=== PATIENT | male | born 1980 | race Caucasian/White ===

== ENCOUNTER 2025-10-24 16:17 | Inpatient (IN) | payer BC, SELFPAY ==
--- OUTSIDE RECORDS SUMMARY | 2025-10-23 17:35 | XMS_ITS | Encounter Summary ---
Author Organization [facility] Address [address] [place] [address] Care Team Providers Care Computer Aided Design Operator Name Role Phone Physician, No Pcp Primary Care Provider Unavaila ble Reason for Visit * Reason Comments Hallucinations Psychiatric Evaluation Encounter Details Date Type Department Care Team (Late st Contact Info) Description 10/23/2025 5:35 PM EST - 10/24/2025 3:57 PM EST Emergency [facility] [address] [place] [id number] Susanna Andrea MD [address] [place] [address] Will Hopson MD [address] [place] [address] Ciro Hernandez MD [address] [place] [id number] Elijah Walden MD [address] [place] [id number] Auditory hallucinations (Primary Dx); Paranoid delusion (CMS/HCC V24, CMS/HCC V28); Chest pain, unspecified type; Anxiety Discharge Disposition: Psychiatric Hospital Social History Tobacco Use Types Packs/Day Years Used Date Smoking Tobacco: Former Cigarettes 0 Q uit: 03/23/2011 Smokeless Tobacco: Never Quit: 03/23/2011 Alcohol Use Standard Drinks/Week Comments Not Currently 0 (1 standard drink = 0.6 oz pur e alcohol) Sex and Gender Information Value Date Recorded Sex Assigned at Male 10/23/2025 6:44 PM EST Legal Sex Male 4:52 AM EST Gender Identity Male 10/23/2025 6:44 PM EST Sexual Orientation Not on file documented as of this encounter Last Filed Vital Signs Vital Sign Reading Time Taken Comments Blood Pressure 129/82 10/24/2025 3:15 PM EST Pulse 68 10/24/2025 3:15 PM EST Temperature 36.6 C (97.9 F) 10/24/2025 3:15 PM EST Respiratory Rate 16 10/24/2025 3:15 PM EST Oxygen Saturation 97% 10/24/2025 3:15 PM EST Inhaled Oxygen Concentration - - Weight 90.7 kg (200 lb) 10/23/2025 5:20 PM EST Height 172.7 cm (5' 8 ) 10/23/2025 5:20 PM EST Body Mass Index 30.41 10/23/2025 5:20 PM EST documented in this encounter Functional Status * Are you deaf or do you have serious difficulty hearing? Answer Date of Assessment Author No 09/08/2025 9:39 AM Damian Cohen RN * Are you blind or do you have serious difficulty seeing, even when wearing glasses? Answer Date of Assessment Author No 09/08/2025 9:39 AM Damian Cohen RN * Do you have serious difficulty walking or climbing stairs? Answer Date of Assessment Author No 09/08/2025 9:39 AM Damian Cohen RN * Do you have serious difficulty dressing or bathing? Answer Date of Assessment Author No 09/08/2025 9:39 AM Damian Cohen RN * Because of a physical, mental, or emotional condition, do you have serious difficulty doing errandsalone such as visiting the doctor? Answer Date of Assessment Author No 09/08/2025 9:39 AM Damian Cohen RN * Calculated C-SSRS Risk Score (Lifetime/Recent) Answer Date of Assessment Author High Risk 10/24/2025 11:00 AM EST Mary Dorman RN * [place] Suicide Severity Rating Scale (Screener/Recent Self-Report) Question Answer Date of Assessment Author 1. Wish to be (Past 1 Month) Yes 10/24/2025 11:00 AM Mary Woo RN 2. Non-Specific Active Suicidal Thoughts (Past 1 Month) Yes 10/24/2025 11:00 AM Mary Woo RN 3. Active Suicidal Ideation with any Methods (Not Plan) Without Intent to Act (Past 1 Month) Yes 10/24/2025 11:00 AM Mary Woo RN 4. Active Suicidal Ideation with Some Intent to Act, Without Specific Plan (Past 1 Month) Yes 10/24/2025 11:00 AM Mary Woo RN 5. Active Suicidal Ideation with Specific Plan and Intent (Past 1 Month) Yes 10/24/2025 11:00 AM Mary Engle RN 6. Suicidal Behavior (Lifetime) Yes 10/24/2025 11:00 AM Mary Woo RN 6. Suicidal Behavior (3 Months) Yes 10/24/2025 11:00 AM Mary Woo RN documented as of this encounter Mental Status * Because of a physical, mental, or emotional condition, do you have serious difficulty concentrating, remembering, or making decisions? (5 years old or older) Answer Entry Date Author No 09/08/2025 9:39 AM EDT Damian Rios RN documented in this encounter Medications at Time of Discharge pantoprazole (PROTONIX) 40 mg EC tablet Take 1 tablet (40 mg total) by mouth 1 (one) time each day. 10/21/2025 documented as of this encounter Discharge Disposition Disposition Code Departure Means Destination Comment [facility] documented in this encounter Progress Notes * Elijah Walden MD - 10/24/2025 11:37 AM EST Angel Baker ED Course as of 10/24/25 1137 Misty Oct 23, [id number] ECG 12 lead 10/23/2025 18:06:18 on my read normal sinus rhythm, rate 87, regular, normal intervals, no ALBERT/D, no TWI, no prior for comparison [RG] 1910 Salicylate Level: <3.0 Negative [RG] 1910 TROPONIN I, HIGH SENSITIVITY: 3 WNL [RG] 191 Drug abuse screen 8a panel, urine All negative [RG] 1910 Ethanol Level: <3 Negative [RG] 1910 Methadone Screen, Urine: Negative Negative [RG] 191 Buprenorphine Screen Urine: Negative Negative [RG] 191 Comprehensive metabolic panel(!) Mild hypokalemia to 3.4, will replete, mild hyperbilirubinemia to 1.8, patient has no symptoms, do not feel this requires additional evaluation, otherwise within normal limits [RG] 1911 Acetaminophen Level: 11.1 Negative [RG] 191 PCP Scrn, Ur: Negative Negative [RG] 191 CBC and differential WNL [RG] 1927 Patient signed out to Dr. Hopson pending CXR, crisis evaluation once cleared [RG] 2022 Cleared to be seen by crisis [MZ] 2137 Seen by crisis plan for inpatient psych admission [MZ] FriOct 24, 2025 1136 Pt accepted for transfer to [place] under Dr Boston at 130pm today [TW] ED Course User Index [MZ] Will Hopson MD [RG] Susanna Andrea MD [TW] Elijah Walden MD Clinical Impressions as of 10/24/25 1137 Auditory hallucinations Paranoid delusion (CMS/HCC V24, CMS/HCC V28) Chest pain, unspecified type Anxiety * Radha Rodriguez LCSW - 10/24/2025 11:32 AM EST BED FOUND- Patient accepted to [facility], , by Dr. Angel Aldrich. They are requesting and ETA of 1:30. * Sandro Clinton - 10/24/2025 9:55 AM EST Rib Builder Note I met with the pt in his room, he was resting in bed. I was able to introduce myself and begin to build rapport. Using motivational interviewing, we were able to discuss and create a plan for his recovery path when he is d/c into the community. We spoke about medication to help with his cravings, to which I reached out to his providers to submit a consult with addiction services. He also requested a referral for a high school coach. I also spoke to him about peer recovery centers, and told him about the [place] [facility]. I provided him with a resource packet and my business card. I will continue to follow up and support the pt while in our care. Sandro Clinton Certified Rib Builder [address] [place] [address] [facility] [address] [place] [address] [facility] Office - Rib Builder Office - Addiction Office Rm 304 [email or web address] * Radha Rodriguez LCSW - 10/24/2025 7:27 AM EST Patients called, Maritza Hewitt [phone], she expressed concerns regarding the onset of hiscurrent presentation of hallucinations. She reported that the patients father had a similar situation when he abruptly stopped using substances and the issues resolved with medication treatment. She wanted us to be aware this may be related to past substance use verses mental health. * Yessenia Bustamante RN - 10/23/2025 5:22 PM EST Pt endorses hearing voices and increased depression. Endorses SI with plan to take pills denies HI. Pt states he feels his house is under surveillance and people are watching him. * Susanna Andrea MD - 10/23/2025 5:15 PM EST HPI Chief Complaint Patient presents with Hallucinations Psychiatric Evaluation Patient with history, per crisis note 09/08/2025, of BRIT, subclinical hypothyroidism, seen at that time for hallucinations, reported use of cocaine and marijuana, paranoia, discharged to outpatient program presents reporting worsening auditory hallucinations, states they are very negative, threatening, do not give him commands. He states he always has hallucinations but used to cover with alcohol but has been sober for last 2 years. He states cocaine use makes it worse, last use was a month ago, denies any other substance use. Patient states that he is feeling suicidal, has plan to OD on pills but does not have any pills in his possession, has not made attempts to harm himself. Patient denies HI, VH. He also notes that he gets regular intermittent chest pain, feels that this is associated with anxiety, most recently earlier today, this occurs daily, has no associated symptoms and no radiation. Patient denies history of heart or lung problems. He states [facility], has no psychiatrist or therapist locally, moved from [place] 2 years ago, only recently arranged new insurance in [place]. History provided by: Medical records and patient dopster used: No No data recorded Patient History Medical History[1] Surgical History[2] Family History[3] Social History Tobacco Use Smoking status: Former Current packs/day: 0.00 Types: Cigarettes Quit date: 03/23/2011 Years since quittin.5 Smokeless tobacco: Never Substance Use Topics Alcohol use: Not Currently Drug use: Not Currently Review of Systems Review of Systems Physical Exam ED Triage Vitals [10/23/25 1720] Temp Heart Rate Resp BP 37.2 ??C (99 ??F) 88 18 (!) 154/98 SpO2 Temp Source Heart Rate Source Patient Position 95 % Oral -- Sitting BP Location FiO2 (%) Right arm -- Physical Exam Vitals and nursing note reviewed. Constitutional: General: He is not in acute distress. Appearance: Normal appearance. He is not ill-appearing. Cardiovascular: Rate and Rhythm: Normal rate and regular rhythm. Heart sounds: Normal heart sounds. Pulmonary: Effort: Pulmonary effort is normal. Breath sounds: Normal breath sounds. Chest: Chest wall: No tenderness. Abdominal: Palpations: Abdomen is soft. Tenderness: There is no abdominal tenderness. Neurological: Mental Status: He is alert. Psychiatric: Mood and Affect: Mood is anxious. Speech: Speech normal. Behavior: Behavior is cooperative. Thought Content: Thought content is paranoid and delusional. Thought content includes suicidal ideation. Thought content does not include homicidal ideation. Thought content does not include suicidalplan. Comments: Mildly anxious ED Course & MDM Medical Decision Making Ddx: Schizophrenia, intoxication, SI, anxiety, panic attacks, less likely ACS, MSK, GI, pulmonary pathology Patient is mildly anxious but otherwise well-appearing with vitals hypertensive to 154/98 and otherwise WNL on RA on arrival and normal cardiopulmonary and abdominal exams, no chest wall tenderness. Will obtain EKG, CXR, trop, crisis labs. Will treat with hydroxyzine. Discussed plan, crisis consultonce medically cleared. Amount and/or Complexity of Data Reviewed External Data Reviewed: notes. Labs: ordered. Decision-making details documented in ED Course. Radiology: ordered. ECG/medicine tests: ordered and independent interpretation performed. Decision- making details documented in ED Course. Risk Diagnosis or treatment significantly limited by social determinants of health. ED Course as of 10/23/252009 [place] Oct 23, [id number] ECG 12 lead 10/23/2025 18:06:18 on my read normal sinus rhythm, rate 87, regular, normal intervals, no ALBERT/D, no TWI, no prior for comparison [RG] 191 Salicylate Level: <3.0 Negative [RG] 191 TROPONIN I, HIGH SENSITIVITY: 3 WNL [RG] 191 Drug abuse screen 8a panel, urine All negative [RG] 191 Ethanol Level: <3 Negative [RG] 191 Methadone Screen, Urine: Negative Negative [RG] 191 Buprenorphine Screen Urine: Negative Negative [RG] 191 Comprehensive metabolic panel(!) Mild hypokalemia to 3.4, will replete, mild hyperbilirubinemia to 1.8, patient has no symptoms, do not feel this requires additional evaluation, otherwise within normal limits [RG] 191 Acetaminophen Level: 11.1 Negative [RG] 191 PCP Scrn, Ur: Negative Negative [RG] 191 CBC and differential WNL [RG] [address] Patient signed out to Dr. Hopson pending CXR, crisis evaluation once cleared [RG] ED Course User Index [RG] Susanna Andrea MD Clinical Impressions as of 10/23/252009 Auditory hallucinations Paranoid delusion (CMS/HCC V24, CMS/HCC V28) Chest pain, unspecified type Anxiety Procedures Susanna Andrea MD 10/23/25 7037 [1] Past Medical History: Diagnosis Date Depression Sleep apnea DX:Sleep apnea; COMMENT: on CPAP Subclinical hypothyroidism DX:Subclinical hypothyroidism Tobacco dependence 01/05/2010 DX:Tobacco dependence; COMMENT: Quit 2009 [2] Past Surgical History: Procedure Laterality Date OTHER SURGICAL HISTORY PROCEDURE: DENIES PREVIOUS SURGERY [3] Family History Problem Relation Name Age of Onset Arthritis Mother Breast cancer Neg Hx Ovarian cancer Neg Hx Prostate cancer Neg Hx Colon cancer Neg Hx Diabetes Neg Hx Heart attack Neg Hx Stroke Neg Hx Susanna Andrea MD 10/23/252013 * Ciro Hernandez MD - 10/23/2025 5:15 PM EST The patient is signed out to me by Dr. Hopson. Please see his note for prior evaluation. Briefly thepatient is a 45-year-old male who is being evaluated for complaints of hallucinations. Patient has history of polysubstance illicit substance abuse. The patient was medically cleared by previous physician. There have been no further acute events overnight. Crisis has evaluated the patient and is recommending involuntary psychiatric hospitalization for further care. Patient care signed out to Dr. Walden at shift change for further management. Ciro Hernandez MD 10/24/25 0509 Ciro Hernandez MD 10/24/25 0509 documented in this encounter Consult Notes * Amos Haines - 10/23/2025 9:48 PM ESTAssociated Order(s): IP CONSULT TO DISTANCE LEARNING COORDINATOR Images from the original note were not included. Behavioral Health Services - Crisis Assessment Important times Time of arrival: 17:35 Time of referral: 19:13 Time of readiness: 20:27 Time assessment started: 20:30 Time of disposition: 21:30 Location: Emergency Room (ER) Consulted case with: AXEL Hancock Insurance information: Insurance: [employer] [facility], [facility] Verified by: Chris Haines - is member is not eligible Reason for Consultation / Presenting Problem: Angel Baker is being seen today for a consultive service at the request of Will Hopson MD to assess risk and identify appropriate level of care. Patient arrived reporting increased depression, hearing voices, and SI with a plan. During assessment patient discussed his struggles with AH. He stated that he began hearing voices in his 20s andhad been self medicating with substances and alcohol, however he stopped drinking 2 years ago and the last time he used cocaine was a month ago. Per patient, since he stopped using substances his voices have increased. He reported that he feels his house is bugged and that the voices watching him at home are reporting to those that are watching him at work and vice versa. Patient reported to feeling unsafe in his house due to feeling as though he is being watched and he is concerned about work as he's started to hear the voices there, where he drives frequently. reported that when she came home today, patient was talking to the wall in the house, which is what prompted her to take patient to the hospital. Patient and stated that patient did not hear his daughter talk to him today due to the voices, which was distressing for patient. Patient reported that he does not have outpatient mental health supports and does not take psychiatric medication as he had spent most of his life self medicating. He stated that he has been having SI because he wants the voices to go away and reported to a plan of overdosing on pills. Patient denied HI/VH. History of Present Illness: Angel is a 45 y.o. male with Chief Complaint Patient presents with Hallucinations Psychiatric Evaluation Social/Educational History: Guardian - if Yes, provide contact information: No [place] Status: No State Agency Involvement: None Rg's Order: No Marital Status: Alternative Placement Details: None Living Situation for patient: Patient lives with his and 8 year-old daughter. Per patient, they are trying to make room for his 20 year-old son to move in as well. Household Members/Age: spouse and child Friendships/Family/Social Peer Support/Relationships: Patient is close with his family and has familial support. Highest level of education: High school Comments (Include Learning Needs): None Occupation: Transport for a [employer] Employment/Extracurricular Activities/Hobbies: Unknown Limitations of Daily Activities: None Strengths/Supports: Patient is able to advocate for himself. Patient is help- seeking. Patient has familial support. Patient has stable income and housing. Collaterals, contact information, and engagement level: Therapist: None reported Psychiatrist: None reported PCP: Unknown Family: , Maritza Hewitt: - confirmed patient's concerns regarding his mental health and was able to provide more context and information on the situation. She reported that patient's son experienced similar symptoms since COVID and has been to psych inpatient multiple times. *Please keep updated on bed search Other: None reported Mental Status Speech: WNL Eye Contact: WNL Motor Activity: Slowed Mood: Depressed, Anxious Affect: Flat Sleep: Poor Appetite: Poor Memory: WNL Attention / Concentration: WNL Behavior: Cooperative, Paranoid, and Calm Appearance: Hallucinations: Auditory Delusions: Paranoid Thought Content: WNL SI: Presence HI: Denied Thought Process: WNL Orientation Impairment: Situation Insight: Poor Judgment: Poor Impulse Control: Poor Substance Use History (Including family history): Patient previously reported to starting to use alcohol and cocaine in his 20s. Tonight he reported that he last drank alcohol two years ago and last used cocaine a month ago. He reported that alcoholism runs on both sides of his family. Utox Results: Utox was negative. BAL was normal. Substance Use Treatment History: Patient denied substance use treatment history, reporting that he stopped drinking and using cold turkey . He expressed interest in speaking with a soccer coach and obtaining resources to support his sobriety. Mental Health Treatment History: Outpatient Mental Health Treatment: Patient does not have outpatient providers. Previous or Current Psychological Diagnosis: Previous assessment reports patient has been diagnosedwith depression and alcohol use. Prior Psychiatric Hospitalizations/Residential Treatment Facilities: Patient denied prior psychiatric hospitalizations. Other Comments Regarding Mental Health Treatment History: reported that patient was supposed to follow up with resources provided by [facility] last month but does not know if he did as he believes thevoices and surveillance are real and not related to his mental health. Mental Health Concerns in Family: Patient and reported that patient's son has a history of mental illness - patient expressed it as more depression based while stated that patient's son hasexperienced similar symptoms to patient. Patient also reported that schizophrenia runs in his family. Trauma History: Patient denied trauma and abuse history. Medications: Scheduled Meds: MEDSSCHEDULED[1] Continuous Infusions: MEDSCONTINUOUS[2] PRN Meds: MEDSPRN[3] Risk Assessment: Self-Harm: None Suicidal Behavior: None Homicidal Behavior: None Physical Assault: None Physical Aggression: None Property Damage: None Verbal Aggression: None Family history of suicide: None reported Protective Factors: Patient is able to advocate for himself. Patient is help- seeking. Patient has familial support. Patient has stable income and housing. Risk Factors: Patient does not have outpatient mental health support. Patient does not have psychiatric medications. Patient is recently sober. Patient struggles with paranoid delusions and AH. Suicide Risk: Based on patient's history and current presentation, their level of risk for intentional lethal harm is considered Moderate Safety Plan Completed: no No safety plan completed due to patient being an inpatient bed search. Interventions: Risk/crisis assessment, active listening, empathetic listening, support, brief counseling Response to interventions: Patient was cooperative, engaged, and aligned with speaking with S. DSM-5TR Diagnosis: F39 Unspecified Mood D/O F14.21 Cocaine Use, moderate Plan: Based on the information above, patient would benefit from an involuntary inpatient psychiatric admission for safety and containment, mood stabilization, diagnostic evaluation, medication evaluation,therapeutic milieu, development of coping skills, and coordination with outpatient and community supports. Upon discharge, patient would benefit from a set-up appointment to support outpatient mentalhealth treatment. Recommendations were discussed with requesting provider. It was a pleasure to assist Angel Baker here at [facility]. This report is written and finalized by: Amos Haines Behavioral Health Specialist [facility] (Tel): [phone] / : [phone] [1] [2] [3] documented in this encounter Plan of Treatment Not on file documented as of this encounter Procedures Procedure Name Priority Date/Time Associated Diagnosis Comments ECG ANNOTATED 10/24/2025 POCT GLUCOSE BLOOD Routine 10/23/2025 10 :38 PM EST XR CHEST 2 VIEWS STAT 10/23/2025 7:40 PM EST TROPONIN I HIGH SENSITIVITY STAT 10/23/2025 6:07 PM EST DRUG ABUSE SCREEN 8A PANEL, URINE STAT 10/23/2025 6:07 PM EST BUPRENORPHINE SCREEN, URINE STAT 10/23/2025 6:07 PM EST METHADONE SCREEN, URINE STAT 10/23/2025 6:07 PM EST CBC WITH AUTO DIFFERENTIAL STAT 10/23/2025 6:07 PM EST PHENCYCLIDINE, URINE STAT 10/23/2025 6:07 PM EST CBC AND DIFFERENTIAL STAT 10/23/2025 6:07 PM EST ETHANOL STAT 10/23/2025 6:07 PM EST ACETAMINOPHEN LEVEL STAT 10/23/2025 6 :07 PM EST SALICYLATE LEVEL STAT 10/23/2025 6:07 PM EST COMPREHENSIVE METABOLIC PANEL STAT 10/23/2025 6:07 PM EST ECG 12-LEAD STAT 10/23/2025 6:06 PM EST documented in this encounter Results * ECG-Annotated (10/24/2025) us Provider Onbase MD ECG ORDERABLES Final Result * POCT Glucose, blood (10/23/2025 10:38 PM EST) [facility] Glucose POCT 79 70 - 100 mg/dL 10/23/2025 10:39 PM EST [facility] Blood Capillary blood specimen / Unknown 10/23/2025 10:38 PM EST 10/23/2025 10:40 PM EST Will Hopson MD LAB POINT OF CARE TEST DOCKED DEVICE UNSOLICITED RESULTS Final Result [facility] [address] [place] [address], [place] [phone] * XR Chest 2 Views (10/23/2025 7:40 PM EST) Anatomical Region Laterality Modality Body Radiographic Cassidy ging 10/24/2025 8:05 AM EST Impressions 10/24/2025 8:05 AM EST No acute findings. -------- FINAL REPORT -------- Dictated By: Shankar Gardner Dictated Date: 10/24/2025 08:05 ET Assigned Physician: Shankar Gardner Reviewed and Electronically Signed By: Shankar Gardner Signed Date: 10/24/2025 08:05 ET Workstation ID: [id number] Transcribed By: Self Edit Transcribed Date: 10/24/2025 08:05 ET Narrative 10/24/2025 8:05 AM EST PROCEDURE: PA and lateral radiographs of the chest. HISTORY: pleuritic chest pain. COMPARISON: None. FINDINGS: Small endplate osteophytes in the spine. Lungs, pleural spaces, pulmonary vasculature, and cardiomediastinal contours are normal. Procedure Note Shankar Gardner MD - 10/24/2025 PROCEDURE: PA and lateral radiographs of the chest. HISTORY: pleuritic chest pain. COMPARISON: None. FINDINGS: Small endplate osteophytes in the spine. Lungs, pleural spaces, pulmonaryvasculature, and cardiomediastinal contours are normal. IMPRESSION: No acute findings. -------- FINAL REPORT -------- Dictated By: Shankar Gardner Dictated Date: 10/24/2025 08:05 ET Assigned Physician: Shankar Gardner Reviewed and Electronically Signed By: Shankar Gardner Signed Date: 10/24/2025 08:05 ET Workstation ID: [id number] Transcribed By: Self Edit Transcribed Date: 10/24/2025 08:05 ET Susanna Andrea MD IMG XR PROCEDURES Final Result * Troponin I High Sensitivity (10/23/2025 6:07 PM EST) High Sensitivity Troponin I 3 <=53 ng/L 10/23/2025 7:00 PM EST [facility] Blood Venous blood specimen / Unknown Venipuncture / Unknown 10/23/2025 6:07 PM EST 10/23/2025 6:31 PM EST us Susanna Andrea MD LAB BLOOD ORDERABLES Final Resul t [facility] [address] [place] [address], [place] [phone] * CBC auto differential (10/23/2025 6:07 PM EST) WBC 9.5 4.8 - 10.8 K/mcL LAB HEMETOLOGY METHOD 10/23/2025 6:34 PM [facility] RBC 5.30 4.50 - 5.50 M/mcL LAB HEMETOLOGY METHOD 10/23/2025 6:34 PM [facility] Hemoglobin 15.5 13.5 - 17.5 g/dL LAB HEMETOLOGY METHOD 10/23/2025 6:34 PM [facility] Hematocrit 45.7 42.0 - 54.0 % LAB HEMETOLOGY METHOD 10/23/2025 6:34 PM [facility] MCV 86.9 79.0 - 98.0 FL LAB HEMETOLOGY METHOD 10/23/2025 6:34 PM [facility] MCH 29.5 27.0 - 32.0 pcg LAB HEMETOLOGY METHOD 10/23/2025 6:34 PM [facility] MCHC 33.9 32.0 - 37.0 g/dL LAB HEMETOLOGY METHOD 10/23/2025 6:34 PM [facility] RDW 12.2 11.0 - 15.0 % LAB HEMETOLOGY METHOD 10/23/2025 6:34 PM [facility] Platelets 197 130 - 400 K/mcL LAB HEMETOLOGY METHOD 10/23/2025 6:34 PM [facility] MPV 10.8 7.0 - 11.0 FL LAB HEMETOLOGY METHOD 10/23/2025 6:34 PM [facility] NRBC 0.0 <1.0 % LAB HEMETOLOGY METHOD 10/23/2025 6:34 PM [facility] NRBC Absolute 0.00 <0.10 K/mcL LAB HEMETOLOGY METHOD 10/23/2025 6:34 PM [facility] Neutrophils Relative 65.0 % LAB HEMETOLOGY METHOD 10/23/2025 6:34 PM [facility] Lymphocytes Relative 26.2 % LAB HEMETOLOGY METHOD 10/23/2025 6:34 PM [facility] Monocytes Relative 6.6 % LAB HEMETOLOGY METHOD 10/23/2025 6:34 PM [facility] Eosinophils Relative 1.4 % LAB HEMETOLOGY METHOD 10/23/2025 6:34 PM [facility] Basophils Relative 0.5 % LAB HEMETOLOGY METHOD 10/23/2025 6:34 PM [facility] Immature Granulocytes Relative 0.3 % LAB HEMETOLOGY METHOD 10/23/2025 6:34 PM [facility] Neutrophils Absolute 6.15 1.50 - 7.00 K/mcL LAB HEMETOLOGY METHOD 10/23/2025 6:34 PM [facility] Lymphocytes Absolute 2.48 1.00 - 5.00 K/mcL LAB HEMETOLOGY METHOD 10/23/2025 6:34 PM [facility] Monocytes Absolute 0.62 0.20 - 1.00 K/mcL LAB HEMETOLOGY METHOD 10/23/2025 6:34 PM [facility] Eosinophils Absolute 0.13 0.00 - 0.50 K/[facility] LAB HEMETOLOGY METHOD 10/23/2025 6:34 PM EST [facility] Basophils Absolute 0.05 0.00 - 0.20 K/[facility] HEMETOLOGY METHOD 10/23/2025 6:34 PM EST [facility] Immature Granulocytes Absolute 0.03 0.00 - 0.03 K/[facility] HEMETOLOGY METHOD 10/23/2025 6:34 PM EST [facility] Blood Venous blood specimen / Unknown Venipuncture / Unknown 10/23/2025 6:07 PM EST 10/23/2025 6:31 PM EST Will Hopson MD LAB BLOOD ORDERABLES Alexus l Result Performing Organization Address [facility]/ZIP Co de Phone Number [facility] [address] [place] [address], [place] [phone] * Methadone, urine (10/23/2025 6:07 PM EST) Methadone Screen, Urine Negative Negative 10/23/2025 6:57 PM EST [facility] Comment: Assay cutoff 300 ng/mL Semi-quantitative assay for screening purposes only. Unconfirmed screening result should not be used for non-medical purposes. *ALTERNATE METHOD CONFIRMATION DONE UPON REQUEST ONLY* Urine Urine specimen obtained by clean catch procedure / Unknown Non-blood Collection / Unknown 10/23/2025 6:07 PM EST 10/23/2025 6:31 PM EST Will Hopson MD LAB URINE ORDERABLES Alexus l Result Performing Organization Address City/[facility]/ZIP Co de Phone Number [facility] [address] [place] [address], [place] [phone] * Phencyclidine, urine (10/23/2025 6:07 PM EST) PCP Scrn, Ur Negative Negative 10/23/2025 6:57 PM EST [facility] Comment: Assay cutoff 25 ng/mL Semi-quantitative assay for screening purposes only. Unconfirmed screening result should not be used for non-medical purposes. *ALTERNATE METHOD CONFIRMATION DONE UPON REQUEST ONLY* Urine Urine specimen obtained by clean catch procedure / Unknown Non-blood Collection / Unknown 10/23/2025 6:07 PM EST 10/23/2025 6:31 PM EST Will Hopson MD LAB URINE ORDERABLES Alexus l Result Performing Organization Address [facility] Co de Phone Number [facility] [address] [place] [address], * Buprenorphine screen, urine (10/23/2025 6:07 PM EST) Buprenorphine Screen Urine Negative Negative 10/23/2025 6:57 PM EST [facility] Urine Urine specimen obtained by clean catch procedure / Unknown Non-blood Collection / Unknown 10/23/2025 6:07 PM EST 10/23/2025 6:31 PM EST Narrative [facility] - 10/23/2025 6:57 PM EST Assay cutoff 5 ng/mL Semi-quantitative assay for screening purposes only. Unconfirmed screening result should not be used for non-medical purposes. *ALTERNATE METHOD CONFIRMATION DONE UPON REQUEST ONLY* Will Hopson MD LAB URINE ORDERABLES Alexus l Result Performing Organization Address City/[facility]/ZIP Co de Phone Number [facility] [address] [place] [address], [place] [phone] * Drug abuse screen 8a panel, urine (10/23/2025 6:07 PM EST) Amphetamine Screen, Ur Negative Negative 6:57 PM EST [facility] Comment:Certain OTC medicati ons containing ephedrine, phenylephrine, pseudoephedrine and phenylpropanolamine can cause false positive results. Barbiturate Screen, Ur Negative Negative 6:57 PM EST [facility] Benzodiazepine Screen, Ur Negative Negative 10/23/2025 6:57 PM [facility] Cocaine Screen, Ur Negative Negative 2024 6:57 PM [facility] Opiate Screen, Ur Negative Negative 025 6:57 PM [facility] Cannabinoid (THC) Screen, Ur Negative Negative 10/23/2025 6:57 PM EST [facility] Comment:Specimens from patie nts taking pantoprazole sodium (Protonix) have been shown to produce false positive results. Oxycodone Screen, Ur Negative Negative 10/02 6:57 PM EST [facility] Fentanyl, Ur Negative Negative 10/23/2025 6:57 PM [facility] Urine Urine specimen obtained by clean catch procedure / Unknown Non-blood Collection / Unknown 10/23/2025 6:07 PM EST 10/23/2025 6:31 PM EST Narrative [facility] - 10/23/2025 6:57 PM EST Assay cutoffs: Amphetamines 1000 ng/mL Barbiturates 200 ng/mL Benzodiazepines 200 ng/mL Cocaine 300 ng/mL Fentanyl 1 ng/mL Opiates 300 ng/mL Oxycodone 100 ng/mL THC 50 ng/mL Semi-quantitative assay for screening purposes only. Unconfirmed screening result should not be used for non-medical purposes. *ALTERNATE METHOD CONFIRMATION DONE UPON REQUEST ONLY* us Will Hopson MD LAB URINE ORDERABLES Alexus reardon Result [facility] [address] [place] [address], * Salicylate level (10/23/2025 6:07 PM EST) Salicylate Level <3.0 2.0 - 29.0 mg/dL 10/23/2025 7:07 PM EST [facility] Blood Venous blood specimen / Unknown Venipuncture / Unknown 10/23/2025 6:07 PM EST 10/23/2025 6:31 PM EST Will Hopson MD LAB BLOOD ORDERABLES Alexus l Result [facility] [address] [place] [address], [place] [phone] * Acetaminophen level (10/23/2025 6:07 PM EST) Acetaminophen Level 11.1 10.0 - 30.0 mcg/mL 10/23/2025 7:01 PM EST [facility] Blood Venous blood specimen / Unknown Venipuncture / Unknown 10/23/2025 6:07 PM EST 10/23/2025 6:31 PM EST Will Hopson MD LAB BLOOD ORDERABLES Alexus l Result Performing Organization Address City/[facility]/ZIP Co de Phone Number [facility] [address] [place] [address], [place] [phone] * Ethanol (10/23/2025 6:07 PM EST) Ethanol Level <3 0 - 10 mg/dL 10/23/2025 7:07 PM EST [facility] Blood Venous blood specimen / Unknown Venipuncture / Unknown 10/23/2025 6:07 PM EST 10/23/2025 6:31 PM EST Will Hopson MD LAB BLOOD ORDERABLES Alexus l Result [facility] [address] [place] [address], [place] [phone] * (ABNORMAL) Comprehensive metabolic panel (10/23/2025 6:07 PM EST) Sodium 140 133 - 145 mmol/L 10/23/2025 7:01 PM [facility] Potassium 3.4(L) 3.5 - 5.5 mmol/L 10/23/2025 7:01 PM [facility] Chloride 102 96 - 110 mmol/L 10/23/2025 7:01 PM [facility] CO2 27 21 - 32 mmol/L 10/23/2025 7:01 PM [facility] Anion Gap 11 3 - 11 10/23/2025 7:01 PM [facility] Glucose 103(H) 70 - 100 mg/dL 10/23/2025 7:01 PM [facility] BUN 15 5 - 25 mg/dL 10/23/2025 7:01 PM [facility] Creatinine 1.06 0.70 - 1.30 mg/dL 10/23/2025 7:01 PM [facility] eGFR 89 >=60 mL/min/1. 73m2 10/23/2025 7:01 PM [facility] Comment:Calculation based on the Chronic Kidney Disease Epidemiology Collaboration (CKD-EPI) equation refit without adjustment for race. BUN/Creatinine Ratio 14.2 10/23/2025 7:01 PM [facility] Calcium 9.6 8.5 - 10.5 mg/dL 10/23/2025 7:01 PM [facility] AST (SGOT) 27 10 - 42 unit/L 10/23/2025 7:01 PM [facility] ALT (SGPT) 28 10 - 60 unit/L 10/23/2025 7:01 PM [facility] Alkaline Phosphatase 87 42 - 121 unit/L 10/23/2025 7:01 PM EST [facility] Total Protein 7.4 6.0 - 8.0 g/dL 10/23/2025 7:01 PM EST [facility] Albumin 4.7 3.2 - 5.0 g/dL 10/23/2025 7:01 PM [facility] Total Bilirubin 1.8(H) 0.0 - 1.4 mg/dL 10/23/2025 7:01 PM [facility] Blood Venous blood specimen / Unknown Venipuncture / Unknown 10/23/2025 6:07 PM EST 10/23/2025 6:31 PM EST Will Hopson MD LAB BLOOD ORDERABLES Alexus l Result Performing Organization Address [facility] Co de Phone Number [facility] [address] [place] [address], [place] [phone] * ECG 12 lead (10/23/2025 6:06 PM EST) Ventricular Rate ECG 87 BPM GEMUSE Atrial Rate 87 BPM GEMUSE P-R Interval 136 ms GEMUSE QRS Duration 84 ms GEMUSE Q-T Interval 356 ms GEMUSE QTc 428 ms GEMUSE P Wave Harlan 37 degrees GEMUSE R Harlan -26 degrees GEMUSE T Harlan 43 degrees GEMUSE ECG Interpretation Normal sinus rhythm with sinus arrhythmia Normal ECG No previous ECGs available Confirmed by Holley THAPA JAMES ([id number]) on 10/24/2025 2:09:16 PM GEMUSE 10/23/2025 6:06 PM EST 10/24/2025 2:09 PM EST Will Hopson MD ECG ORDERABLES Final Res ult Performing Organization Address City/[facility]/ZIP Co de Phone Number GEMUSE documented in this encounter Visit Diagnoses Diagnosis Auditory hallucinations- Primary Hallucinations Paranoid delusion (CMS/HCC V24, CMS/HCC V28) Chest pain, unspecified type Anxiety Anxiety state, unspecified documented in this encounter Administered Medications Inactive Administered Medications - up to 3 most recent administrations Medication Order MAR Action Action Date Dose Rate Site hydrOXYzine pamoate (VISTARIL) capsule 50 mg 50 mg, oral, Once, On 10/23/25 at 1806, For 1 dose Given 10/23/2025 6:26 PM EST 50 mg pantoprazole (PROTONIX) EC tablet 40 mg 40 mg, oral, Every morning before breakfast, First dose on Fri10/25/25 at 0700, Do not crush, chew, or split. potassium chloride (KLOR-CON M20) CR tablet 40 mEq 40 mEq, oral, Once, On Fri10/23/25 at 1913, For 1 dose, Tablet may be swallowed whole (do not crush/chew/suck on) OR broken in half and each half swallowed separately OR dissolved (whole tablet) in ~4 ounces of water (allow ~2 minutes to dissolve, stir well and administer immediately). Given 10/23/2025 7:50 PM EST 40 mEq documented in this encounter Historical Medications * This list may reflect changes made after this encounter. pantoprazole (PROTONIX) 40 mg EC tablet Take 1 tablet (40 mg total) by mouth 1 (one) time each day. 10/21/2025 added in this encounter Active and Recently Administered Medications Times are shown in EST. Scheduled Medication Order 10/22/2025 10/23/2025 10/24/2025 hydrOXYzine pamoate (VISTARIL) capsule 50 mg (COMPLETED) 50 mg, oral, Once, On 10/23/25 at 1806, For 1 dose 1826 (Given - Provider: Katlyn Baker RN) pantoprazole (PROTONIX) EC tablet 40 mg 40 mg, oral, Every morning before breakfast, First dose on Fri10/25/25 at 0700, Do not crush, chew, or split. potassium chloride (KLOR-CON M20) CR tablet 40 mEq (COMPLETED) 40 mEq, oral, Once, On Fri10/23/25 at 1913, For 1 dose, Tablet may be swallowed whole (do not crush/chew/suck on) OR broken in half and each half swallowed separately OR dissolved (whole tablet) in ~4 ounces of water (allow ~2 minutes to dissolve, stir well and administer immediately). 1950 (Given - Provider: Katey Beck RN) documented in this encounter Orders Medications Ordered That Dharmesh ht Not Have Been Administered Count Last Ordered Date First Ordered Date pantoprazole (PROTONIX) EC tablet 40 mg 1 1 12/24/2024 Consult Count Last Ordered Date First Orde red Date IP CONSULT TO DISTANCE LEARNING COORDINATOR 1 10/23/2025 documented in this encounter Care Teams Computer Aided Design Operator Relationship Specialty Start Date End Date Physician, No Pcp PCP - General 10/23/25 documented as of this encounter
[2025-10-24 17:15] VITALS: BMI 31.3
[2025-10-24 17:18] VITALS: BP 149/92; PULSE 84; RESP 18; TEMP 37; O2SAT 98
--- NOTE | 2025-10-24 18:56 | PC.ADMIT ---
Angel is a 45 yr old male admitted at 16:26, on a conditional voluntary, from [facility]. His PMH includes BRIT & subclinical hypothyroidism & GERD. He uses a CPAP at home & his only rx?d medication is protonix. Angel presented to [facility] ED with worsening AH. He?s had them for years & drinking alcohol used to help. 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 Angel also endorses using marijuana gummies until he ran out about a week ago. He states these helped the AH too. Angel used cocaine regularly for many years & states he quit about a month and a half ago. Angel really wants to do the right thing and be better for his partner & kids, stating I feel like a burden to my family?. I am a lot to manage. Angel has never been treated for his hallucinations but is ready to seek treatment & wants to stay clean. Angel describes the AH as multiple voices talking constantly, saying bad things about him. The hallucinations used to only happen when he was home but have increased to following him all around in life, even at work. Angel is A&Ox4. He is polite & engaged, with good eye contact. He denies current SI/HI/VH but admits to feeling suicidal at times because the hallucinations are so bad. Angel contracts for safety. Skin check is unremarkable. He was oriented to the unit & placed on 15min safety checks.
[2025-10-24 20:04] VITALS: BP 132/83; PULSE 85; RESP 16; TEMP 37.1; O2SAT 95
--- OUTSIDE RECORDS SUMMARY | 2025-10-24 20:24 | XMS_ITS | Clinical Summary ---
Author Organization [facility] Address [address] [place] [address] Phone Care Team Providers Care Senior Back End Java Developer Name Role Phone Physician, No Pcp Primary Care Provider Unavaila ble Allergies No known active allergies Medications pantoprazole (PROTONIX) 40 mg EC tablet Take 1 tablet (40 mg total) by mouth 1 (one) time each day. 10/21/2025 Active Active Problems No known active problems Encounters Date Type Department Care Team Description 10/23/2025 5:35 PM EST - 10/24/2025 3:57 PM EST Emergency [facility] Emergency [address] [place] [phone] Susanna Andrea MD Zaidi, MD David Montanez John, MD Wyman, Tim, MD Auditory hallucinations (Primary Dx); Paranoid delusion ([facility] V24, [facility] V28); Chest pain, unspecified type; Anxiety Discharge Disposition: [facility] Hospital 09/08/2025 9:21 AM EDT - 09/08/2025 2:49 PM EDT Emergency [facility] Emergency [address] [place] [phone] Bebo Paul MD Polysubstance abuse ([facility] V24, CMS/[facility] V28) (Primary Dx); Paranoia (psychosis) (CMS/[facility] V24, CMS/[facility] V28) Discharge Disposition: Home or Self Care from Last 3 Months Surgical History Surgery Date Site/Laterality Comments OTHER SURGICAL HISTORY PROCEDURE: DENIES PREVIOUS SURGERY Medical History Medical History Date Comments Tobacco dependence 01/05/2010 DX:Tobacco de pendence; COMMENT: Quit 2009 Sleep apnea DX:Sleep apnea; COMMENT: on CPAP Subclinical hypothyroidism DX:Romeo bclinical hypothyroidism Depression Prediabetes Family History Medical History Relation Name Comments Arthritis Mother Breast cancer Neg Hx Colon cancer Neg Hx Diabetes Neg Hx Heart attack Neg Hx Ovarian cancer Neg Hx Prostate cancer Neg Hx Stroke Neg Hx Relation Name Status Comments Brother 1 Alive healthy Brother 2 Alive healthy Father Alive A&W Maternal Grandfather Maternal Grandmother Mother Alive arthritis, skin disorder Paternal Grandfather Paternal Grandmother Alive unknown health Son Alive healthy (age 9; 2015); Gabriella Social History Tobacco Use Types Packs/Day Years [...] PM EST Sexual Orientation Not on file Obstetrics History Last Filed Vital Signs Vital Sign Reading [...] Mass Index 30.41 10/23/2025 5:20 PM EST Plan of Treatment Health Maintenance Due Date Last Done Comments Hepatitis A Vaccines (1 of 2 - Risk 2-dose series) 2001 Hepatitis B Vaccines (1 of 3 - 19+ 3-dose series) 2001 HPV Vaccines (1 - 3-dose SCD M series) 2009 DTaP,Tdap,and Td Vaccines (2 - Td or Tdap) 01/05/2020 01/05/2010 Depression Screening 12/01/2024 COVID-19 Vaccine (1 - 2024-2 6 season) 2025 Influenza Vaccine (#1) 2025 Cholesterol Screening (Lipid Panel) 09/08/2025 HIV Screening 09/08/2025 Hepatitis C Screening 09/08/2025 Social Influencers of Health Screening 09/08/2025 RSV Immunization Adult Patie nts (1 - 1-dose 75+ series) 2057 HIB Vaccines Aged Out No longer eligi ble based on patient's age to complete this topic IPV Vaccines Aged Out No longer eligi ble based on patient's age to complete this topic MMR Vaccines Aged Out No longer eligi ble based on patient's age to complete this topic Meningococcal ACWY Vaccine Aged Out N o longer eligible based on patient's age to complete this topic Meningococcal B Vaccine Aged Out No l onger eligible based on patient's age to complete this topic Pneumococcal Vaccine: Pediat rics (0 to 5 Years) and At-Risk Patients (6 to 49 Years) Aged Out No longer eligi ble based on patient's age to complete this topic RSV Immunization Patients Un freddy 20 months Aged Out No longer eligible b ased on patient's age to complete this topic Varicella Vaccines Aged Out No longer eligible based on patient's age to complete this topic Procedures Procedure Name Priority Date/Time Associated Diagnosis Comments ECG ANNOTATED 10/24/2025 POCT GLUCOSE BLOOD Routine 10/23/2025 10 :38 PM EST XR CHEST 2 VIEWS STAT 10/23/2025 7:40 PM EST TROPONIN I HIGH SENSITIVITY STAT 10/23/2025 6:07 PM EST CBC WITH AUTO DIFFERENTIAL STAT 10/23/2025 6:07 PM EST METHADONE SCREEN, URINE STAT 10/23/2025 6:07 PM EST PHENCYCLIDINE, URINE STAT 10/23/2025 6:07 PM EST BUPRENORPHINE SCREEN, URINE STAT 10/23/2025 6:07 PM EST DRUG ABUSE SCREEN 8A PANEL, URINE STAT 10/23/2025 6:07 PM EST SALICYLATE LEVEL STAT 10/23/2025 6:07 PM EST ACETAMINOPHEN LEVEL STAT 10/23/2025 6 :07 PM EST ETHANOL STAT 10/23/2025 6:07 PM EST COMPREHENSIVE METABOLIC PANEL STAT 10/23/2025 6:07 PM EST CBC AND DIFFERENTIAL STAT 10/23/2025 6:07 PM EST ECG 12-LEAD STAT 10/23/2025 6:06 PM EST CBC WITH AUTO DIFFERENTIAL STAT 09/08/2025 10:05 AM EDT COMPREHENSIVE METABOLIC PANEL STAT 09/08/2025 10:05 AM EDT CBC AND DIFFERENTIAL STAT 09/08/2025 10:05 AM EDT ETHANOL STAT 09/08/2025 10:05 AM EDT FENTANYL, URINE STAT 09/08/2025 9:59 AM EDT DRUG ABUSE SCREEN 8A PANEL, URINE STAT 09/08/2025 9:59 AM EDT from Last 3 Months Results * ECG-Annotated (10/24/2025) us Provider Onbase MD ECG ORDERABLES Final Result * POCT Glucose, blood (10/23/2025 10:38 PM EST) [facility] Glucose POCT 79 70 - 100 mg/dL 10/23/2025 10:39 PM EST [facility] Blood Capillary blood specimen / Unknown 10/23/2025 10:38 PM EST 10/23/2025 10:40 PM EST Will Hopson MD LAB POINT OF CARE TEST DOCKED DEVICE UNSOLICITED RESULTS Final Result [place]UDIA RANGEL [place] ([facility]) [facility] [address] [place] [address], [place] [phone] * XR Chest 2 Views (10/23/2025 7:40 PM EST) Anatomical Region Laterality Modality Body Radiographic Cassidy ging 10/24/2025 8:05 AM EST Impressions 10/24/2025 8:05 AM EST No acute findings. -------- FINAL REPORT -------- Dictated By: Shankar Gardner Dictated Date: 10/24/2025 08:05 ET Assigned Physician: Shankar Gardner Reviewed and Electronically Signed By: Shankar Gardner Signed Date: 10/24/2025 08:05 ET Workstation ID: [id number] Transcribed By: Self Edit Transcribed Date: 10/24/2025 [...] Signed Date: 10/24/2025 08:05 ET Workstation ID: [id number] Transcribed By: Self Edit Transcribed Date: 10/24/2025 08:05 ET Susanna Andrea MD IMG XR PROCEDURES Final Result * Troponin I High Sensitivity (10/23/2025 6:07 PM EST) [facility] High Sensitivity Troponin I 3 <=53 ng/L 10/23/2025 7:00 PM EST [facility] Blood Venous blood specimen / Unknown Venipuncture / Unknown 10/23/2025 6:07 PM EST 10/23/2025 6:31 PM EST Susanna Andrea MD LAB BLOOD ORDERABLES Final Resul t [facility] [address] [place] [address], [place] [phone] * Drug abuse screen 8a panel, urine (10/23/2025 6:07 PM EST) Only the most recent of2 resultswithin the time period is included. [facility] Amphetamine Screen, Ur Negative Negative 6:57 PM EST [facility] Comment:Certain OTC medicati ons containing ephedrine, phenylephrine, pseudoephedrine and phenylpropanolamine can cause false positive results. Barbiturate Screen, Ur Negative Negative 6:57 PM EST [facility] Benzodiazepine Screen, Ur Negative Negative 10/23/2025 6:57 PM EST [facility] Cocaine Screen, Ur Negative Negative 2024 6:57 PM EST [facility] Opiate Screen, Ur Negative Negative 025 6:57 PM [facility] Cannabinoid (THC) Screen, Ur Negative Negative 10/23/2025 6:57 PM EST [facility] Comment:Specimens from patie nts taking pantoprazole sodium (Protonix) have been shown to produce false positive results. Oxycodone Screen, Ur Negative Negative 10/02 6:57 PM EST [facility] Fentanyl, Ur Negative Negative 10/23/2025 6:57 PM EST [facility] Urine Urine specimen obtained by clean catch procedure / Unknown Non-blood Collection / Unknown 10/23/2025 6:07 PM EST 10/23/2025 6:31 PM EST [facility] - 10/23/2025 6:57 PM EST Assay [...] MD LAB URINE ORDERABLES Alexus l Result [facility] [address] [place] [address], [place] [phone] * Buprenorphine screen, urine (10/23/2025 6:07 PM EST) [facility] Signature Buprenorphine Screen Urine Negative Negative 10/23/2025 6:57 PM EST [facility] Urine Urine specimen obtained by clean catch procedure / Unknown Non-blood Collection / Unknown 10/23/2025 6:07 PM EST 10/23/2025 6:31 PM EST [facility] - 10/23/2025 6:57 PM EST Assay cutoff 5 ng/mL Semi-quantitative assay for screening purposes only. Unconfirmed screening result should not be used for non-medical purposes. *ALTERNATE METHOD CONFIRMATION DONE UPON REQUEST ONLY* Will Hopson MD LAB URINE ORDERABLES Alexus l Result [facility] [address] [place] [address], [place] [phone] * Methadone, urine (10/23/2025 6:07 PM EST) [facility] Methadone Screen, Urine Negative Negative 10/23/2025 6:57 PM [facility] Comment: Assay cutoff 300 ng/mL Semi-quantitative assay for screening purposes only. Unconfirmed screening result should not be used for non-medical purposes. *ALTERNATE METHOD CONFIRMATION DONE UPON REQUEST ONLY* Urine Urine specimen obtained by clean catch procedure / Unknown Non-blood Collection / Unknown 10/23/2025 6:07 PM EST 10/23/2025 6:31 PM EST Will Hopson MD LAB URINE ORDERABLES Alexus l Result [facility] [address] [place] [address], [place] [phone] * CBC auto differential (10/23/2025 6:07 PM EST) Only the most recent of2 resultswithin the time period is included. [facility] WBC 9.5 4.8 - 10.8 K/mcL LAB HEMETOLOGY METHOD 10/23/2025 6:34 PM [facility] RBC 5.30 4.50 - 5.50 M/mcL LAB HEMETOLOGY METHOD 10/23/2025 6:34 PM [facility] Hemoglobin 15.5 13.5 - 17.5 g/dL LAB HEMETOLOGY METHOD 10/23/2025 6:34 PM [facility] Hematocrit 45.7 42.0 - 54.0 % LAB HEMETOLOGY METHOD 10/23/2025 6:34 PM [facility] MCV 86.9 79.0 - 98.0 FL LAB HEMETOLOGY METHOD 10/23/2025 6:34 PM [facility] MCH 29.5 27.0 - 32.0 pcg LAB HEMETOLOGY METHOD 10/23/2025 6:34 PM [facility] MCHC 33.9 32.0 - 37.0 g/dL LAB HEMETOLOGY METHOD 10/23/2025 6:34 PM [facility] RDW 12.2 11.0 - 15.0 % LAB HEMETOLOGY METHOD 10/23/2025 6:34 PM [facility] Platelets 197 130 - 400 K/mcL LAB HEMETOLOGY METHOD 10/23/2025 6:34 PM [facility] MPV 10.8 7.0 - 11.0 FL LAB HEMETOLOGY METHOD 10/23/2025 6:34 PM [facility] NRBC 0.0 <1.0 % LAB HEMETOLOGY METHOD 10/23/2025 6:34 PM [facility] NRBC Absolute 0.00 <0.10 K/mcL LAB HEMETOLOGY METHOD 10/23/2025 6:34 PM [facility] Neutrophils Relative 65.0 % LAB HEMETOLOGY METHOD 10/23/2025 6:34 PM [facility] Lymphocytes Relative 26.2 % LAB HEMETOLOGY METHOD 10/23/2025 6:34 PM [facility] Monocytes Relative 6.6 % LAB HEMETOLOGY METHOD 10/23/2025 6:34 PM [facility] Eosinophils Relative 1.4 % LAB HEMETOLOGY METHOD 10/23/2025 6:34 PM [facility] Basophils Relative 0.5 % LAB HEMETOLOGY METHOD 10/23/2025 6:34 PM [facility] Immature Granulocytes Relative 0.3 % LAB HEMETOLOGY METHOD 10/23/2025 6:34 PM [facility] Neutrophils Absolute 6.15 1.50 - 7.00 K/mcL LAB HEMETOLOGY METHOD 10/23/2025 6:34 PM EST [facility] Lymphocytes Absolute 2.48 1.00 - 5.00 K/[facility] LAB HEMETOLOGY METHOD 10/23/2025 6:34 PM EST [facility] Monocytes Absolute 0.62 0.20 - 1.00 K/[facility] LAB HEMETOLOGY METHOD 10/23/2025 6:34 PM EST [facility] Eosinophils Absolute 0.13 0.00 - 0.50 K/[facility] LAB HEMETOLOGY METHOD 10/23/2025 6:34 PM EST [facility] Basophils Absolute 0.05 0.00 - 0.20 K/[facility] LAB HEMETOLOGY METHOD 10/23/2025 6:34 PM [facility] Immature Granulocytes Absolute 0.03 0.00 - 0.03 K/[facility] LAB HEMETOLOGY METHOD 10/23/2025 6:34 PM EST [facility] Blood Venous blood specimen / Unknown Venipuncture / Unknown 10/23/2025 6:07 PM EST 10/23/2025 6:31 PM EST Will Hopson MD LAB BLOOD ORDERABLES Alexus l Result [facility] [address] [place] [address], * Phencyclidine, urine (10/23/2025 6:07 PM EST) PCP Scrn, Ur Negative Negative 10/23/2025 6:57 PM EST [facility] Comment: Assay cutoff 25 ng/mL Semi-quantitative assay for screening purposes only. Unconfirmed screening result should not be used for non-medical purposes. *ALTERNATE METHOD CONFIRMATION DONE UPON REQUEST ONLY* Urine Urine specimen obtained by clean catch procedure / Unknown Non-blood Collection / Unknown 10/23/2025 6:07 PM EST 10/23/2025 6:31 PM EST Will Hopson MD LAB URINE ORDERABLES Alexus l Result Performing Organization Address City/[facility]/ZIP Co de Phone Number [facility] [address] [place] [address], [place] [phone] * Ethanol (10/23/2025 6:07 PM EST) Only the most recent of2 resultswithin the time period is included. Ethanol Level <3 0 - 10 mg/dL 10/23/2025 7:07 PM EST [facility] Blood Venous blood specimen / Unknown Venipuncture / Unknown 10/23/2025 6:07 PM EST 10/23/2025 6:31 PM EST Will Hopson MD LAB BLOOD ORDERABLES Alexus l Result Performing Organization Address [facility] de Phone Number [facility] [address] [place] [address], [place] [phone] * Acetaminophen level (10/23/2025 6:07 PM EST) Acetaminophen Level 11.1 10.0 - 30.0 mcg/mL 10/23/2025 7:01 PM EST [facility] Blood Venous blood specimen / Unknown Venipuncture / Unknown 10/23/2025 6:07 PM EST 10/23/2025 6:31 PM EST Will Hopson MD LAB BLOOD ORDERABLES Alexus l Result Performing Organization Address City/[facility]/ZIP Co de Phone Number [facility] [address] [place] [address], [place] [phone] * Salicylate level (10/23/2025 6:07 PM EST) Salicylate Level <3.0 2.0 - 29.0 mg/dL 10/23/2025 7:07 PM [facility] Blood Venous blood specimen / Unknown Venipuncture / Unknown 10/23/2025 6:07 PM EST 10/23/2025 6:31 PM EST us Will Hopson MD LAB BLOOD ORDERABLES Alexus l Result [facility] [address] [place] [address], * (ABNORMAL) Comprehensive metabolic panel (10/23/2025 6:07 PM EST) Only the most recent of2 resultswithin the time period is included. Sodium 140 133 - 145 mmol/L 10/23/2025 7:01 PM [facility] Potassium 3.4(L) 3.5 - 5.5 mmol/L 10/23/2025 7:01 PM [facility] Chloride 102 96 - 110 mmol/L 10/23/2025 7:01 PM [facility] CO2 27 21 - 32 mmol/L 10/23/2025 7:01 PM [facility] Anion Gap 11 3 - 11 10/23/2025 7:01 PM [facility] Glucose 103(H) 70 - 100 mg/dL 10/23/2025 7:01 PM [facility] BUN 15 5 - 25 mg/dL 10/23/2025 7:01 PM [facility] Creatinine 1.06 0.70 - 1.30 mg/dL 10/23/2025 7:01 PM [facility] eGFR 89 >=60 mL/min/1. 73m2 10/23/2025 7:01 PM [facility] Comment:Calculation based on the Chronic Kidney Disease Epidemiology Collaboration (CKD-EPI) equation refit without adjustment for race. BUN/Creatinine Ratio 14.2 10/23/2025 7:01 PM [facility] Calcium 9.6 8.5 - 10.5 mg/dL 10/23/2025 7:01 PM [facility] AST (SGOT) 27 10 - 42 unit/L 10/23/2025 7:01 PM [facility] ALT (SGPT) 28 10 - 60 unit/L 10/23/2025 7:01 PM [facility] Alkaline Phosphatase 87 42 - 121 unit/L 10/23/2025 7:01 PM [facility] Total Protein 7.4 6.0 - 8.0 g/dL 10/23/2025 7:01 PM [facility] Albumin 4.7 3.2 - 5.0 g/dL 10/23/2025 7:01 PM [facility] Total Bilirubin 1.8(H) 0.0 - 1.4 mg/dL 10/23/2025 7:01 PM [facility] Blood Venous blood specimen / Unknown Venipuncture / Unknown 10/23/2025 6:07 PM EST 10/23/2025 6:31 PM EST us Will Hopson MD LAB BLOOD ORDERABLES Alexus l Result [facility] [address] [place] [address], * ECG 12 lead (10/23/2025 6:06 PM EST) Ventricular Rate ECG 87 BPM GEMUSE Atrial Rate 87 BPM GEMUSE P-R Interval 136 ms GEMUSE QRS Duration 84 ms GEMUSE Q-T Interval 356 ms GEMUSE QTc 428 ms GEMUSE P Wave Bruce 37 degrees GEMUSE R Bruce -26 degrees GEMUSE T Bruce 43 degrees GEMUSE ECG Interpretation Normal sinus rhythm with sinus arrhythmia Normal ECG No previous ECGs available Confirmed by Holley THAPA JAMES ([id number]) on 10/24/2025 2:09:16 PM GEMUSE 10/23/2025 6:06 PM EST 10/24/2025 2:09 PM EST us Will Hopson MD ECG ORDERABLES Final Res ult Performing Organization Address City/[facility]/ZIP Co de Phone Number GEMUSE * Fentanyl urine (09/08/2025 9:59 AM EDT) Fentanyl, Ur Negative Negative LAB CHEMISTRY METHOD 09/08/2025 10:53 AM EDT [facility] Urine Urine specimen obtained by clean catch procedure / Unknown Non-blood Collection / Unknown 09/08/2025 9:59 AM EDT 09/08/2025 10:16 AM EDT Narrative [facility] - 09/08/2025 10:53 AM EDT Assay cutoff 1 ng/mL Semi-quantitative assay for screening purposes only. Unconfirmed screening result should not be used for non-medical purposes. *ALTERNATE METHOD CONFIRMATION DONE UPON REQUEST ONLY* us Bebo Paul MD LAB URINE ORDERABLES Final Result Performing Organization Address [facility] Co de Phone Number [facility] [address] [place] [address], from Last 3 Months Insurance [facility] [employer] Care Teams Senior Back End Java Developer Relationship Specialty Start Date End Date Physician, No Pcp PCP - General 10/23/25
[2025-10-24 23:41] VITALS: PULSE 56; RESP 11; O2SAT 95
[2025-10-25 08:00] VITALS: BP 131/73; PULSE 78; TEMP 36.6; O2SAT 97
[2025-10-25 08:37] LABS: Cholesterol 219 mg/dL (<200); HDL Cholesterol 40 mg/dL (>40); Magnesium 2.7 mg/dL (1.6-2.6); Triglycerides 151 mg/dL (<150)
[2025-10-25 08:54] LABS: Free T4 (Free Thyroxine) 0.85 ng/dL (0.71-1.85); Thyroid Stimulating Hormone 2.10 uIU/mL (0.32-4.0)
--- NOTE | 2025-10-25 09:01 | HO.PM.IMCN ---
History of Present Illness Data of Consult Service Date: 10/25/25 Primary Care Provider: None Physician HPI Reason for consult: Medical H&P 45-year-old male with past medical history of BRIT, subclinical hypothyroidism, polysubstance abuse, paranoia presented to [facility] with worsening auditory hallucinations and SI. ED workup revealed normal EKG with normal sinus rhythm, troponin level within normal limits, tox screen negative, alcohol negative, methadone negative, buprenorphine negative, mild hypokalemia which was repleted, mild hyperbilirubinemia that is asymptomatic. CBC with no leukocytosis or anemia. On exam he has no medical concerns. Review of Systems Review of Systems: Denies any shortness of breath, chest pain, headaches, dysuria, abdominal pain or discomfort, nausea, vomiting or diarrhea. Denies fever or chills. [facility] Medical History (Updated 10/24/25 @ 17:17 by Jennyfer Aparicio APRN) BRIT (obstructive sleep apnea) Social History Household Members: Family Housing: House Do you presently have visiting nurse or other home services: No Patient Tobacco Use Status: Former Tobacco user Smoked in Last 30 Days: No Patient Interested in Nicotine Replacement: No Currently Displaying Signs/Symptoms of Drug Intoxication Withdrawal: No Have you been hit, kicked, punched, or otherwise hurt by someone within the past year? If so, by whom?: No Do you feel safe in your current relationship?: Yes Is there a partner from a previous relationship who is making you feel unsafe now?: No Are you made to feel afraid or neglected: No Spiritual Healthcare Practices: Yes Advance Directives: No Advance Directives Information Provided: No Do you have thoughts of harming others: None Do you have a plan to hurt others: No Plan Recently lost weight without trying: No Eating poorly because of decreased appetite: No Nutrition Risks: No Nutritional Risk Poor oral hygiene: No service: No Sexual orientation: Straight/Heterosexual Meds Allergies Allergy/AdvReac Type Severity Reaction Status Date / Time No Known Allergies Allergy Unverified 08/17/20 14:38 Active Medications: Current Medications Acetaminophen (Acetaminophen 325 Mg Tablet) 650 mg PO Q6H PRN PRN Reason: Headache/Pain, Scale 1-10 Al Hydroxide/Mg Hydroxide (Magnesium Hydrox/Alum Hydrox 30 Ml Oral.Susp) 30 ml PO Q6H PRN PRN Reason: Heartburn/Nausea Hydroxyzine HCl (Hydroxyzine Hcl 25 Mg Tablet) 25 mg PO Q6H PRN PRN Reason: mild anxiety Magnesium Hydroxide (Milk Of Magnesia 30 Ml Oral.Susp) 30 ml PO DAILY PRN PRN Reason: Constipation Nicotine Polacrilex (Nicotine Polacrilex 2 Mg Gum) 4 mg BUCCAL Q2H PRN PRN Reason: Nicotine Cravings Olanzapine (Olanzapine 5 Mg Tablet) 5 mg PO TID PRN PRN Reason: agitation/psychosis Omeprazole (Omeprazole 20 Mg Capsule.Dr) 20 mg PO DAILY@0630 WIL Last Admin: 10/25/25 06:24 Dose: 20 mg Trazodone HCl (Trazodone Hcl 50 Mg Tablet) 50 mg PO BEDTIME MRX1 PRN PRN Reason: Insomnia Home Medications ?Medication ?Instructions ?Recorded ?Confirmed ?Last Taken ?Type pantoprazole 40 mg tablet,delayed 40 mg PO DAILY 10/24/25 10/24/25 10/22/25 08:00 History release Physical Exam Vital Signs and Narrative: Vital Signs: Last Vital Signs Temp 97.9 F 10/25/25 08:00 Pulse 78 10/25/25 08:00 Resp 11 L 10/24/25 23:41 BP 131/73 10/25/25 08:00 Pulse Ox 97 10/25/25 08:00 O2 Del Method Room Air 10/25/25 08:00 BMI result Body Mass Index 31.3 Alert and oriented X3, calm and cooperative. Answers questions. Neuro: CN II-X11 intact, no deficits, visual acuity intact EYES: PERRLA, EOM intact ENT: Hearing intact, MMM Cardiac: S1 S2 RRR, No ectopy Pulmonary: lungs clear to auscultation, No increased WOB. Abdominal: BS active in all 4 quadrants, no guarding or tenderness MSK: Strength 5/5 upper and lower extremities : Deferred Extremities: No edema in lower extremities Psych: Mood stable, Quiet and cooperative. Skin: Warm and dry, Intact Results Labs Labs: Laboratory Results - last 24 hr 10/25/25 10/25/25 08:07 08:08 Estimat Average Glucose 111 Hemoglobin A1c % 5.5 Magnesium 2.7 H Triglycerides 151 H Cholesterol 219 H LDL Cholesterol, Calc 149 H HDL Cholesterol 40 L TSH 2.10 Free T4 0.85 Assessment and Plan (1) BRIT (obstructive sleep apnea): Status: Acute Plan 45-year-old male with a past medical history listed below presented to the emergency department with auditory hallucinations and suicide ideation. Now admitted for inpatient stabilization. Schizoaffective disorder/alcohol use disorder/cocaine use disorder/suicidal ideation Treatment per psychiatric team BRIT Home CPAP GERD Continue omeprazole Subclinical hypothyroidism TSH 2.10 and free T4 0.85 Continue to periodically monitor every 3 months Thank you for allowing me to participate in the care of this patient. Will follow with you, please notify medical provider with any changes in condition or concerns.
[2025-10-25 09:07] LABS: Folate 8.9 ng/mL (> or = 4.0); Vitamin B12 465 pg/mL (200-900)
--- NOTE | 2025-10-25 09:15 | HO.PSYADMNOT ---
HPI Date of Service: 10/25/25 Chief Complaint: Schizoaffective disorder, alcohol cocaine use diso Sources of Information: patient interviewed, chart reviewed and crisis/core team assessment reviewed HPI Subjective Notes: [place] Warning, Conditional Voluntary and 3 Day Narrative: seen at 12:45pm on 10/25/25 Patient is a 45-year-old male with history of chronic, untreated psychotic symptoms, cocaine, opiates and alcohol abuse disorder (sober for 1 month) who presents for worsening AH SI in the context of untreated psychotic symptoms. Patient reports that since his 20s, he has had auditory hallucinations; initially they were not that bothersome but eventually the became negative; by 32 years old he was hearing 2 voices talking about him saying negative, threatening things. Patient has subdued these voices with chronic, severe substance abuse for the past 20 years. He quit drinking 2 years ago but only quit cocaine, Percocet and cannabis 1 month ago. Without substance abuse to mask symptoms, AH has become increasingly worse. Patient says there is a voice in my head...every day..i feel i'm being monitored..it says it will harm me, frame me, harm my , my kids, it says I can't put him in half-way so i'm going to frame him... We are going to get him no matter what... I'm so worried, looking at the cameras to make sure my family is safe. Patient is paranoid he is being watched, groups of people following him; he tried to tell himself it was just radiofrequencies but believes it is real. Patient said that AH and paranoid ideations are distracting him from work, relationships and he can not even pay attention when talking to his children. He used to use cannabis gummies which quiet the voices however ran out about a week ago which has only made his symptoms worse. This past week, feeling overwhelmed, persecuted he became homeless and suicidal, about to overdose on pills but thought about his children and so instead reached out for help. Today on the unit, when his left the unit, he gave her a note saying something to the effect that the staff on the unit is out to get him... Patient was open to reality testing and seemed grateful to hear that this is his mind playing tricks on him and very much wanted to start medication. Patient denies history of manic type episodes or behaviors; positive history of trauma. Past Psychiatric History: No past psychiatric hospitalizations No past psychiatric medications No past SI or SA Medical Evaluation Reviewed: Hospitalist [facility] Pending [facility] Medical History (Updated 10/25/25 @ 17:56 by Angel Holman MD) Percocet use disorder, moderate, in early remission Cocaine use disorder Schizophrenia BRIT (obstructive sleep apnea) Family History: Maternal uncle schizophrenia Patient's son has significant mental health issues Social History: Lives with , son and daughter Substance History: Sober from alcohol for the past 2 years; used to be daily and heavy use since his 20s Sober from cocaine and Percocets for 1 month; was daily Trauma History: Positive trauma history Diagnostics Vital Signs (24Hr): Vital Signs - 24 hr 10/24/25 17:18 10/24/25 20:04 10/24/25 20:04 Temperature 98.6 F 98.8 F 98.8 F Pulse Rate 84 85 85 Respiratory Rate 18 16 16 Blood Pressure 149/92 H 132/83 132/83 Pulse Oximetry 98 95 95 Oxygen Delivery Method Room Air Room Air Room Air 10/24/25 23:41 10/25/25 08:00 Temperature 97.9 F Pulse Rate 78 Respiratory Rate 11 L Blood Pressure 131/73 Pulse Oximetry 97 Oxygen Delivery Method Room Air BMI result Body Mass Index 31.3 Labs Labs: Laboratory Results - last 48 hr 10/25/25 10/25/25 08:07 08:08 Estimat Average Glucose 111 Hemoglobin A1c % 5.5 Magnesium 2.7 H Triglycerides 151 H Cholesterol 219 H LDL Cholesterol, Calc 149 H HDL Cholesterol 40 L Vitamin B12 465 Folate 8.9 TSH 2.10 Free T4 0.85 Meds/Allergies Meds Home Medications ?Medication ?Instructions ?Recorded ?Confirmed ?Type pantoprazole 40 mg tablet,delayed 40 mg PO DAILY 10/24/25 10/24/25 History release Allergies Allergies Allergy/AdvReac Type Severity Reaction Status Date / Time No Known Allergies Allergy Unverified 08/17/20 14:38 Mental Status Exam Mental Status Exam Narrative: Pt is alert and oriented; behavior is cooperative, friendly and calm; patient is not in distress; dressed in casual attire with unkempt hair but adequate hygiene; mood is described as good and affect congruent; eye contact appropriate; Speech is normal rate, volume and prosody and not pressured; no psychomotor agitation/retardation present; thought process is organized and goal directed; Thought content is on tx; otherwise pertinent to relevant topics and without any delusional content, paranoid ideations or grandiosity; denies any SI/HI. Denies AVH and there is no evidence of perceptual disturbance. Patients insight and judgment appear intact. Assessment & Plan Assessment & Plan (1) Schizophrenia: Status: Acute Code(s): F20.9 - Schizophrenia, unspecified (2) BRIT (obstructive sleep apnea): Status: Acute Code(s): G47.33 - Obstructive sleep apnea (adult) (pediatric) (3) Cocaine use disorder: Status: Acute Code(s): F14.90 - Cocaine use, unspecified, uncomplicated (4) Percocet use disorder, moderate, in early remission: Status: Acute Code(s): F11.21 - Opioid dependence, in remission Plan HPI: Patient is a 45-year-old male with history of chronic, untreated psychotic symptoms, cocaine, opiates and alcohol abuse disorder (sober for 1 month) who presents for worsening AH SI in the context of untreated psychotic symptoms. Patient reports that since his 20s, he has had auditory hallucinations; initially they were not that bothersome but eventually the became negative; by 32 years old he was hearing 2 voices talking about him saying negative, threatening things. Patient has subdued these voices with chronic, severe substance abuse for the past 20 years. He quit drinking 2 years ago but only quit cocaine, Percocet and cannabis 1 month ago. Without substance abuse to mask symptoms, AH has become increasingly worse. Patient says there is a voice in my head...every day..i feel i'm being monitored..it says it will harm me, frame me, harm my , my kids, it says I can't put him in half-way so i'm going to frame him... We are going to get him no matter what... I'm so worried, looking at the cameras to make sure my family is safe. Patient is paranoid he is being watched, groups of people following him; he tried to tell himself it was just radiofrequencies but believes it is real. Patient said that AH and paranoid ideations are distracting him from work, relationships and he can not even pay attention when talking to his children. He used to use cannabis gummies which quiet the voices however ran out about a week ago which has only made his symptoms worse. This past week, feeling overwhelmed, persecuted he became homeless and suicidal, about to overdose on pills but thought about his children and so instead reached out for help. Today on the unit, when his left the unit, he gave her a note saying something to the effect that the staff on the unit is out to get him... Patient was open to reality testing and seemed grateful to hear that this is his mind playing tricks on him and very much wanted to start medication. Patient denies history of manic type episodes or behaviors; positive history of trauma. Formulation/clinical reasoning: Patient meets criteria for schizophrenia with ongoing auditory hallucinations and paranoid ideations; patient hears 2 voices talking about him at the same time. Remains paranoid and with AH but responded well to reality testing and very much wants to start medication. Radio Tower Technician reviewed risks/side effects of antipsychotic medication and patient agreed to start risperidone. -mild hyperlipidemia Plan: CV Q 15 minute checks Start risperidone 1 mg b.i.d. Add risperidone 0.5 mg t.i.d. p.r.n. for AH Clonidine p.r.n. Trazodone p.r.n. Patient educated on: diagnosis, medication risk/benefits, substance abuse and therapeutic strategies Informed Consent: understands, does not understand and further education needed Reason for continued inpatient stay Substantial Risk for: inability to function Statement Statement: I have reviewed the history and physical and performed a pertinent examination on my patient. No changes have occurred unless specified. If the History and Physical was not performed prior to admission, the Hospitalist's service will be consulted for completing the admission physical. Time Spent With Patient Time: Total time managing care of this patient today ____ minutes.
[2025-10-25 14:08] VITALS: BP 145/96
[2025-10-25 22:56] VITALS: PULSE 56; RESP 11; O2SAT 95
[2025-10-26 08:00] VITALS: BP 128/81; PULSE 112; TEMP 36.4; O2SAT 97
--- NOTE | 2025-10-26 09:32 | P.PNPSI_ITS ---
Subjective Subjective Date of Service: 10/26/25 Reason For Visit: Schizoaffective disorder, alcohol cocaine use diso Subjective Notes: Conditional Voluntary Interim History: Patient found ambulating in the hallway. He reports moderate depression. He reports persistent auditory hallucinations which he states are not too loud and that Risperdal which he started yesterday reduce the voices by 10%. He usually hears 1 or 2 voices which says negative things but no command to hurt himself or others. Earplugs calms the voices a little bit. He denies anxiety. He denies SI/HI/VH. Medication Compliance: Yes Side effects from medications: No Attending Groups: Intermittent Review of Systems Acute medical concerns: No Mental Status Exam Mental Status Exam Narrative: Appearance: Casually dressed, adequate hygiene and grooming Behavior: Calm and cooperative throughout the interview. Eye contact is appropriate, and there are no signs of psychomotor agitation or retardation Speech: Normal volume and prosody Thought process: Logical and goal-directed Thought content: On treatment Mood: Depressed Affect: Mood-congruent SI: Denies HI: Denies VH/AH: Reports AH Delusions: None Insight/judgment: Fair insight and judgment Memory/cog: Alert, oriented x 4. grossly intact to conversational testing Diagnostics Vital Signs (24Hr): Vital Signs - 24 hr 10/25/25 14:08 10/25/25 22:56 10/26/25 08:00 Temperature 97.5 F Pulse Rate 112 H Respiratory Rate 11 L Blood Pressure 145/96 H 128/81 Pulse Oximetry 97 Oxygen Delivery Method Room Air BMI result Body Mass Index 31.3 Labs Labs: Laboratory Results - last 48 hr 10/25/25 10/25/25 08:07 08:08 Estimat Average Glucose 111 Hemoglobin A1c % 5.5 Magnesium 2.7 H Triglycerides 151 H Cholesterol 219 H LDL Cholesterol, Calc 149 H HDL Cholesterol 40 L Vitamin B12 465 Folate 8.9 TSH 2.10 Free T4 0.85 Medications Medications Current Medications Acetaminophen (Acetaminophen 325 Mg Tablet) 650 mg PO Q6H PRN PRN Reason: Headache/Pain, Scale 1-10 Al Hydroxide/Mg Hydroxide (Magnesium Hydrox/Alum Hydrox 30 Ml Oral.Susp) 30 ml PO Q6H PRN PRN Reason: Heartburn/Nausea Clonidine HCl (Clonidine Hcl 0.1 Mg Tablet) 0.1 mg PO Q4H PRN; Protocol PRN Reason: moderate anxiety Last Admin: 10/25/25 14:08 Dose: 0.1 mg Hydroxyzine HCl (Hydroxyzine Hcl 25 Mg Tablet) 25 mg PO Q6H PRN PRN Reason: mild anxiety Magnesium Hydroxide (Milk Of Magnesia 30 Ml Oral.Susp) 30 ml PO DAILY PRN PRN Reason: Constipation Nicotine Polacrilex (Nicotine Polacrilex 2 Mg Gum) 4 mg BUCCAL Q2H PRN PRN Reason: Nicotine Cravings Omeprazole (Omeprazole 20 Mg Capsule.Dr) 20 mg PO DAILY@0630 [facility] Last Admin: 10/26/25 07:01 Dose: 20 mg Risperidone (Risperidone 1 Mg Tablet) 1 mg PO BID [facility] Last Admin: 10/26/25 09:18 Dose: 1 mg Risperidone (Risperidone 0.5 Mg Tablet) 0.5 mg PO TID PRN PRN Reason: AH Trazodone HCl (Trazodone Hcl 50 Mg Tablet) 50 mg PO BEDTIME MRX1 PRN PRN Reason: Insomnia Allergies Allergies Allergy/AdvReac Type Severity Reaction Status Date / Time No Known Allergies Allergy Unverified 08/17/20 14:38 Assessment & Plan Assessment & Plan (1) Schizophrenia: Status: Acute Code(s): F20.9 - Schizophrenia, unspecified (2) BRIT (obstructive sleep apnea): Status: Acute Code(s): G47.33 - Obstructive sleep apnea (adult) (pediatric) (3) Cocaine use disorder: Status: Acute Code(s): F14.90 - Cocaine use, unspecified, uncomplicated (4) Percocet use disorder, moderate, in early remission: Status: Acute Code(s): F11.21 - Opioid dependence, in remission Plan HPI: Patient is a 45-year-old male with history of chronic, untreated psychotic symptoms, cocaine, opiates and alcohol abuse disorder (sober for 1 month) who presents for worsening SI in the context of untreated psychotic symptoms. Patient reports that since his 20s, he has had auditory hallucinations; initially they were not that bothersome but eventually the became negative; by 32 years old he was hearing 2 voices talking about him saying negative, threatening things. Patient has subdued these voices with chronic, severe substance abuse for the past 20 years. He quit drinking 2 years ago but only quit cocaine, Percocet and cannabis 1 month ago. Without substance abuse to mask symptoms, AH has become increasingly worse. Patient says there is a voice in my head...every day..i feel i'm being monitored..it says it will harm me, frame me, harm my , my kids, it says I can't put him in [place] [facility] so i'm going to frame him... We are going to get him no matter what... I'm so worried, looking at the cameras to make sure my family is safe. Patient is paranoid he is being watched, groups of people following him; he tried to tell himself it was just radiofrequencies but believes it is real. Patient said that AH and paranoid ideations are distracting him from work, relationships and he can not even pay attention when talking to his children. He used to use cannabis gummies which quiet the voices however ran out about a week ago which has only made his symptoms worse. This past week, feeling overwhelmed, persecuted he became homeless and suicidal, about to overdose on pills but thought about his children and so instead reached out for help. Today on the unit, when his left the unit, he gave her a note saying something to the effect that the staff on the unit is out to get him... Patient was open to reality testing and seemed grateful to hear that this is his mind playing tricks on him and very much wanted to start medication. Patient denies history of manic type episodes or behaviors; positive history of trauma. Formulation/clinical reasoning: Patient meets criteria for schizophrenia with ongoing auditory hallucinations and paranoid ideations; patient hears 2 voices talking about him at the same time. Remains paranoid and with AH but responded well to reality testing and very much wants to start medication. Basic Sciences Professor reviewed risks/side effects of antipsychotic medication and patient agreed to start risperidone. -mild hyperlipidemia 10/26: Patient reports persistent auditory hallucinations which he states are not too loud and that Risperdal which he started yesterday reduce the voices by 10%. He usually hears 1 or 2 voices which says negative things but no command to hurt himself or others. Earplugs calms the voices a little bit. He denies anxiety. He denies SI/HI/VH. Continue current treatment regimen. May increase Risperdal to 1.5 mg twice daily on 10/27/2025. Plan: CV Q 15 minute checks Start risperidone 1 mg b.i.d. Add risperidone 0.5 mg t.i.d. p.r.n. for AH Clonidine p.r.n. Trazodone p.r.n. Patient educated on: therapeutic strategies Reason for continued inpatient stay Substantial Risk for: rapid decompensation Time Spent With Patient Time: Total time managing care of this patient today ____ minutes.
[2025-10-26 19:36] VITALS: BP 128/79; PULSE 98; TEMP 36.9; O2SAT 96
[2025-10-26 22:42] VITALS: PULSE 56; RESP 16; O2SAT 95
[2025-10-27 08:00] VITALS: BP 150/77; PULSE 99; RESP 16; TEMP 36.6; O2SAT 96
[2025-10-27 10:08] VITALS: BP 136/84
[2025-10-27 20:00] VITALS: BP 130/82; PULSE 98; TEMP 36.5; O2SAT 97
--- NOTE | 2025-10-27 22:29 | P.PNPSI_ITS ---
Subjective Subjective Date of Service: 10/27/25 Reason For Visit: Schizoaffective disorder, alcohol cocaine use diso Subjective Notes: Conditional Voluntary Healthcare Proxy: No Guardianship: No Medical Problems Affecting Mental Status: No Interim History: Medical record and nursing notes reviewed; case discussed during rounds with team/nursing staff, and met with patient for supportive therapy/psychoeducation, as well as medication management. Meet with patient in room. Report very anxious this morning but he does not know why. However, as we discuss, he recognizes holiday is the cause of his anxiety, Report hearing more voices when he is anxious. Report the voices has been slow down with less intense with meds. Report paranoid thoughts as he thinks people trying to get into his house to hurt his family. Per nursing, patient slept for 8 hours, isolated in room, working on word puzzle. Report poor appetite. Compliant with meds. No side effects. Will increase Risperidone up to 2mg BID for voices. Medication Compliance: Yes Side effects from medications: No Review of Systems Acute medical concerns: No Medical Review of Systems: unchanged Review of Systems Review of Systems Denies any shortness of breath, chest pain, headaches, dysuria, abdominal pain or discomfort, nausea, vomiting or diarrhea. Denies fever or chills. Mental Status Exam Mental Status Exam Narrative: Appearance: Casually dressed, adequate hygiene and grooming Behavior: Calm and cooperative throughout the interview. Eye contact is appropriate, and there are no signs of psychomotor agitation or retardation Speech: Normal volume and prosody Thought process: Logical and goal-directed Thought content: On treatment Mood: anxious Affect: Mood-congruent SI: Denies HI: Denies VH/AH: Reports AH and paranoia but improved with meds Delusions: None Insight/judgment: Fair insight and judgment Memory/cog: Alert, oriented x 4. grossly intact to conversational testing Diagnostics Vital Signs (24Hr): Vital Signs - 24 hr 10/26/25 22:42 10/27/25 08:00 10/27/25 10:08 Temperature 97.8 F Pulse Rate 99 Respiratory Rate 16 16 Blood Pressure 150/77 H 136/84 Pulse Oximetry 96 Oxygen Delivery Method Room Air 10/27/25 20:00 Temperature 97.7 F Pulse Rate 98 Respiratory Rate Blood Pressure 130/82 Pulse Oximetry 97 Oxygen Delivery Method Room Air BMI result Body Mass Index 31.3 Medications Medications Current Medications Acetaminophen (Acetaminophen 325 Mg Tablet) 650 mg PO Q6H PRN PRN Reason: Headache/Pain, Scale 1-10 Al Hydroxide/Mg Hydroxide (Magnesium Hydrox/Alum Hydrox 30 Ml Oral.Susp) 30 ml PO Q6H PRN PRN Reason: Heartburn/Nausea Clonidine HCl (Clonidine Hcl 0.1 Mg Tablet) 0.1 mg PO Q4H PRN; Protocol PRN Reason: moderate anxiety Last Admin: 10/27/25 10:08 Dose: 0.1 mg Hydroxyzine HCl (Hydroxyzine Hcl 25 Mg Tablet) 25 mg PO Q6H PRN PRN Reason: mild anxiety Magnesium Hydroxide (Milk Of Magnesia 30 Ml Oral.Susp) 30 ml PO DAILY PRN PRN Reason: Constipation Nicotine Polacrilex (Nicotine Polacrilex 2 Mg Gum) 4 mg BUCCAL Q2H PRN PRN Reason: Nicotine Cravings Omeprazole (Omeprazole 20 Mg Capsule.Dr) 20 mg PO DAILY@0630 [facility] Last Admin: 10/27/25 06:27 Dose: 20 mg Risperidone (Risperidone 0.5 Mg Tablet) 0.5 mg PO TID PRN PRN Reason: AH Risperidone (Risperidone 2 Mg Tablet) 2 mg PO BID [facility] Last Admin: 10/27/25 20:11 Dose: 2 mg Trazodone HCl (Trazodone Hcl 50 Mg Tablet) 50 mg PO BEDTIME MRX1 PRN PRN Reason: Insomnia Allergies Allergies Allergy/AdvReac Type Severity Reaction Status Date / Time No Known Allergies Allergy Unverified 08/17/20 14:38 Assessment & Plan Assessment & Plan (1) Schizophrenia: Status: Acute Code(s): F20.9 - Schizophrenia, unspecified (2) BRIT (obstructive sleep apnea): Status: Acute Code(s): G47.33 - Obstructive sleep apnea (adult) (pediatric) (3) Cocaine use disorder: Status: Acute Code(s): F14.90 - Cocaine use, unspecified, uncomplicated (4) Percocet use disorder, moderate, in early remission: Status: Acute Code(s): F11.21 - Opioid dependence, in remission Plan HPI: Patient is a 45-year-old male with history of chronic, untreated psychotic symptoms, cocaine, opiates and alcohol abuse disorder (sober for 1 month) who presents for worsening AH SI in the context of untreated psychotic symptoms. Patient reports that since his 20s, he has had auditory hallucinations; initially they were not that bothersome but eventually the became negative; by 32 years old he was hearing 2 voices talking about him saying negative, threatening things. Patient has subdued these voices with chronic, severe substance abuse for the past 20 years. He quit drinking 2 years ago but only quit cocaine, Percocet and cannabis 1 month ago. Without substance abuse to mask symptoms, AH has become increasingly worse. Patient says there is a voice in my head...every day..i feel i'm being monitored..it says it will harm me, f rame me, harm my , my kids, it says I can't put him in snf so i'm going to frame him... We are going to get him no matter what... I'm so worried, looking at the cameras to make sure my family is safe. Patient is paranoid he is being watched, groups of people following him; he tried to tell himself it was just radiofrequencies but believes it is real. Patient said that AH and paranoid thierry ations are distracting him from work, relationships and he can not even pay attention when talking to his children. He used to use cannabis gummies which quiet the voices however ran out about a week ago which has only made his symptoms worse. This past week, feeling overwhelmed, persecuted he became homeless and suicidal, about to overdose on pills but thought about his children and so instead reached out for help. Today on the unit, when his left the unit, he gave her a note saying something to the effect that the staff on the unit is out to get him... Patient was open to reality testing and seemed grateful to hear that this is his mind playing tricks on him and very much wanted to start medication. Patient denies history of manic type episodes or behaviors; positive history of trauma. Formulation/clinical reasoning: Patient meets criteria for schizophrenia with ongoing auditory hallucinations and paranoid ideations; patient hears 2 voices talking about him at the same time. Remains paranoid and with AH but responded well to reality testing and very much wants to start medication. Tile And Marble Installer reviewed risks/side effects of antipsychotic medication and patient agreed to start risperidone. -mild hyperlipidemia 10/26: Patient reports persistent auditory hallucinations which he states are not too loud and that Risperdal which he started yesterday reduce the voices by 10%. He usually hears 1 or 2 voices which says negative things but no command to hurt himself or others. Earplugs calms the voices a little bit. He denies anxiety. He denies SI/HI/VH. Continue current treatment regimen. May increase Risperdal to 1.5 mg twice daily on 10/27/2025. 10/27/25: Meet with patient in room. Report very anxious this morning but he does not know why. However, as we discuss, he recognizes holiday is the cause of his anxiety, Report hearing more voices when he is anxious. Report the voices has been slow down with less intense with meds. Report paranoid thoughts as he t hinks people trying to get into his house to hurt his family. Per nursing, patient slept for 8 hours, isolated in room, working on word puzzle. Report poor appetite. Compliant with meds. No side effects. Increased Rispedone up to 2mg BID for voices Plan: CV Q 15 minute checks Start risperidone 1 mg b.i.d. increase up to 2mg BID on 10/27/25 Add risperidone 0.5 mg t.i.d. p.r.n. for AH Clonidine p.r.n. Trazodone p.r.n. Patient educated on: diagnosis, medication risk/benefits and therapeutic strategies Informed Consent: understands and further education needed Reason for continued inpatient stay Substantial Risk for: med/psych decompensation Time Spent With Patient Time: Total time managing care of this patient today ____ minutes.
[2025-10-28 08:30] VITALS: BP 129/81; PULSE 90; RESP 16; TEMP 36.6; O2SAT 96
[2025-10-28 09:54] VITALS: BP 146/89
--- NOTE | 2025-10-28 16:15 | P.PNPSI_ITS ---
Subjective Subjective Date of Service: 10/28/25 Reason For Visit: Schizoaffective disorder, alcohol cocaine use diso Subjective Notes: Conditional Voluntary Healthcare Proxy: No Guardianship: No Medical Problems Affecting Mental Status: No Interim History: Medical record and nursing notes reviewed; case discussed during rounds with team/nursing staff, and met with patient for supportive therapy/psychoeducation, as well as medication management. Meet with patient in assigned room. Patient is using headphone for music as coping skills. Report he feels anxious earlier, took Clonidine which is very helpful for anxiety. Report the voices are mumbling today with less intense. Report feeling someone try to do harm to him and other family members. Report appetite poor but better, sleep good. Patient says reasons for why he declined to see his family was that he missed his daughter and talked to her on the phone but cannot but cannot see her which made him upset. Therefore, patient cancelled all visits in the after. However, he saw a couple family members prior to that. Report that he used to use different drugs alcohol, Percecet, RIGO and THC. 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 Report that he would quit THC and other substances as it cause too much trouble in his life and some MJ kinds affects this mental health as he hears voices while using Sativa. Denies SI/SIB/HI/AVH. Discussed with patient regarding medication change targeting psychosis symptom and possible Prolactin level in a couple of days. Patient is receptive. Medication Compliance: Yes Side effects from medications: No Attending Groups: No Review of Systems Acute medical concerns: No Medical Review of Systems: unchanged Review of Systems Review of Systems Denies any shortness of breath, chest pain, headaches, dysuria, abdominal pain or discomfort, nausea, vomiting or diarrhea. Denies fever or chills. Mental Status Exam Mental Status Exam Narrative: Appearance: Casually dressed, adequate hygiene and grooming Behavior: Calm and cooperative throughout the interview. Eye contact is appropriate, and there are no signs of psychomotor agitation or retardation Speech: Normal volume and prosody Thought process: Logical and goal-directed Thought content: On treatment Mood: anxious Affect: Mood-congruent SI: Denies HI: Denies VH/AH: Reports AH and paranoia but improved with meds Delusions: None Insight/judgment: Fair insight and judgment Memory/cog: Alert, oriented x 4. grossly intact to conversational testing Diagnostics Vital Signs (24Hr): Vital Signs - 24 hr 10/27/25 20:00 10/28/25 08:30 10/28/25 09:54 Temperature 97.7 F 97.9 F Pulse Rate 98 90 Respiratory Rate 16 Blood Pressure 130/82 129/81 146/89 H Pulse Oximetry 97 96 Oxygen Delivery Method Room Air Room Air BMI result Body Mass Index 31.3 Medications Medications Current Medications Acetaminophen (Acetaminophen 325 Mg Tablet) 650 mg PO Q6H PRN PRN Reason: Headache/Pain, Scale 1-10 Al Hydroxide/Mg Hydroxide (Magnesium Hydrox/Alum Hydrox 30 Ml Oral.Susp) 30 ml PO Q6H PRN PRN Reason: Heartburn/Nausea Clonidine HCl (Clonidine Hcl 0.1 Mg Tablet) 0.1 mg PO Q4H PRN; Protocol PRN Reason: moderate anxiety Last Admin: 10/28/25 09:54 Dose: 0.1 mg Hydroxyzine HCl (Hydroxyzine Hcl 25 Mg Tablet) 25 mg PO Q6H PRN PRN Reason: mild anxiety Magnesium Hydroxide (Milk Of Magnesia 30 Ml Oral.Susp) 30 ml PO DAILY PRN PRN Reason: Constipation Nicotine Polacrilex (Nicotine Polacrilex 2 Mg Gum) 4 mg BUCCAL Q2H PRN PRN Reason: Nicotine Cravings Omeprazole (Omeprazole 20 Mg Capsule.Dr) 20 mg PO DAILY@0630 [facility] Last Admin: 10/28/25 06:40 Dose: 20 mg Risperidone (Risperidone 0.5 Mg Tablet) 0.5 mg PO TID PRN PRN Reason: AH Risperidone (Risperidone 2 Mg Tablet) 2 mg PO BID [facility] Last Admin: 10/28/25 08:33 Dose: 2 mg Trazodone HCl (Trazodone Hcl 50 Mg Tablet) 50 mg PO BEDTIME MRX1 PRN PRN Reason: Insomnia Allergies Allergies Allergy/AdvReac Type Severity Reaction Status Date / Time No Known Allergies Allergy Unverified 08/17/20 14:38 Assessment & Plan Assessment & Plan (1) Schizophrenia: Status: Acute Code(s): F20.9 - Schizophrenia, unspecified (2) BRIT (obstructive sleep apnea): Status: Acute Code(s): G47.33 - Obstructive sleep apnea (adult) (pediatric) (3) Cocaine use disorder: Status: Acute Code(s): F14.90 - Cocaine use, unspecified, uncomplicated (4) Percocet use disorder, moderate, in early remission: Status: Acute Code(s): F11.21 - Opioid dependence, in remission Plan HPI: Patient is a 45-year-old male with history of chronic, untreated psychotic symptoms, cocaine, opiates and alcohol abuse disorder (sober for 1 month) who presents for worsening AH SI in the context of untreated psychotic symptoms. Patient reports that since his 20s, he has had auditory hallucinations; initially they were not that bothersome but eventually the became negative; by 32 years old he was hearing 2 voices talking about him saying negative, threatening things. Patient has subdued these voices with chronic, severe substance abuse for the past 20 years. He quit drinking 2 years ago but only quit cocaine, Percocet and cannabis 1 month ago. Without substance abuse to mask symptoms, AH has become increasingly worse. Patient says there is a voice in my head...every day..i feel i'm being monitored..it says it will harm me, frame me, harm my , my kids, it says I can't put him in correction so i'm going to frame him... We are going to get him no matter what... I'm so worried, looking at the cameras to make sure my family is safe. Patient is paranoid he is being watched, groups of people following him; he tried to tell himself it was just radiofrequencies but believes it is real. Patient said that AH and paranoid ideations are distracting him from work, relationships and he can not even pay attention when talking to his children. He used to use cannabis gummies which quiet the voices however ran out about a week ago which has only made his symptoms worse. This past week, feeling overwhelmed, persecuted he became homeless and suicidal, about to overdose on pills but thought about his children and so instead reached out for help. Today on the unit, when his left the unit, he gave her a note saying something to the effect that the staff on the unit is out to get him... Patient was open to reality testing and seemed grateful to hear that this is his mind playing tricks on him and very much wanted to start medication. Patient denies history of manic type episodes or behaviors; positive history of trauma. Formulation/clinical reasoning: Patient meets criteria for schizophrenia with ongoing auditory hallucinations and paranoid ideations; patient hears 2 voices talking about him at the same time. Remains paranoid and with AH but responded well to reality testing and very much wants to start medication. Distribution Technician reviewed risks/side effects of antipsychotic medication and patient agreed to start risperidone. -mild hyperlipidemia 10/26: Patient reports persistent auditory hallucinations which he states are not too loud and that Risperdal which he started yesterday reduce the voices by 10%. He usually hears 1 or 2 voices which says negative things but no command to hurt himself or others. Earplugs calms the voices a little bit. He denies anxiety. He denies SI/HI/VH. Continue current treatment regimen. May increase Risperdal to 1.5 mg twice daily on 10/27/2025. 10/27/25: Meet with patient in room. Report very anxious this morning but he does not know why. However, as we discuss, he recognizes holiday is the cause of his anxiety, Report hearing more voices when he is anxious. Report the voices has been slow down with less intense with meds. Report paranoid thoughts as he thinks people trying to get into his house to hurt his family. Per nursing, patient slept for 8 hours, isolated in room, working on word puzzle. Report poor appetite. Compliant with meds. No side effects. Increased Rispedone up to 2mg BID for voices 10/28/25:Meet with patient in assigned room. Patient is using headphone for music as coping skills. Report he feels anxious earlier, took Clonidine which is very helpful for anxiety. Report the voices are mumbling today with less intense. Report feeling someone try to do harm to him and other family members. Report appetite poor but better, sleep good. Patient says reasons for why he declined to see his family was that he missed his daughter and talked to her on the phone but cannot but cannot see her which made him upset. Therefore, patient cancelled all visits in the after. However, he saw a couple family members prior to that. Report that he used to use different drugs alcohol, Percecet, RIGO and THC. 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 Report that he would quit THC and other substances as it cause too much trouble in his life and some MJ kinds affects this mental health as he hears voices while using Sativa. Denies SI/SIB/HI/AVH. Discussed with patient regarding medication change targeting psychosis symptom and possible Prolactin level in a couple of days. Patient is receptive. Plan: CV Q 15 minute checks Start risperidone 1 mg b.i.d. increase up to 2mg BID on 10/27/25 Add risperidone 0.5 mg t.i.d. p.r.n. for AH Clonidine p.r.n: found clonidine helpful for anxiety. Trazodone p.r.n. Patient educated on: diagnosis, medication risk/benefits, substance abuse and therapeutic strategies Informed Consent: understands and further education needed Reason for continued inpatient stay Substantial Risk for: med/psych decompensation Time Spent With Patient Time: Total time managing care of this patient today ____ minutes.
[2025-10-28 19:11] VITALS: BP 141/93
[2025-10-28 19:46] VITALS: BP 141/93; PULSE 118; RESP 16; TEMP 36.9; O2SAT 99
[2025-10-29 08:00] VITALS: BP 133/74; PULSE 100; TEMP 36.4; O2SAT 98
[2025-10-29 19:35] VITALS: BP 133/84; PULSE 104; RESP 16; TEMP 36.7; O2SAT 96
--- NOTE | 2025-10-29 21:11 | P.PNPSI_ITS ---
Subjective Subjective Date of Service: 10/29/25 Reason For Visit: Schizoaffective disorder, alcohol cocaine use diso Subjective Notes: [place] Warning and Conditional Voluntary Healthcare Proxy: No Guardianship: No Medical Problems Affecting Mental Status: No Interim History: Medical record and nursing notes reviewed; case discussed during rounds with team/nursing staff, and met with patient for supportive therapy/psychoeducation, as well as medication management. Met with patient in assigned, reports continued to improve psychotic features. Voices has been quiet down but is still somewhat bother him with paranoid thoughts. Reports anxiety higher than before the encounter. Reports that he always depressed. Denies manic behavior in the past. Reported that he had taken Lexapro from someone else before which was helpful but do not remember dosage. He agreed to start on Lexapro for depression. Also agreed to have risperidone increased for total of 5 mg, and prolactin level in the morning. Continue expressed that he misses his daughter. Encourage groups as he mostly spent time in his room. Slept well but poor appetite Per nursing, patient slept well. Compliant with medication, no side effects. No SI/SIB/VH. Medication Compliance: Yes Side effects from medications: No Attending Groups: No Review of Systems Acute medical concerns: No Medical Review of Systems: unchanged Review of Systems Review of Systems Denies any shortness of breath, chest pain, headaches, dysuria, abdominal pain or discomfort, nausea, vomiting or diarrhea. Denies fever or chills. Mental Status Exam Mental Status Exam Narrative: Appearance: Casually dressed, adequate hygiene and grooming Behavior: Calm and cooperative throughout the interview. Eye contact is appropriate, and there are no signs of psychomotor agitation or retardation Speech: Normal volume and prosody Thought process: Logical and goal-directed Thought content: On treatment Mood: anxious and depressed Affect: Mood-congruent SI: Denies HI: Denies VH/AH: Reports AH and paranoia but improved with meds Delusions: None Insight/judgment: Fair insight and judgment Memory/cog: Alert, oriented x 4. grossly intact to conversational testing Diagnostics Vital Signs (24Hr): Vital Signs - 24 hr 10/29/25 08:00 10/29/25 19:35 Temperature 97.6 F 98.0 F Pulse Rate 100 104 H Respiratory Rate 16 Blood Pressure 133/74 133/84 Pulse Oximetry 98 96 Oxygen Delivery Method Room Air Room Air BMI result Body Mass Index 31.3 Medications Medications Current Medications Acetaminophen (Acetaminophen 325 Mg Tablet) 650 mg PO Q6H PRN PRN Reason: Headache/Pain, Scale 1-10 Al Hydroxide/Mg Hydroxide (Magnesium Hydrox/Alum Hydrox 30 Ml Oral.Susp) 30 ml PO Q6H PRN PRN Reason: Heartburn/Nausea Clonidine HCl (Clonidine Hcl 0.1 Mg Tablet) 0.1 mg PO Q4H PRN; Protocol PRN Reason: moderate anxiety Last Admin: 10/28/25 19:11 Dose: 0.1 mg Escitalopram Oxalate (Escitalopram Oxalate 10 Mg Tablet) 10 mg PO DAILY [facility] Hydroxyzine HCl (Hydroxyzine Hcl 25 Mg Tablet) 25 mg PO Q6H PRN PRN Reason: mild anxiety Magnesium Hydroxide (Milk Of Magnesia 30 Ml Oral.Susp) 30 ml PO DAILY PRN PRN Reason: Constipation Nicotine Polacrilex (Nicotine Polacrilex 2 Mg Gum) 4 mg BUCCAL Q2H PRN PRN Reason: Nicotine Cravings Omeprazole (Omeprazole 20 Mg Capsule.Dr) 20 mg PO DAILY@0630 [facility] Last Admin: 10/29/25 06:31 Dose: 20 mg Risperidone (Risperidone 0.5 Mg Tablet) 0.5 mg PO TID PRN PRN Reason: AH Risperidone (Risperidone 2 Mg Tablet) 2 mg PO BID [facility] Last Admin: 10/29/25 20:53 Dose: 2 mg Risperidone (Risperidone 1 Mg Tablet) 1 mg PO BEDTIME [facility] Last Admin: 10/29/25 20:53 Dose: 1 mg Trazodone HCl (Trazodone Hcl 50 Mg Tablet) 50 mg PO BEDTIME MRX1 PRN PRN Reason: Insomnia Allergies Allergies Allergy/AdvReac Type Severity Reaction Status Date / Time No Known Allergies Allergy Unverified 08/17/20 14:38 Assessment & Plan Assessment & Plan (1) Schizophrenia: Status: Acute Code(s): F20.9 - Schizophrenia, unspecified (2) BRIT (obstructive sleep apnea): Status: Acute Code(s): G47.33 - Obstructive sleep apnea (adult) (pediatric) (3) Cocaine use disorder: Status: Acute Code(s): F14.90 - Cocaine use, unspecified, uncomplicated (4) Percocet use disorder, moderate, in early remission: Status: Acute Code(s): F11.21 - Opioid dependence, in remission Plan HPI: Patient is a 45-year-old male with history of chronic, untreated psychotic symptoms, cocaine, opiates and alcohol abuse disorder (sober for 1 month) who presents for worsening AH SI in the context of untreated psychotic symptoms. Patient reports that since his 20s, he has had auditory hallucinations; initially they were not that bothersome but eventually the became negative; by 32 years old he was hearing 2 voices talking about him saying negative, threatening things. Patient has subdued these voices with chronic, severe substance abuse for the past 20 years. He quit drinking 2 years ago but only quit cocaine, Percocet and cannabis 1 month ago. Without substance abuse to mask symptoms, AH has become increasingly worse. Patient says there is a voice in my head...every day..i feel i'm being monitored..it says it will harm me, frame me, harm my , my kids, it says I can't put him in long term so i'm going to frame him... We are going to get him no matter what... I'm so worried, looking at the cameras to make sure my family is safe. Patient is paranoid he is being watched, groups of people following him; he tried to tell himself it was just radiofrequencies but believes it is real. Patient said that AH and paranoid ideations are distracting him from work, relationships and he can not even pay attention when talking to his children. He used to use cannabis gummies which quiet the voices however ran out about a week ago which has only made his symptoms worse. This past week, feeling overwhelmed, persecuted he became homeless and suicidal, about to overdose on pills but thought about his children and so instead reached out for help. Today on the unit, when his left the unit, he gave her a note saying something to the effect that the staff on the unit is out to get him... Patient was open to reality testing and seemed grateful to hear that this is his mind playing tricks on him and very much w anted to start medication. Patient denies history of manic type episodes or behaviors; positive history of trauma. Formulation/clinical reasoning: Patient meets criteria for schizophrenia with ongoing auditory hallucinations and paranoid ideations; patient hears 2 voices talking about him at the same time. Remains paranoid and with AH but responded well to reality testing and very much wants to start medication. Brim Rounder reviewed risks/side effects of antipsychotic medication and patient agreed to start risperidone. -mild hyperlipidemia 10/26: Patient reports persistent auditory hallucinations which he states are not too loud and that Risperdal which he started yesterday reduce the voices by 10%. He usually hears 1 or 2 voices which says negative things but no command to hurt himself or others. Earplugs calms the voices a little bit. He denies anxiety. He denies SI/HI/VH. Continue current treatment regimen. May increase Risperdal to 1.5 mg twice daily on 10/27/2025. 10/27/25: Meet with patient in room. Report very anxious this morning but he does not know why. However, as we discuss, he recognizes holiday is the cause of his anxiety, Report hearing more voices when he is anxious. Report the voices has been slow down with less intense with meds. Report paranoid thoughts as he thinks people trying to get into his house to hurt his family. Per nursing, patient slept for 8 hours, isolated in room, working on word puzzle. Report poor appetite. Compliant with meds. No side effects. Increased Rispedone up to 2mg BID for voices 10/28/25:Meet with patient in assigned room. Patient is using headphone for music as coping skills. Report he feels anxious earlier, took Clonidine which is very helpful for anxiety. Report the voices are mumbling today with less intense. Report feeling someone try to do harm to him and other family members. Report appetite poor but better, sleep good. Patient says reasons for why he declined to see his family was that he missed his daughter and talked to her on the phone but cannot but cannot see her which made him upset. Therefore, patient cancelled all visits in the after. However, he saw a couple family members prior to that. Report that he used to use different drugs alcohol, Percecet, RIGO and THC. 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 Report that he would quit THC and other substances as it cause too much trouble in his life and some MJ kinds affects this mental health as he hears voices while using Sativa. Denies SI/SIB/HI/AVH. Discussed with patient regarding medication change targeting psychosis symptom and possible Prolactin level in a couple of days. Patient is receptive. 10/29/25: Met with patient in assigned, reports continued to improve psychotic features. Voices has been quiet down but is still somewhat bother him with paranoid thoughts. Reports anxiety higher than before the encounter. Reports that he always depressed. Denies manic behavior in the past. Reported that he had taken Lexapro from someone else before which was helpful but do not remember dosage. He agreed to start on Lexapro for depression. Also agreed to have risperidone increased for total of 5 mg, and prolactin level in the morning. Continue expressed that he misses his daughter. Encourage groups as he mostly spent time in his room. Slept well but poor appetite Per nursing, patient slept well. Compliant with medication, no side effects. No SI/SIB/VH. Lexapro 5 mg x 1. Will start tomorrow 10mg for depression/anxiety. Monitor for manic behavior. Reports he takes it before. No manic episode. Due to the depression/anxiety that contributes to the voices. Risperidone total of 5 mg in divided dose. Prolactin level. Plan: CV Q 15 minute checks Start risperidone 1 mg b.i.d. increase up to 2mg BID on 10/27/25. Increased up to 5mg on 10/29/25. Add risperidone 0.5 mg t.i.d. p.r.n. for AH Clonidine p.r.n: found clonidine helpful for anxiety. Start on Lexapro for anxiety/depression. Monitor for manic behavior. Trazodone p.r.n. Patient educated on: diagnosis, medication risk/benefits, substance abuse and therapeutic strategies Informed Consent: understands and further education needed Reason for continued inpatient stay Substantial Risk for: med/psych decompensation Time Spent With Patient Time: Total time managing care of this patient today ____ minutes.
[2025-10-30 08:00] VITALS: BP 134/85; PULSE 86; TEMP 37; O2SAT 97
[2025-10-30 14:00] VITALS: BP 166/100
[2025-10-30 15:30] VITALS: BP 123/76
[2025-10-30 19:54] VITALS: BP 148/96; PULSE 89; RESP 15; TEMP 36.8; O2SAT 97
--- NOTE | 2025-10-30 21:33 | HO.PSYCHPN ---
Subjective Subjective Date of Service: 10/30/25 Reason For Visit: Schizoaffective disorder, alcohol cocaine use diso Subjective Notes: Conditional Voluntary Healthcare Proxy: No Guardianship: No Medical Problems Affecting Mental Status: No Interim History: Medical record and nursing notes reviewed; case discussed during rounds with team/nursing staff, and met with patient for supportive therapy/psychoeducation, as well as medication management. Meet with patient in exam room, report that he was not out but social with roommate. Report anxiety but Clonidine is helpful and depressed d/t missing my family .Denies AH for the first time not today . He is very happy with current regimens and find the combination are working. No manic behaviors since started Lexapro. Prolactin level pending. comes in to visit around 1830. Encourage groups. Discussed with patient regarding scheduled Clonidine BID for anxiety as he has been taking. Patient is receptive. Denies SI/SIB/HI/AVH. Per nursing, patient slepf for 7 hours, compliant with meds, no side effects. Pleasant and cooperative, isolated to self in room. Medication Compliance: Yes Side effects from medications: No Attending Groups: No Review of Systems Acute medical concerns: No Medical Review of Systems: unchanged Review of Systems Review of Systems Denies any shortness of breath, chest pain, headaches, dysuria, abdominal pain or discomfort, nausea, vomiting or diarrhea. Denies fever or chills. Mental Status Exam Mental Status Exam Narrative: Appearance: Casually dressed, adequate hygiene and grooming Behavior: Calm and cooperative throughout the interview. Eye contact is appropriate, and there are no signs of psychomotor agitation or retardation Speech: Normal volume and prosody Thought process: Logical and goal-directed Thought content: On treatment Mood: anxious and depressed but improved Affect: Mood-congruent SI: Denies HI: Denies VH/AH: Denies Delusions: None Insight/judgment: Fair insight and judgment Memory/cog: Alert, oriented x 4. grossly intact to conversational testing Diagnostics Vital Signs (24Hr): Vital Signs - 24 hr 10/30/25 08:00 10/30/25 14:00 10/30/25 15:30 Temperature 98.6 F Pulse Rate 86 Respiratory Rate Blood Pressure 134/85 166/100 H 123/76 Pulse Oximetry 97 Oxygen Delivery Method Room Air 10/30/25 19:54 Temperature 98.2 F Pulse Rate 89 Respiratory Rate 15 Blood Pressure 148/96 H Pulse Oximetry 97 Oxygen Delivery Method BMI result Body Mass Index 31.3 Labs 10/31/25 13:51 Medications Medications Current Medications Acetaminophen (Acetaminophen 325 Mg Tablet) 650 mg PO Q6H PRN PRN Reason: Headache/Pain, Scale 1-10 Al Hydroxide/Mg Hydroxide (Magnesium Hydrox/Alum Hydrox 30 Ml Oral.Susp) 30 ml PO Q6H PRN PRN Reason: Heartburn/Nausea Clonidine HCl (Clonidine Hcl 0.1 Mg Tablet) 0.1 mg PO Q4H PRN; Protocol PRN Reason: moderate anxiety Last Admin: 10/30/25 20:23 Dose: 0.1 mg Escitalopram Oxalate (Escitalopram Oxalate 10 Mg Tablet) 10 mg PO DAILY [facility] Last Admin: 10/30/25 08:51 Dose: 10 mg Hydroxyzine HCl (Hydroxyzine Hcl 25 Mg Tablet) 25 mg PO Q6H PRN PRN Reason: mild anxiety Magnesium Hydroxide (Milk Of Magnesia 30 Ml Oral.Susp) 30 ml PO DAILY PRN PRN Reason: Constipation Nicotine Polacrilex (Nicotine Polacrilex 2 Mg Gum) 4 mg BUCCAL Q2H PRN PRN Reason: Nicotine Cravings Omeprazole (Omeprazole 20 Mg Capsule.Dr) 20 mg PO DAILY@0630 [facility] Last Admin: 10/30/25 06:33 Dose: 20 mg Risperidone (Risperidone 0.5 Mg Tablet) 0.5 mg PO TID PRN PRN Reason: AH Risperidone (Risperidone 2 Mg Tablet) 2 mg PO BID [facility] Last Admin: 10/30/25 20:24 Dose: 2 mg Risperidone (Risperidone 1 Mg Tablet) 1 mg PO BEDTIME [facility] Last Admin: 10/30/25 20:24 Dose: 1 mg Trazodone HCl (Trazodone Hcl 50 Mg Tablet) 50 mg PO BEDTIME MRX1 PRN PRN Reason: Insomnia Allergies Allergies Allergy/AdvReac Type Severity Reaction Status Date / Time No Known Allergies Allergy Unverified 08/17/20 14:38 Assessment & Plan Assessment & Plan (1) Schizophrenia: Status: Acute Code(s): F20.9 - Schizophrenia, unspecified (2) BRIT (obstructive sleep apnea): Status: Acute Code(s): G47.33 - Obstructive sleep apnea (adult) (pediatric) (3) Cocaine use disorder: Status: Acute Code(s): F14.90 - Cocaine use, unspecified, uncomplicated (4) Percocet use disorder, moderate, in early remission: Status: Acute Code(s): F11.21 - Opioid dependence, in remission Plan HPI: Patient is a 45-year-old male with history of chronic, untreated psychotic symptoms, cocaine, opiates and alcohol abuse disorder (sober for 1 month) who presents for worsening AH SI in the context of untreated psychotic symptoms. Patient reports that since his 20s, he has had auditory hallucinations; initially they were not that bothersome but eventually the became negative; by 32 years old he was hearing 2 voices talking about him saying negative, threatening things. Patient has subdued these voices with chronic, severe substance abuse for the past 20 years. He quit drinking 2 years ago but only quit cocaine, Percocet and cannabis 1 month ago. Without substance abuse to mask symptoms, AH has become increasingly worse. Patient says there is a voice in my head...every day..i feel i'm being monitored..it says it will harm me, frame me, harm my , my kids, it says I can't put him in prison so i'm going to frame him... We are going to get him no matter what... I'm so worried, looking at the cameras to make sure my family is safe. Patient is paranoid he is being watched, groups of people following him; he tried to tell himself it was just radiofrequencies but believes it is real. Patient said that AH and paranoid ideations are distracting him from work, relationships and he can not even pay attention when talking to his children. He used to use cannabis gummies which quiet the voices however ran out about a week ago which has only made his symptoms worse. This past week, feeling overwhelmed, persecuted he became homeless and suicidal, about to overdose on pills but thought about his children and so instead reached out for help. Today on the unit, when his left the unit, he gave her a note saying something to the effect that the staff on the unit is out to get him... Patient was open to reality testing and seemed grateful to hear that this is his mind playing tricks on him and very much wanted to start medication. Patient denies history of manic type episodes or behaviors; positive history of trauma. Formulation/clinical reasoning: Patient meets criteria for schizophrenia with ongoing auditory hallucinations and paranoid ideations; patient hears 2 voices talking about him at the same time. Remains paranoid and with AH but responded well to reality testing and very much wants to start medication. [employer] Technician reviewed risks/side effects of antipsychotic medication and patient agreed to start risperidone. -mild hyperlipidemia 10/26: Patient reports persistent auditory hallucinations which he states are not too loud and that Risperdal which he started yesterday reduce the voices by 10%. He usually hears 1 or 2 voices which says negative things but no command to hurt himself or others. Earplugs calms the voices a little bit. He denies anxiety. He denies SI/HI/VH. Continue current treatment regimen. May increase Risperdal to 1.5 mg twice daily on 10/27/2025. 10/27/25: Meet with patient in room. Report very anxious this morning but he does not know why. However, as we discuss, he recognizes holiday is the cause of his anxiety, Report hearing more voices when he is anxious. Report the voices has been slow down with less intense with meds. Report paranoid thoughts as he thinks people trying to get into his house to hurt his family. Per nursing, patient slept for 8 hours, isolated in room, working on word puzzle. Report poor appetite. Compliant with meds. No side effects. Increased Rispedone up to 2mg BID for voices 10/28/25:Meet with patient in assigned room. Patient is using headphone for music as coping skills. Report he feels anxious earlier, took Clonidine which is very helpful for anxiety. Report the voices are mumbling today with less intense. Report feeling someone try to do harm to him and other family members. Report appetite poor but better, sleep good. Patient says reasons for why he declined to see his family was that he missed his daughter and talked to her on the phone but cannot but cannot see her which made him upset. Therefore, patient cancelled all visits in the after. However, he saw a couple family members prior to that. Report that he used to use different drugs alcohol, Percecet, RIGO and THC. 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 Report that he would quit THC and other substances as it cause too much trouble in his life and some MJ kinds affects this mental health as he hears voices while using Sativa. Denies SI/SIB/HI/AVH. Discussed with patient regarding medication change targeting psychosis symptom and possible Prolactin level in a couple of days. Patient is receptive. 10/29/25: Met with patient in assigned, reports continued to improve psychotic features. Voices has been quiet down but is still somewhat bother him with paranoid thoughts. Reports anxiety higher than before the encounter. Reports that he always depressed. Denies manic behavior in the past. Reported that he had taken Lexapro from someone else before which was helpful but do not remember dosage. He agreed to start on Lexapro for depression. Also agreed to have risperidone increased for total of 5 mg, and prolactin level in the morning. Continue expressed that he misses his daughter. Encourage groups as he mostly spent time in his room. Slept well but poor appetite Per nursing, patient slept well. Compliant with medication, no side effects. No SI/SIB/VH. Lexapro 5 mg x 1. Will start tomorrow 10mg for depression/anxiety. Monitor for manic behavior. Reports he takes it before. No manic episode. Due to the depression/anxiety that contributes to the voices. Risperidone total of 5 mg in divided dose. Prolactin level. 10/30/25: Meet with patient in exam room, report that he was not out but social with roommate. Report anxiety but Clonidine is helpful and depressed d/t missing my family .Denies AH for the first time not today . He is very happy with current regimens and find the combination are working. No manic behaviors since started Lexapro. Prolactin level pending. comes in to visit around 1830. Encourage groups. Discussed with patient regarding scheduled Clonidine BID for anxiety as he has been taking. Patient is receptive. Denies SI/SIB/HI/AVH. Per nursing, patient slept for 7 hours, compliant with meds, no side effects. Pleasant and cooperative, isolated to self in room. Plan: CV Q 15 minute checks Start risperidone 1 mg b.i.d. increase up to 2mg BID on 10/27/25. Increased up to 5mg on 10/29/25. Add risperidone 0.5 mg t.i.d. p.r.n. for AH Clonidine p.r.n: found clonidine helpful for anxiety. Start on Lexapro for anxiety/depression. Monitor for manic behavior. Trazodone p.r.n. Patient educated on: diagnosis, medication risk/benefits, substance abuse and therapeutic strategies Reason for continued inpatient stay Substantial Risk for: med/psych decompensation Time Spent With Patient Time: Total time managing care of this patient today ____ minutes.
[2025-10-31 08:00] VITALS: BP 135/82; PULSE 105; RESP 19; TEMP 37; O2SAT 97
--- NOTE | 2025-10-31 09:41 | P.PNPSI_ITS ---
Subjective Subjective Date of Service: 10/31/25 Reason For Visit: Schizoaffective disorder, alcohol cocaine use diso Interim History: met with pt; discussed with team; reviewed chart pt says doing well and that AH much less and able to dismiss it pretty easily; says still hears some derogatory comments but mostly it's just mumbling. Discussed past paranoid delusions and pt denies any delusions, saying he does not believe any of it anymore. Pt does not want to increase dose at this time. He struggles with some anxiety but finds clonidine helpful for it. Pt asking for discharge, saying misses his kids and and looking forward to going home. Diagnostics Vital Signs (24Hr): Vital Signs - 24 hr 10/30/25 14:00 10/30/25 15:30 10/30/25 19:54 Temperature 98.2 F Pulse Rate 89 Respiratory Rate 15 Blood Pressure 166/100 H 123/76 148/96 H Pulse Oximetry 97 Oxygen Delivery Method 10/31/25 08:00 Temperature 98.6 F Pulse Rate 105 H Respiratory Rate 19 Blood Pressure 135/82 Pulse Oximetry 97 Oxygen Delivery Method Room Air BMI result Body Mass Index 31.3 Labs 10/31/25 13:51 Medications Medications Current Medications Acetaminophen (Acetaminophen 325 Mg Tablet) 650 mg PO Q6H PRN PRN Reason: Headache/Pain, Scale 1-10 Al Hydroxide/Mg Hydroxide (Magnesium Hydrox/Alum Hydrox 30 Ml Oral.Susp) 30 ml PO Q6H PRN PRN Reason: Heartburn/Nausea Clonidine HCl (Clonidine Hcl 0.1 Mg Tablet) 0.1 mg PO Q4H PRN; Protocol PRN Reason: moderate anxiety Last Admin: 10/30/25 20:23 Dose: 0.1 mg Clonidine HCl (Clonidine Hcl 0.1 Mg Tablet) 0.1 mg PO BID [facility]; Protocol Last Admin: 10/31/25 08:48 Dose: 0.1 mg Escitalopram Oxalate (Escitalopram Oxalate 10 Mg Tablet) 10 mg PO DAILY [facility] Last Admin: 10/31/25 08:48 Dose: 10 mg Hydroxyzine HCl (Hydroxyzine Hcl 25 Mg Tablet) 25 mg PO Q6H PRN PRN Reason: mild anxiety Magnesium Hydroxide (Milk Of Magnesia 30 Ml Oral.Susp) 30 ml PO DAILY PRN PRN Reason: Constipation Nicotine Polacrilex (Nicotine Polacrilex 2 Mg Gum) 4 mg BUCCAL Q2H PRN PRN Reason: Nicotine Cravings Omeprazole (Omeprazole 20 Mg Capsule.Dr) 20 mg PO DAILY@0630 [facility] Last Admin: 10/31/25 06:42 Dose: 20 mg Risperidone (Risperidone 0.5 Mg Tablet) 0.5 mg PO TID PRN PRN Reason: AH Risperidone (Risperidone 2 Mg Tablet) 2 mg PO BID [facility] Last Admin: 10/31/25 08:48 Dose: 2 mg Risperidone (Risperidone 1 Mg Tablet) 1 mg PO BEDTIME [facility] Last Admin: 10/30/25 20:24 Dose: 1 mg Trazodone HCl (Trazodone Hcl 50 Mg Tablet) 50 mg PO BEDTIME MRX1 PRN PRN Reason: Insomnia Allergies Allergies Allergy/AdvReac Type Severity Reaction Status Date / Time No Known Allergies Allergy Unverified 08/17/20 14:38 Assessment & Plan Assessment & Plan (1) Schizophrenia: Status: Acute Code(s): F20.9 - Schizophrenia, unspecified (2) BRIT (obstructive sleep apnea): Status: Acute Code(s): G47.33 - Obstructive sleep apnea (adult) (pediatric) (3) Cocaine use disorder: Status: Acute Code(s): F14.90 - Cocaine use, unspecified, uncomplicated (4) Percocet use disorder, moderate, in early remission: Status: Acute Code(s): F11.21 - Opioid dependence, in remission Plan HPI: Patient is a 45-year-old male with history of chronic, untreated psychotic symptoms, cocaine, opiates and alcohol abuse disorder (sober for 1 month) who presents for worsening AH SI in the context of untreated psychotic symptoms. Patient reports that since his 20s, he has had auditory hallucinations; initially they were not that bothersome but eventually the became negative; by 32 years old he was hearing 2 voices talking about him saying negative, threatening things. Patient has subdued these voices with chronic, severe substance abuse for the past 20 years. He quit drinking 2 years ago but only quit cocaine, Percocet and cannabis 1 month ago. Without substance abuse to mask symptoms, AH has become increasingly worse. Patient says there is a voice in my head...every day..i feel i'm being monitored..it says it will harm me, frame me, harm my , my kids, it says I can't put him in nursing home so i'm going to frame him... We are going to get him no matter what... I'm so worried, looking at the cameras to make sure my family is safe. Patient is paranoid he is being watched, groups of people following him; he tried to tell himself it was just radiofrequencies but believes it is real. Patient said that AH and paranoid ideations are distracting him from work, relationships and he can not even pay attention when talking to his children. He used to use cannabis gummies which quiet the voices however ran out about a week ago which has only made his symptoms worse. This past week, feeling overwhelmed, persecuted he became homeless and suicidal, about to overdose on pills but thought about his children and so instead reached out for help. Today on the unit, when his left the unit, he gave her a note saying something to the effect that the staff on the unit is out to get him... Patient was open to reality testing and seemed grateful to hear that this is his mind playing tricks on him and very much wanted to start medication. Patient denies history of manic type episodes or behaviors; positive history of trauma. Formulation/clinical reasoning: Patient meets criteria for schizophrenia with ongoing auditory hallucinations and paranoid ideations; patient hears 2 voices talking about him at the same time. Remains paranoid and with AH but responded well to reality testing and very much wants to start medication. Newspaper Publisher reviewed risks/side effects of antipsychotic medication and patient agreed to start risperidone. -mild hyperlipidemia 10/26: Patient reports persistent auditory hallucinations which he states are not too loud and that Risperdal which he started yesterday reduce the voices by 10%. He usually hears 1 or 2 voices which says negative things but no command to hurt himself or others. Earplugs calms the voices a little bit. He denies anxiety. He denies SI/HI/VH. Continue current treatment regimen. May increase Risperdal to 1.5 mg twice daily on 10/27/2025. 10/27/25: Meet with patient in room. Report very anxious this morning but he does not know why. However, as we discuss, he recognizes holiday is the cause of his anxiety, Report hearing more voices when he is anxious. Report the voices has been slow down with less intense with meds. Report paranoid thoughts as he thinks people trying to get into his house to hurt his family. Per nursing, patient slept for 8 hours, isolated in room, working on word puzzle. Report poor appetite. Compliant with meds. No side effects. Increased Rispedone up to 2mg BID for voices 10/28/25:Meet with patient in assigned room. Patient is using headphone for music as coping skills. Report he feels anxious earlier, took Clonidine which is very helpful for anxiety. Report the voices are mumbling today with less intense. Report feeling someone try to do harm to him and other family members. Report appetite poor but better, sleep good. Patient says reasons for why he declined to see his family was that he missed his daughter and talked to her on the phone but cannot but cannot see her which made him upset. Therefore, patient cancelled all visits in the after. However, he saw a couple family members prior to that. Report that he used to use different drugs alcohol, Percecet, RIGO and THC. 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 Report that he would quit THC and other substances as it cause too much trouble in his life and some MJ kinds affects this mental health as he hears voices while using Sativa. Denies SI/SIB/HI/AVH. Discussed with patient regarding medication change targeting psychosis symptom and possible Prolactin level in a couple of days. Patient is receptive. 10/29/25: Met with patient in assigned, reports continued to improve psychotic features. Voices has been quiet down but is still somewhat bother him with paranoid thoughts. Reports anxiety higher than before the encounter. Reports that he always depressed. Denies manic behavior in the past. Reported that he had taken Lexapro from someone else before which was helpful but do not remember dosage. He agreed to start on Lexapro for depression. Also agreed to have risperidone increased for total of 5 mg, and prolactin level in the morning. Continue expressed that he misses his daughter. Encourage groups as he mostly spent time in his room. Slept well but poor appetite Per nursing, patient slept well. Compliant with medication, no side effects. No SI/SIB/VH. Lexapro 5 mg x 1. Will start tomorrow 10mg for depression/anxiety. Monitor for manic behavior. Reports he takes it before. No manic episode. Due to the depression/anxiety that contributes to the voices. Risperidone total of 5 mg in divided dose. Prolactin level ordered 10/31 pt says doing well and that AH much less and able to dismiss it pretty easily; says still hears some derogatory comments but mostly it's just mumbling. Discussed past paranoid delusions and pt denies any delusions, saying he does not believe any of it anymore. Pt does not want to increase dose at this time. He struggles with some anxiety but finds clonidine helpful for it. Pt asking for discharge, saying misses his kids and and looking forward to going home. Agrees to swithc risperdal to bedtime for once a day dosing impression: pt doing much better with good insight; AH much improved and not bothersome. Pt is not in imminent risk of harm to self or others and appropriate to return to the community for tx Plan: CV Q 15 minute checks Start risperidone 1 mg b.i.d. increase up to 2mg BID on 10/27/25. Increased up to 5mg on 10/29/25. Add risperidone 0.5 mg t.i.d. p.r.n. for AH Clonidine p.r.n: found clonidine helpful for anxiety. Start on Lexapro for anxiety/depression. Monitor for manic behavior. Trazodone p.r.n. Patient educated on: diagnosis, medication risk/benefits, substance abuse and therapeutic strategies Informed Consent: understands Reason for continued inpatient stay Substantial Risk for: stable for discharge Time Spent With Patient Time: Total time managing care of this patient today ____ minutes.
[2025-10-31 14:13] LABS: Creatinine Clr Calc Pharmacy 95.9; Estimated Glomerular Filt Rate > 60
[2025-10-31 20:00] VITALS: BP 135/89; PULSE 97; RESP 18; TEMP 37; O2SAT 96
[2025-10-31 21:31] VITALS: BP 135/84
[2025-11-01 01:46] VITALS: RESP 14
[2025-11-01 08:00] VITALS: BP 168/99; PULSE 89; RESP 18; TEMP 36.4; O2SAT 98
--- NOTE | 2025-11-01 08:55 | HO.PM.IMPN ---
Subjective Subjective Date of Service: 11/01/25 Interval History: Patient seen for persistent elevated blood pressures. He reports that his blood pressure is elevated in the morning due to high levels of anxiety, reviewed blood pressures. Noted to be 120s over 130s/80s. Patient was not on any medication for blood pressure. He denies any shortness of breath, dizziness, lightheadedness, headaches, chest pain, palpitations or any other concerning symptoms. He feels well, plan to discharge today. Review of Systems Patient has no acute medical complaints at this time All other systems are reviewed and are negative Physical Exam Exam: Exam: Alert and oriented X3, calm and cooperative. Answers questions. Neuro: CN II-X11 intact, no deficits, visual acuity intact Cardiac: S1 S2 RRR, No ectopy Pulmonary: lungs clear to auscultation, No increased WOB. Abdominal: BS active in all 4 quadrants, no guarding or tenderness MSK: Strength 5/5 upper and lower extremities : Deferred Extremities: No edema in lower extremities Psych: Mood stable, Quiet and cooperative. Happy to be discharged home today. Skin: Warm and dry, Intact Vital Signs: Vital Signs: Last Vital Signs Temp 97.5 F 11/01/25 08:00 Pulse 89 11/01/25 08:00 Resp 18 11/01/25 08:00 BP 168/99 H 11/01/25 08:00 Pulse Ox 98 11/01/25 08:00 O2 Del Method Room Air 11/01/25 08:00 BMI result Body Mass Index 31.3 Objective Data Active Medications Acetaminophen (Acetaminophen 325 Mg Tablet) 650 mg PO Q6H PRN PRN Reason: Headache/Pain, Scale 1-10 Al Hydroxide/Mg Hydroxide (Magnesium Hydrox/Alum Hydrox 30 Ml Oral.Susp) 30 ml PO Q6H PRN PRN Reason: Heartburn/Nausea Clonidine HCl (Clonidine Hcl 0.1 Mg Tablet) 0.1 mg PO Q4H PRN; Protocol PRN Reason: moderate anxiety Last Admin: 10/30/25 20:23 Dose: 0.1 mg Documented By: BRIDGET Clonidine HCl (Clonidine Hcl 0.1 Mg Tablet) 0.1 mg PO BID COUNTS INCLUDE 234 BEDS AT THE [facility]; Protocol Last Admin: 11/01/25 08:45 Dose: 0.1 mg Documented By: ISELA Escitalopram Oxalate (Escitalopram Oxalate 10 Mg Tablet) 10 mg PO DAILY COUNTS INCLUDE 234 BEDS AT THE [facility] Last Admin: 11/01/25 08:45 Dose: 10 mg Documented By: ISELA Hydroxyzine HCl (Hydroxyzine Hcl 25 Mg Tablet) 25 mg PO Q6H PRN PRN Reason: mild anxiety Magnesium Hydroxide (Milk Of Magnesia 30 Ml Oral.Susp) 30 ml PO DAILY PRN PRN Reason: Constipation Nicotine Polacrilex (Nicotine Polacrilex 2 Mg Gum) 4 mg BUCCAL Q2H PRN PRN Reason: Nicotine Cravings Omeprazole (Omeprazole 20 Mg Capsule.) 20 mg PO DAILY@0630 COUNTS INCLUDE 234 BEDS AT THE [facility] Last Admin: 11/01/25 07:11 Dose: 20 mg Documented By: GAMA Risperidone (Risperidone 0.5 Mg Tablet) 0.5 mg PO TID PRN PRN Reason: AH Risperidone (Risperidone 1 Mg Tablet) 5 mg PO BEDTIME COUNTS INCLUDE 234 BEDS AT THE [facility] Trazodone HCl (Trazodone Hcl 50 Mg Tablet) 50 mg PO BEDTIME MRX1 PRN PRN Reason: Insomnia Labs 10/31/25 13:51 Labs: Laboratory Results - last 24 hr 10/30/25 10/31/25 08:24 13:51 Estim Creat Clear Calc 95.9 Estimated GFR > 60 Prolactin 30.0 H Assessment and Plan (1) Elevated blood pressure reading: Status: Acute Plan 45-year-old male with a past medical history listed below presented to the emergency department with auditory hallucinations and suicide ideation. Admitted for inpatient stabilization. Schizoaffective disorder/alcohol use disorder/cocaine use disorder/suicidal ideation Treatment per psychiatric team Elevated blood pressure readings without diagnosis of hypertension Advised patient to follow up with his primary care doctor BRIT Home CPAP GERD Continue omeprazole Subclinical hypothyroidism TSH 2.10 and free T4 0.85 Continue to periodically monitor every 3 months Thank you for allowing me to participate in the care of this patient. Quality Stroke Does the patient have a stroke diagnosis?: No VTE Prior VTE?: No VTE Risk Level:: Medical - low VTE Device Contraindication: Treatment Not Indicated VTE Drug Contraindication: Treatment Not Indicated
--- NOTE | 2025-11-01 10:27 | HO.PSYCHPN ---
Subjective Subjective Date of Service: 11/01/25 Reason For Visit: Schizoaffective disorder, alcohol cocaine use diso Interim History: recheck prolactin in 3?6 months Diagnostics Vital Signs (24Hr): Vital Signs - 24 hr 10/31/25 20:00 10/31/25 21:31 11/01/25 01:46 Temperature 98.6 F Pulse Rate 97 Respiratory Rate 18 14 Blood Pressure 135/89 135/84 Pulse Oximetry 96 Oxygen Delivery Method Room Air 11/01/25 08:00 Temperature 97.5 F Pulse Rate 89 Respiratory Rate 18 Blood Pressure 168/99 H Pulse Oximetry 98 Oxygen Delivery Method Room Air BMI result Body Mass Index 31.3 Labs 10/31/25 13:51 Labs: Laboratory Results - last 48 hr 10/30/25 10/31/25 08:24 13:51 Creatinine 1.10 Estim Creat Clear Calc 95.9 Estimated GFR > 60 Prolactin 30.0 H Medications Medications Current Medications Acetaminophen (Acetaminophen 325 Mg Tablet) 650 mg PO Q6H PRN PRN Reason: Headache/Pain, Scale 1-10 Al Hydroxide/Mg Hydroxide (Magnesium Hydrox/Alum Hydrox 30 Ml Oral.Susp) 30 ml PO Q6H PRN PRN Reason: Heartburn/Nausea Clonidine HCl (Clonidine Hcl 0.1 Mg Tablet) 0.1 mg PO Q4H PRN; Protocol PRN Reason: moderate anxiety Last Admin: 10/30/25 20:23 Dose: 0.1 mg Clonidine HCl (Clonidine Hcl 0.1 Mg Tablet) 0.1 mg PO BID [facility]; Protocol Last Admin: 11/01/25 08:45 Dose: 0.1 mg Escitalopram Oxalate (Escitalopram Oxalate 10 Mg Tablet) 10 mg PO DAILY [facility] Last Admin: 11/01/25 08:45 Dose: 10 mg Hydroxyzine HCl (Hydroxyzine Hcl 25 Mg Tablet) 25 mg PO Q6H PRN PRN Reason: mild anxiety Magnesium Hydroxide (Milk Of Magnesia 30 Ml Oral.Susp) 30 ml PO DAILY PRN PRN Reason: Constipation Nicotine Polacrilex (Nicotine Polacrilex 2 Mg Gum) 4 mg BUCCAL Q2H PRN PRN Reason: Nicotine Cravings Omeprazole (Omeprazole 20 Mg Capsule.Dr) 20 mg PO DAILY@0630 [facility] Last Admin: 11/01/25 07:11 Dose: 20 mg Risperidone (Risperidone 0.5 Mg Tablet) 0.5 mg PO TID PRN PRN Reason: AH Risperidone (Risperidone 1 Mg Tablet) 5 mg PO BEDTIME [facility] Trazodone HCl (Trazodone Hcl 50 Mg Tablet) 50 mg PO BEDTIME MRX1 PRN PRN Reason: Insomnia Allergies Allergies Allergy/AdvReac Type Severity Reaction Status Date / Time No Known Allergies Allergy Unverified 08/17/20 14:38 Assessment & Plan Assessment & Plan (1) Schizophrenia: Status: Acute Code(s): F20.9 - Schizophrenia, unspecified (2) BRIT (obstructive sleep apnea): Status: Acute Code(s): G47.33 - Obstructive sleep apnea (adult) (pediatric) (3) Cocaine use disorder: Status: Acute Code(s): F14.90 - Cocaine use, unspecified, uncomplicated (4) Percocet use disorder, moderate, in early remission: Status: Acute Code(s): F11.21 - Opioid dependence, in remission Plan HPI: Patient is a 45-year-old male with history of chronic, untreated psychotic symptoms, cocaine, opiates and alcohol abuse disorder (sober for 1 month) who presents for worsening AH SI in the context of untreated psychotic symptoms. Patient reports that since his 20s, he has had auditory hallucinations; initially they were not that bothersome but eventually the became negative; by 32 years old he was hearing 2 voices talking about him saying negative, threatening things. Patient has subdued these voices with chronic, severe substance abuse for the past 20 years. He quit drinking 2 years ago but only quit cocaine, Percocet and cannabis 1 month ago. Without substance abuse to mask symptoms, AH has become increasingly worse. Patient says there is a voice in my head...every day..i feel i'm being monitored..it says it will harm me, frame me, harm my , my kids, it says I can't put him in detention so i'm going to frame him... We are going to get him no matter what... I'm so worried, looking at the cameras to make sure my family is safe. Patient is paranoid he is being watched, groups of people following him; he tried to tell himself it was just radiofrequencies but believes it is real. Patient said that AH and paranoid ideations are distracting him from work, relationships and he can not even pay attention when talking to his children. He used to use cannabis gummies which quiet the voices however ran out about a week ago which has only made his symptoms worse. This past week, feeling overwhelmed, persecuted he became homeless and suicidal, about to overdose on pills but thought about his children and so instead reached out for help. Today on the unit, when his left the unit, he gave her a note saying something to the effect that the staff on the unit is out to get him... Patient was open to reality testing and seemed grateful to hear that this is his mind playing tricks on him and very much wanted to start medication. Patient denies history of manic type episodes or behaviors; positive history of trauma. Formulation/clinical reasoning: Patient meets criteria for schizophrenia with ongoing auditory hallucinations and paranoid ideations; patient hears 2 voices talking about him at the same time. Remains paranoid and with AH but responded well to reality testing and very much wants to start medication. Calciner Feeder reviewed risks/side effects of antipsychotic medication and patient agreed to start risperidone. -mild hyperlipidemia 10/26: Patient reports persistent auditory hallucinations which he states are not too loud and that Risperdal which he started yesterday reduce the voices by 10%. He usually hears 1 or 2 voices which says negative things but no command to hurt himself or others. Earplugs calms the voices a little bit. He denies anxiety. He denies SI/HI/VH. Continue current treatment regimen. May increase Risperdal to 1.5 mg twice daily on 10/27/2025. 10/27/25: Meet with patient in room. Report very anxious this morning but he does not know why. However, as we discuss, he recognizes holiday is the cause of his anxiety, Report hearing more voices when he is anxious. Report the voices has been slow down with less intense with meds. Report paranoid thoughts as he thinks people trying to get into his house to hurt his family. Per nursing, patient slept for 8 hours, isolated in room, working on word puzzle. Report poor appetite. Compliant with meds. No side effects. Increased Rispedone up to 2mg BID for voices 10/28/25:Meet with patient in assigned room. Patient is using headphone for music as coping skills. Report he feels anxious earlier, took Clonidine which is very helpful for anxiety. Report the voices are mumbling today with less intense. Report feeling someone try to do harm to him and other family members. Report appetite poor but better, sleep good. Patient says reasons for why he declined to see his family was that he missed his daughter and talked to her on the phone but cannot but cannot see her which made him upset. Therefore, patient cancelled all visits in the after. However, he saw a couple family members prior to that. Report that he used to use different drugs alcohol, Percecet, RIGO and THC. 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 Report that he would quit THC and other substances as it cause too much trouble in his life and some MJ kinds affects this mental health as he hears voices while using Sativa. Denies SI/SIB/HI/AVH. Discussed with patient regarding medication change targeting psychosis symptom and possible Prolactin level in a couple of days. Patient is receptive. 10/29/25: Met with patient in assigned, reports continued to improve psychotic features. Voices has been quiet down but is still somewhat bother him with paranoid thoughts. Reports anxiety higher than before the encounter. Reports that he always depressed. Denies manic behavior in the past. Reported that he had taken Lexapro from someone else before which was helpful but do not remember dosage. He agreed to start on Lexapro for depression. Also agreed to have risperidone increased for total of 5 mg, and prolactin level in the morning. Continue expressed that he misses his daughter. Encourage groups as he mostly spent time in his room. Slept well but poor appetite Per nursing, patient slept well. Compliant with medication, no side effects. No SI/SIB/VH. Lexapro 5 mg x 1. Will start tomorrow 10mg for depression/anxiety. Monitor for manic behavior. Reports he takes it before. No manic episode. Due to the depression/anxiety that contributes to the voices. Risperidone total of 5 mg in divided dose. Prolactin level. 10/30/25: Meet with patient in exam room, report that he was not out but social with roommate. Report anxiety but Clonidine is helpful and depressed d/t missing my family .Denies AH for the first time not today . He is very happy with current regimens and find the combination are working. No manic behaviors since started Lexapro. Prolactin level pending. comes in to visit around 1830. Encourage groups. Discussed with patient regarding scheduled Clonidine BID for anxiety as he has been taking. Patient is receptive. Denies SI/SIB/HI/AVH. Per nursing, patient slept for 7 hours, compliant with meds, no side effects. Pleasant and cooperative, isolated to self in room. Plan: CV Q 15 minute checks Start risperidone 1 mg b.i.d. increase up to 2mg BID on 10/27/25. Increased up to 5mg on 10/29/25. Add risperidone 0.5 mg t.i.d. p.r.n. for AH Clonidine p.r.n: found clonidine helpful for anxiety. Start on Lexapro for anxiety/depression. Monitor for manic behavior. Trazodone p.r.n. Time Spent With Patient Time: Total time managing care of this patient today ____ minutes.
--- NOTE | 2025-11-01 11:13 | PM.PSYDC ---
DS: Providers Provider Date of Service: 11/01/25 Date of admission: 10/24/25 16:17 Date of discharge: 11/01/25 Primary care physician: None Physician Consults: 10/24/25 17:03 Consult to Hospitalist Routine Comment: Consulting Provider: [facility] Hospitalists Reason For Exam: Admission Physical DS: Diagnosis Discharge Diagnosis (1) Schizophrenia: Status: Acute (2) BRIT (obstructive sleep apnea): Status: Acute (3) Cocaine use disorder: Status: Acute (4) Percocet use disorder, moderate, in early remission: Status: Acute DS: Medications Discharge Medications Home Medications: Home Medications ?Medication ?Instructions ?Recorded ?Confirmed pantoprazole 40 mg tablet,delayed 40 mg PO DAILY 10/24/25 10/24/25 release Previous Rx's ?Medication ?Instructions ?Recorded clonidine HCl 0.1 mg tablet See Rx Instructions .Route 11/01/25 .COMPLEX 30 days #90 tabs escitalopram oxalate 10 mg tablet 10 mg PO DAILY 30 days #30 tabs 11/01/25 risperidone 1 mg tablet 1 mg PO BEDTIME 30 days #30 tabs 11/01/25 risperidone 4 mg tablet 4 mg PO BEDTIME 30 days #30 tabs 11/01/25 Mental Status Exam Mental Status Exam Narrative: Pt is alert and oriented; behavior is cooperative, friendly and calm; patient is not in distress; dressed in casual attire well groomed; mood is described as good and affect congruent; eye contact appropriate; Speech is normal rate, volume and prosody and not pressured; no psychomotor agitation/retardation present; thought process is organized and goal directed; Thought content is on tx; otherwise pertinent to relevant topics and without any delusional content, paranoid ideations or grandiosity; denies any SI/HI. Denies AVH and there is no evidence of perceptual disturbance. Patients insight and judgment appear intact. Data Data Completed and Pending Completed studies during hospitalization [Text1]: 10/30/25 10/31/25 08:24 13:51 Creatinine 1.10 Estim Creat Clear Calc 95.9 Estimated GFR > 60 Prolactin 30.0 H DS: Summary Hospital Course Hospital Course: HPI: Patient is a 45-year-old male with history of chronic, untreated psychotic symptoms, cocaine, opiates and alcohol abuse disorder (sober for 1 month) who presents for worsening AH SI in the context of untreated psychotic symptoms. Patient reports that since his 20s, he has had auditory hallucinations; initially they were not that bothersome but eventually the became negative; by 32 years old he was hearing 2 voices talking about him saying negative, threatening things. Patient has subdued these voices with chronic, severe substance abuse for the past 20 years. He quit drinking 2 years ago but only quit cocaine, Percocet and cannabis 1 month ago. Without substance abuse to mask symptoms, AH has become increasingly worse. Patient says there is a voice in my head...every day..i feel i'm being monitored..it says it will harm me, frame me, harm my , my kids, it says I can't put him in penitentiary so i'm going to frame him... We are going to get him no matter what... I'm so worried, looking at the cameras to make sure my family is safe. Patient is paranoid he is being watched, groups of people following him; he tried to tell himself it was just radiofrequencies but believes it is real. Patient said that AH and paranoid ideations are distracting him from work, relationships and he can not even pay attention when talking to his children. He used to use cannabis gummies which quiet the voices however ran out about a week ago which has only made his symptoms worse. This past week, feeling overwhelmed, persecuted he became homeless and suicidal, about to overdose on pills but thought about his children and so instead reached out for help. Today on the unit, when his left the unit, he gave her a note saying something to the effect that the staff on the unit is out to get him... Patient was open to reality testing and seemed grateful to hear that this is his mind playing tricks on him and very much wanted to start medication. Patient denies history of manic type episodes or behaviors; positive history of trauma. Formulation/clinical reasoning: Patient meets criteria for schizophrenia with ongoing auditory hallucinations and paranoid ideations; patient hears 2 voices talking about him at the same time. Remains paranoid and with AH but responded well to reality testing and very much wants to start medication. Second Steward reviewed risks/side effects of antipsychotic medication and patient agreed to start risperidone. -mild hyperlipidemia 10/26: Patient reports persistent auditory hallucinations which he states are not too loud and that Risperdal which he started yesterday reduce the voices by 10%. He usually hears 1 or 2 voices which says negative things but no command to hurt himself or others. Earplugs calms the voices a little bit. He denies anxiety. He denies SI/HI/VH. Continue current treatment regimen. May increase Risperdal to 1.5 mg twice daily on 10/27/2025. 10/27/25: Meet with patient in room. Report very anxious this morning but he does not know why. However, as we discuss, he recognizes holiday is the cause of his anxiety, Report hearing more voices when he is anxious. Report the voices has been slow down with less intense with meds. Report paranoid thoughts as he thinks people trying to get into his house to hurt his family. Per nursing, patient slept for 8 hours, isolated in room, working on word puzzle. Report poor appetite. Compliant with meds. No side effects. Increased Rispedone up to 2mg BID for voices 10/28/25:Meet with patient in assigned room. Patient is using headphone for music as coping skills. Report he feels anxious earlier, took Clonidine which is very helpful for anxiety. Report the voices are mumbling today with less intense. Report feeling someone try to do harm to him and other family members. Report appetite poor but better, sleep good. Patient says reasons for why he declined to see his family was that he missed his daughter and talked to her on the phone but cannot but cannot see her which made him upset. Therefore, patient cancelled all visits in the after. However, he saw a couple family members prior to that. Report that he used to use different drugs alcohol, Percecet, RIGO and THC. 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 Report that he would quit THC and other substances as it cause too much trouble in his life and some MJ kinds affects this mental health as he hears voices while using Sativa. Denies SI/SIB/HI/AVH. Discussed with patient regarding medication change targeting psychosis symptom and possible Prolactin level in a couple of days. Patient is receptive. 10/29/25: Met with patient in assigned, reports continued to improve psychotic features. Voices has been quiet down but is still somewhat bother him with paranoid thoughts. Reports anxiety higher than before the encounter. Reports that he always depressed. Denies manic behavior in the past. Reported that he had taken Lexapro from someone else before which was helpful but do not remember dosage. He agreed to start on Lexapro for depression. Also agreed to have risperidone increased for total of 5 mg, and prolactin level in the morning. Continue expressed that he misses his daughter. Encourage groups as he mostly spent time in his room. Slept well but poor appetite Per nursing, patient slept well. Compliant with medication, no side effects. No SI/SIB/VH. Lexapro 5 mg x 1. Will start tomorrow 10mg for depression/anxiety. Monitor for manic behavior. Reports he takes it before. No manic episode. Due to the depression/anxiety that contributes to the voices. Risperidone total of 5 mg in divided dose. Prolactin level ordered 10/31 pt says doing well and that AH much less and able to dismiss it pretty easily; says still hears some derogatory comments but mostly it's just mumbling. Discussed past paranoid delusions and pt denies any delusions, saying he does not believe any of it anymore. Pt does not want to increase dose at this time. He struggles with some anxiety but finds clonidine helpful for it. Pt asking for discharge, saying misses his kids and and looking forward to going home. Agrees to swithc risperdal to bedtime for once a day dosing conventional underwriter discussed elevated prolactin and subsequent risks which patients understands and wants to continue with med regimen also discussed BP, elevated cholesterol and pt says he will f/u with pcp impression: pt doing well, in good mood and with good insight; AH much improved and not bothersome. Pt has remained in good behavioral and impulse control throughout admission, appropriate with peers and staff and engaged in treatment. He is returning to his supportive . Pt is not in imminent risk of harm to self or others and appropriate to return to the community for tx Medication: risperidone 5mg qhs Clonidine bid and p.r.n: found clonidine helpful for anxiety. Lexapro 10mg daily Time spent discussing smoking cessation with patient: 3 to 10 minutes Status at Discharge Functional status at discharge: independent ambulation Overall status at discharge: patient is back to baseline Time Spent with Patient Time attestation: Total time managing care of this patient today __40__ minutes. Time spent: Greater than 30 minutes Specific discharge activities: met with pt; discussed with team; scripts, charting Discharge Plan Discharge Anticipated Discharge Date/Time: 11/01/25 13:11 Patient Disposition: Home, Self-Care Discharge Diagnosis: Schizophrenia Referrals: [facility] [employer] [Other] - 1 Week Referral Note: Follow up medication management appointment [facility] [Other] - 1 Week Referral Note: Follow up Intake/Therapy appointment [facility] [Other] - 11/03/25 8:00 am Referral Note: You have an intake appointment on 11/07/25, in person, with a clinical specialist. Once you complete this appointment, you will likely start PHP the following day. Good luck!! Discharge Medications: New escitalopram oxalate 10 mg Tablet 10 mg PO DAILY 30 Days Qty: 30 1RF clonidine HCl 0.1 mg Tablet See Rx Instructions .ROUTE .COMPLEX 30 Days Qty: 90 1RF Protocol: Hold for SBP< HOLD for SBP < : 90 Rx Instructions: take 1 tab every morning and at bedtime; may take additional tab daily as needed for anxiety risperidone 4 mg tablet 4 mg PO BEDTIME 30 Days Qty: 30 1RF Rx Instructions: take with 1mg tab risperidone 1 mg tablet 1 mg PO BEDTIME 30 Days Qty: 30 1RF Rx Instructions: take with 4mg tab Continued pantoprazole 40 mg tablet,delayed release (DR/EC) 40 mg PO DAILY Discharge Orders: Discharge Order (Routine); Ordered 11/01/25 Ordered By: Angel Holman Diet: Regular diet Activity on Discharge: As tolerated Stand Alone Forms: Patient Portal Discharge page, Community Support Print Language: Estonian Care Plan Goals: Maintain mood and safe behaviors Take medications as prescribed Continue to pursue sobriety Practice coping skills Continue with outpatient providers and reach out to them as needed Health Concerns: Mood stability and behaviors Hypertension Hyperprolactinemia -recheck prolactin level in 3-6months BRIT GERD Plan of Treatment: Follow up with your PCP, psychiatric provider and other outpatient providers regarding above concerns Take medications as prescribed recheck prolactin level in 3?6 months Assessment: Risk assessment at time of discharge:? Patient was interviewed prior to discharge and found to be fully oriented and without any SI or HI. Patient has improved insight and judgment and wants to continue treatment. Patient is not in imminent risk of harm to self or others and has a safety plan that includes presenting to the closest ER or calling 911 if feeling unsafe.? Patient has been observed closely by nursing and unit staff throughout admission; patient has not engaged in any behaviors that suggest dangerousness to self or others and has demonstrated appropriate behaviors and impulse control
[2025-11-01 12:00] VITALS: BP 156/78; PULSE 98
[2025-11-01] MEDS: Naloxone HCl Nasal TAKE HOME 4 MG SPRAY 8 MG NOSTRILALT (12:37)
== END 2025-11-01 12:47 | disposition home or self-care (01) | DRG 750 ==
PROVIDERS: Clinical Nurse Specialist Psychiatric/Mental Health, Adult; Nurse Practitioner Psychiatric/Mental Health; Admitting Provider Psychiatry & Neurology Psychiatry; Visit Provider Psychiatry & Neurology Psychiatry
DX: F20.9 Schizophrenia, unspecified (principal); R45.851 Suicidal ideations; E03.8 Other specified hypothyroidism; F14.90 Cocaine use, unspecified, uncomplicated; G47.33 Obstructive sleep apnea (adult) (pediatric); K21.9 Gastro-esophageal reflux disease without esophagitis; F10.11 Alcohol abuse, in remission; F19.10 Other psychoactive substance abuse, uncomplicated; Z87.891 Personal history of nicotine dependence; Z79.899 Other long term (current) drug therapy
CPT/HCPCS: 36415; 80061; 82565; 82607; 82746; 83036; 83735; 84146; 84439; 84443; 94660

== ENCOUNTER → 2025-10-24 16:17 | Outpatient (BNV) | payer BC, OTHER, SELFPAY | PROVIDERS: Admitting Provider Psychiatry & Neurology Psychiatry; Visit Provider Nurse Practitioner Family | DX: G47.33 Obstructive sleep apnea (adult) (pediatric) (principal) | CPT/HCPCS: 99231; 99252 ==

== ENCOUNTER → 2025-10-24 16:17 | Outpatient (BNV) | payer BC, OTHER, SELFPAY | PROVIDERS: Admitting Provider Psychiatry & Neurology Psychiatry; Visit Provider Psychiatry & Neurology Psychiatry | DX: F20.9 Schizophrenia, unspecified (principal); G47.33 Obstructive sleep apnea (adult) (pediatric); F14.90 Cocaine use, unspecified, uncomplicated; F11.21 Opioid dependence, in remission | CPT/HCPCS: 99232 ==

== ENCOUNTER → 2025-11-21 08:07 | Outpatient (REF) | payer BC, SELFPAY ==
--- OUTSIDE RECORDS SUMMARY | 2024-12-14 07:00 | XMS_ITS ---
Author Organization [facility] Address [address] [facility] [place] [address] [place] [address] Care Team Providers Care Die Repair Name Role Phone Crispin, Petar Unavailable [phone] REASON FOR VISIT 2 month f/u Encounters Encounter Location Date Provider Diagnosis [facility] [address] [place] [address] [place] [address] 12/14/2024 Petarair Roa Plan Of Treatment No Information Progress Notes * Angel BAKERDOB: 2 (45 yo M)Acc No.[id number]:12/14/2024 Progress Notes Patient: Darius Cutleric Provider: Dangelo Roa DO :1980 A ge:44 Y S ex:Male Date:12/14/2024 Address:[address] [place] [id number] Subjective: * Chief Complaints: * 2 month f/u * Electronic signature of Alejandra Roa DO on 11/21/2025 at 08:16 AM EST Sign off status: Pending * Provider: Dangelo Roa DO Date: 0 12/14/2024 Generated for Nicki james/Shruthi/eTransmitting on: 1 01/22/2025 08:16 AM EST
--- NOTE | 2025-11-21 08:14 | ECG_ITS ---
Test Reason : QTC CHECK Blood Pressure : */* mmHG Vent. Rate : 86 BPM Atrial Rate : 86 BPM P-R Int : 138 ms QRS Dur : 76 ms QT Int : 360 ms P-R-T Axes : 40 -5 13 degrees QTcB Int : 430 ms Sinus rhythm with marked sinus arrhythmia Otherwise normal ECG No previous ECGs available Referred By: Julia Senior Electronically Signed By: NOLAN LIRIANO MD
--- OUTSIDE RECORDS SUMMARY | 2025-11-21 08:16 | XMS_ITS | Clinical Summary ---
Author Organization [facility] Address [address] [place] [address] Phone Care Team Providers Care Quality Assurance Project Manager Name Role Phone Physician, No Pcp Primary Care Provider Unavaila ble Allergies No known active allergies Medications pantoprazole (PROTONIX) 40 mg EC tablet Take 1 tablet (40 mg total) by mouth 1 (one) time each day. 10/21/2025 Active Active Problems No known active problems Encounters Date Type Department Care Team Description 10/23/2025 5:35 PM EST - 10/24/2025 3:57 PM EST Emergency [facility] Emergency [address] [place] [id number] Susanna Andrea MD Zaidi, MD David Montanez John, MD Wyman, Tim, MD Auditory hallucinations (Primary Dx); Paranoid delusion ([facility] V24, [facility] V28); Chest pain, unspecified type; Anxiety Discharge Disposition: [facility] 09/08/2025 9:21 AM EDT - 09/08/2025 2:49 PM EDT Emergency [facility] Emergency [address] [place] [id number] Bebo Paul MD Polysubstance abuse ([facility] V24, CMS/[facility] V28) (Primary Dx); Paranoia (psychosis) (CMS/[facility] V24, CMS/[facility] V28) Discharge Disposition: Home or Self Care [...] PM EST Sexual Orientation Not on file Last Filed Vital Signs Vital Sign Reading [...] POCT Glucose, blood (10/23/2025 10:38 PM EST) [facility] Signature Glucose POCT 79 70 - 100 mg/dL 10/23/2025 10:39 PM EST [facility] Blood Capillary blood specimen / Unknown 10/23/2025 10:38 PM EST 10/23/2025 10:40 PM EST Will Hopson MD LAB POINT OF CARE TEST DOCKED DEVICE UNSOLICITED RESULTS Final Result CLAUDIA RANGEL [place] ([facility]) [facility] [address] [place] [address], [place] [phone] * XR Chest 2 Views (10/23/2025 7:40 PM EST) Anatomical Region Laterality Modality Body Radiographic Cassidy ging 10/24/2025 8:05 AM EST Impressions 10/24/2025 8:05 AM EST No acute findings. -------- FINAL REPORT -------- Dictated By: Shankar Gardner Dictated Date: 10/24/2025 08:05 ET Assigned Physician: Shankar Gardner Reviewed and Electronically Signed By: Shankar Gardner Signed Date: 10/24/2025 08:05 ET Workstation ID: [id number] Transcribed By: Self Edit Transcribed Date: 10/24/2025 [...] Signed Date: 10/24/2025 08:05 ET Workstation ID: [id number] Transcribed By: Self Edit Transcribed Date: 10/24/2025 08:05 ET Susanna Andrea MD IMG XR PROCEDURES Final Result * Troponin I High Sensitivity (10/23/2025 6:07 PM EST) [facility] High Sensitivity Troponin I 3 <=53 ng/L 10/23/2025 7:00 PM EST [facility] Blood Venous blood specimen / Unknown Venipuncture / Unknown 10/23/2025 6:07 PM EST 10/23/2025 6:31 PM EST Susanna Andrea MD LAB BLOOD ORDERABLES Final Resul t [facility] [address] [place] [address], [place] [phone] * Drug abuse screen 8a panel, urine (10/23/2025 6:07 PM EST) Only the most recent of2 resultswithin the time period is included. [facility] Amphetamine Screen, Ur Negative Negative 6:57 PM EST [facility] Comment:Certain OTC medicati ons containing ephedrine, phenylephrine, pseudoephedrine and phenylpropanolamine can cause false positive results. Barbiturate Screen, Ur Negative Negative 6:57 PM EST [facility] Benzodiazepine Screen, Ur Negative Negative 10/23/2025 6:57 PM EST [facility] Cocaine Screen, Ur Negative Negative 2024 6:57 PM [facility] Opiate Screen, Ur Negative Negative 025 6:57 PM [facility] Cannabinoid (THC) Screen, Ur Negative Negative 10/23/2025 6:57 PM [facility] Comment:Specimens from patie nts taking pantoprazole sodium (Protonix) have been shown to produce false positive results. Oxycodone Screen, Ur Negative Negative 10/02 6:57 PM EST [facility] Fentanyl, Ur Negative Negative 10/23/2025 6:57 PM EST [facility] Urine Urine specimen obtained by clean catch procedure / Unknown Non-blood Collection / Unknown 10/23/2025 6:07 PM EST 10/23/2025 6:31 PM EST [facility] - 10/23/2025 6:57 PM EST [...] MD LAB URINE ORDERABLES Alexus l Result [facility] [address] [place] [address], [place] [phone] * Buprenorphine screen, urine (10/23/2025 6:07 PM EST) [facility] Buprenorphine Screen Urine Negative Negative 10/23/2025 6:57 PM EST [facility] Urine Urine specimen obtained by clean catch procedure / Unknown Non-blood Collection / Unknown 10/23/2025 6:07 PM EST 10/23/2025 6:31 PM EST [facility] - 10/23/2025 6:57 PM EST Assay cutoff 5 ng/mL Semi-quantitative assay for screening purposes only. Unconfirmed screening result should not be used for non-medical purposes. *ALTERNATE METHOD CONFIRMATION DONE UPON REQUEST ONLY* Will Hopson MD LAB URINE ORDERABLES Alexus l Result Performing Organization Address City/[facility]/ZIP Co de Phone Number [facility] [address] [place] [address], [place] [phone] * Methadone, urine (10/23/2025 6:07 PM EST) [facility] Methadone Screen, Urine Negative Negative 10/23/2025 6:57 PM [facility] Comment: Assay cutoff 300 ng/mL Semi-quantitative assay for screening purposes only. Unconfirmed screening result should not be used for non-medical purposes. *ALTERNATE METHOD CONFIRMATION DONE UPON REQUEST ONLY* Urine Urine specimen obtained by clean catch procedure / Unknown Non-blood Collection / Unknown 10/23/2025 6:07 PM EST 10/23/2025 6:31 PM EST Will Hopson MD LAB URINE ORDERABLES Alexus l Result [facility] [address] [place] [address], [place] [phone] * CBC auto differential (10/23/2025 6:07 PM EST) Only the most recent of2 resultswithin the time period is included. [facility] WBC 9.5 4.8 - 10.8 K/mcL [...] LAB HEMETOLOGY METHOD 10/23/2025 6:34 PM EST [facility] Lymphocytes Absolute 2.48 1.00 - 5.00 K/[facility] HEMETOLOGY METHOD 10/23/2025 6:34 PM EST [facility] Monocytes Absolute 0.62 0.20 - 1.00 K/[facility] HEMETOLOGY METHOD 10/23/2025 6:34 PM EST [facility] Eosinophils Absolute 0.13 0.00 - 0.50 K/[facility] HEMETOLOGY METHOD 10/23/2025 6:34 PM EST [facility] Basophils Absolute 0.05 0.00 - 0.20 K/[facility] HEMETOLOGY METHOD 10/23/2025 6:34 PM [facility] Immature Granulocytes Absolute 0.03 0.00 - 0.03 K/[facility] HEMETOLOGY METHOD 10/23/2025 6:34 PM EST [facility] Blood Venous blood specimen / Unknown Venipuncture / Unknown 10/23/2025 6:07 PM EST 10/23/2025 6:31 PM EST Will Hopson MD LAB BLOOD ORDERABLES Alexus l Result [facility] [address] [place] [address], * Phencyclidine, urine (10/23/2025 6:07 PM EST) PCP Scrn, Ur Negative Negative 10/23/2025 6:57 PM EST [facility] Comment: Assay cutoff 25 ng/mL [...] ORDERABLES Alexus l Result Performing Organization Address City/[facility] Co de Phone Number [facility] [address] [place] [address], [place] [phone] * Ethanol (10/23/2025 6:07 PM EST) Only the most recent of2 resultswithin the time period is included. Ethanol Level <3 0 - 10 mg/dL 10/23/2025 7:07 PM EST [facility] Blood Venous blood specimen / Unknown Venipuncture / Unknown 10/23/2025 6:07 PM EST 10/23/2025 6:31 PM EST Will Hopson MD LAB BLOOD ORDERABLES Alexus l Result Performing Organization Address [facility] Co de Phone Number [facility] [address] [place] [address], [place] [phone] * Acetaminophen level (10/23/2025 6:07 PM EST) Acetaminophen Level 11.1 10.0 - 30.0 mcg/mL 10/23/2025 7:01 PM [facility] Blood Venous blood specimen / Unknown Venipuncture / Unknown 10/23/2025 6:07 PM EST 10/23/2025 6:31 PM EST Will Hopson MD LAB BLOOD ORDERABLES Alexus l Result Performing Organization Address City/[facility]/ZIP Co de Phone Number [facility] [address] [place] [address], [place] [phone] * Salicylate level (10/23/2025 6:07 PM EST) Salicylate Level <3.0 2.0 - 29.0 mg/dL 10/23/2025 7:07 PM [facility] Blood Venous blood specimen / Unknown Venipuncture / Unknown 10/23/2025 6:07 PM EST 10/23/2025 6:31 PM EST us Will Hopson MD LAB BLOOD ORDERABLES Alexus l Result [facility] [address] [place] [address], [place] [phone] * (ABNORMAL) Comprehensive metabolic panel (10/23/2025 6:07 [...] 42 - 121 unit/L 10/23/2025 7:01 PM [facility] Total Protein 7.4 6.0 - 8.0 g/dL 10/23/2025 7:01 PM [facility] Albumin 4.7 3.2 - 5.0 g/dL 10/23/2025 7:01 PM [facility] Total Bilirubin 1.8(H) 0.0 - 1.4 mg/dL 10/23/2025 7:01 PM [facility] Blood Venous blood specimen / Unknown Venipuncture / Unknown 10/23/2025 6:07 PM EST 10/23/2025 6:31 PM EST us Will Hopson MD LAB BLOOD ORDERABLES Alexus l Result Performing Organization Address City/State/[facility] Co de Phone Number [facility] [address] [place] [address], * ECG 12 lead (10/23/2025 6:06 PM EST) Ventricular Rate ECG 87 BPM [facility] Atrial Rate 87 BPM [facility] P-R Interval 136 ms [facility] QRS Duration 84 ms [facility] Q-T Interval 356 ms GEM[facility] QTc 428 ms GEMUSE P Wave [place] 37 degrees GEMUSE R [place] -26 degrees GEMUSE T [place] 43 degrees GEMUSE ECG Interpretation Normal sinus rhythm with sinus arrhythmia Normal ECG No previous ECGs available Confirmed by Holley THAPA JAMES ([id number]) on 10/24/2025 2:09:16 PM GEM[facility] 10/23/2025 6:06 PM EST 10/24/2025 2:09 PM EST us Will Hopson MD ECG ORDERABLES Final Res ult GEM[facility] * Fentanyl urine (09/08/2025 9:59 AM EDT) Fentanyl, Ur Negative Negative LAB CHEMISTRY METHOD 09/08/2025 10:53 AM EDT [facility] Urine Urine specimen obtained by clean catch procedure / Unknown Non-blood Collection / Unknown 09/08/2025 9:59 AM EDT 09/08/2025 10:16 AM EDT Narrative [facility] - 09/08/2025 10:53 AM EDT Assay cutoff 1 ng/mL Semi-quantitative assay for screening purposes only. Unconfirmed screening result should not be used for non-medical purposes. *ALTERNATE METHOD CONFIRMATION DONE UPON REQUEST ONLY* us Bebo Paul MD LAB URINE ORDERABLES Final Result Performing Organization Address [facility] Co de Phone Number [facility] [address] [place] [address], from Last 3 Months Insurance [facility] ([place]) Care Teams Quality Assurance Project Manager Relationship Specialty Start Date End Date Physician, No Pcp PCP - General 10/23/25
--- OUTSIDE RECORDS SUMMARY | 2025-11-21 08:17 | XMS_ITS | Patient Health Record ---
Author Organization [facility] Serena Powers Address [address] [place] [phone] Care Team Providers Care Creative Project Manager Name Role Phone ELBA MAHAN Unavailable [phone] Reason For Referral No Information Problems Problem Type SNOMED Code ICD Code Onset Dates Problem Status W/U Status Risk Notes Problem Generalized anxiety disorder (54404124) SANDEEP (generalized anxiety disorder) (F41.1) Active confirmed Problem Moderate recurrent major depression (17367519) MDD (major depressive disorder), recurrent episode, moderate (F33.1) Active confirmed Plan Of Treatment No Information Insurance Providers Payer Name Payer Address Payer Phone Subscriber Number Group Number Insured Name Patient Relationship to Insured Coverage Start Date Coverage End Date Monique Sherman Arely [address] [place] [id number] [phone] [id number] Angel Baker Self - patient is the insured
--- OUTSIDE RECORDS SUMMARY | 2025-11-21 08:17 | XMS_ITS | Patient Health Record ---
Author Organization [facility] Address [address] [place] [address] Care Team Providers Care Taker Off [employer] Name Role Phone Petar Roa Unavailable [phone] Allergies Allergen (clinical drug ingredient) Drug/Non Drug Allergy documented on EMR Reaction Allergy Type Onset Date Status Pollen Pollen Unknown Allergy Active Reason For Referral No Information Medications Medication SIG (Take, Route, Frequency, Duration) Notes Start Date End Date Status Famotidine 40 MG Tablet 1 tablet Orally Twice a day; Duration: 30 days 03/09/2025 Active Pantoprazole Sodium 40 MG Tablet Delayed Release TAKE 1 TABLET BY MOUTH EVERY DAY; Duration: 83 Active Tylenol Active Social History Social History Additional Details Category Social Info Options Details Social History Marital Status Single Occupation mailman Tobacco Use Never Smoked Alcohol Use Moderate Alcohol - stopped a few months ago Problems Problem Type SNOMED Code ICD Code Onset Dates Problem Status W/U Status Risk Notes Problem Gastritis and duodenitis (990035131) Gastritis and duodenitis (K29.90) Active confirmed Problem Gastroesophageal reflux disease (disorder) (916067884) Chronic GERD (K21.9) Active confirmed Problem Abdominal pressure (379279734) Abdominal pressure (R10.9) Active confirmed Problem Gastroesophageal reflux disease with esophagitis (disorder) (609691956) Gastroesophageal reflux disease with esophagitis without hemorrhage (K21.00) Active confirmed Problem Gastroesophageal reflux disease with esophagitis (disorder) (028101666) Gastroesophageal reflux disease with esophagitis, unspecified whether hemorrhage (K21.00) Active confirmed Problem Erosive gastroesophageal reflux disease (K21.00) Active confirmed Vital Signs Heart Rate 74 /min 03/09/2025 Blood pressure diastolic 80 mm Hg 03/09/2025 Height 69 in 03/09/2025 Blood pressure systolic 140 mm Hg 03/09/2025 Weight 208 lbs 03/09/2025 BMI 30.71 kg/m2 03/09/2025 Encounters Encounter Location Date Provider Diagnosis [facility] [address] [place] [address] 01/19/2025 Petar Crispin Esophageal dysphagia R13.19 ; Chronic GERD K21.9 and Erosive gastroesophageal reflux disease K21.00 [facility] [address] [place] [address] 03/09/2025 Petar Crispin Gastroesophageal ref lux disease with esophagitis, unspecified whether hemorrhage K21.00 Assessments Encounter Date Diagnosis (ICD Code) Assessment Notes Treatment Notes Treatment Clinical Notes Section Notes 01/19/2025 Chronic GERD (ICD-10 - K21.9) 44-year-old male with sleep apnea, spinal stenosis presenting for follow up Esophageal dysphagia (feeling as though food moving down slowly, no improvement with PPI BID) history of tree and pollen allergies 05/2024 EGD with Esophageal mucosal changes (GEJ chronic inflammation, mid-esophagus active esophagitis) Chronic GERD Erosive GERD 05/2024 EGD with Esophageal mucosal changes (GEJ chronic inflammation, mid-esophagus active esophagitis) 10/2024 started on twice daily PPI with continued GERD sxs Bloating Left sided abdominal pain Dyspepsia? 03/2024 CT AP with IV: Calcified granuloma, Duplicated left renal collecting system 05/2024 CT AP with PO/IV: right hepatic lobe Calcified granuloma, otherwise nonrevealing 05/2024 EGD with Erosive gastropathy (mild superficial inactive gastritis, no HP/IM) and duodenitis (mild chronic peptic duodenitis) was started on once daily PPI after EGD. Reported about 60% improvement in sxs. No prior colonoscopies no improvement with charcole caps Plan Continue PPI BID to complete 8 weeks, can decrease to once daily there after Will obtain Esophagram WIll reach out to pathologist to r/o EOE If esophagram with motility issue will plan for manometry If esophagram non-revealing will plan for Vail testing RTC in 6-8 weeks 01/19/2025 Esophageal dysphagia (ICD-10 - R13.19) 44-year-old male with sleep apnea, spinal stenosis presenting for follow up Esophageal dysphagia (feeling as though food moving down slowly, no improvement with PPI BID) history of tree and pollen allergies 05/2024 EGD with Esophageal mucosal changes (GEJ chronic inflammation, mid-esophagus active esophagitis) Chronic GERD Erosive GERD 05/2024 EGD with Esophageal mucosal changes (GEJ chronic inflammation, mid-esophagus active esophagitis) 10/2024 started on twice daily PPI with continued GERD sxs Bloating Left sided abdominal pain Dyspepsia? 03/2024 CT AP with IV: Calcified granuloma, Duplicated left renal collecting system 05/2024 CT AP with PO/IV: right hepatic lobe Calcified granuloma, otherwise nonrevealing 05/2024 EGD with Erosive gastropathy (mild superficial inactive gastritis, no HP/IM) and duodenitis (mild chronic peptic duodenitis) was started on once daily PPI after EGD. Reported about 60% improvement in sxs. No prior colonoscopies no improvement with charcole caps Plan Continue PPI BID to complete 8 weeks, can decrease to once daily there after Will obtain Esophagram WIll reach out to pathologist to r/o EOE If esophagram with motility issue will plan for manometry If esophagram non-revealing will plan for Vail testing RTC in 6-8 weeks 03/09/2025 Gastroesophageal reflux disease with esophagitis, unspecified whether hemorrhage (ICD-10 - K21.00) 44-year-old male with sleep apnea, spinal stenosis presenting for follow-up Chronic Erosive GERD (LA-GA) Esophageal dysphagia (esophageal spasms 2/2 to GERD??) history of tree and pollen allergies 05/2024 EGD; LA-GA, Esophageal mucosal changes (GEJ chronic inflammation, mid-esophagus active esophagitis, Discussed with pathologist no evidence of EOE) 2022: skin prick testing reveals sensitization to grass and tree pollens 10/2024 no improvement with Protonix BID 01/2025 Esophagram: The esophagus demonstrates normal distensibility, contour and course. There is no abnormal extrinsic mass effect. Mild gastroesophageal reflux was demonstrated during this examination. A 13 mm barium tablet was swallowed without difficulty and passed unimpeded through the gastroesophageal junction into the stomach Dyspepsia (Bloating, Left sided abdominal pain, associated with GERD) Lactose intolerance 03/2024 CT AP with IV: Calcified granuloma, Duplicated left renal collecting system 05/2024 CT AP with PO/IV: right hepatic lobe Calcified granuloma, otherwise nonrevealing 05/2024 EGD with Erosive gastropathy (mild superficial inactive gastritis, no HP/IM) and duodenitis (mild chronic peptic duodenitis) no improvement with charcole caps, some improvement with Protonix Plan: Discussed case with pathology no evidence of EOE on pathology, NO evidence of EOE as there is no increase in EOE's, Overall the findings are in the GERD category Reported PPI BID did not control sxs, and sxs only happening 1-2 times a week with triggering foods. Discussed potential option including EGD, Different PPI, H2 malaika etc. Patient was agreeable to trying Pepcid BID daily. Will stop PPI in the interim. Will restart PPI if sxs get worse. He will call back if sxs worsen of having acute dysphagia. Will call back to schedule apt in 4-6 weeks 01/19/2025 Erosive gastroesophageal reflux disease (ICD-10 - K21.00) 44-year-old male with sleep apnea, spinal stenosis presenting for follow up Esophageal dysphagia (feeling as though food moving down slowly, no improvement with PPI BID) history of tree and pollen allergies 05/2024 EGD with Esophageal mucosal changes (GEJ chronic inflammation, mid-esophagus active esophagitis) Chronic GERD Erosive GERD 05/2024 EGD with Esophageal mucosal changes (GEJ chronic inflammation, mid-esophagus active esophagitis) 10/2024 started on twice daily PPI with continued GERD sxs Bloating Left sided abdominal pain Dyspepsia? 03/2024 CT AP with IV: Calcified granuloma, Duplicated left renal collecting system 05/2024 CT AP with PO/IV: right hepatic lobe Calcified granuloma, otherwise nonrevealing 05/2024 EGD with Erosive gastropathy (mild superficial inactive gastritis, no HP/IM) and duodenitis (mild chronic peptic duodenitis) was started on once daily PPI after EGD. Reported about 60% improvement in sxs. No prior colonoscopies no improvement with charcole caps Plan Continue PPI BID to complete 8 weeks, can decrease to once daily there after Will obtain Esophagram WIll reach out to pathologist to r/o EOE If esophagram with motility issue will plan for manometry If esophagram non-revealing will plan for Vail testing RTC in 6-8 weeks Plan Of Treatment Pending Test Test Name Order Date XR ESOPHAGRAM 01/19/2025 Insurance Providers Payer Name Payer Address Payer Phone Subscriber Number Group Number Insured Name Patient Relationship to Insured Coverage Start Date Coverage End Date [facility] [address] [place] [address] [id number] Angel Baker Self - patient is the insured Medical (General) History Medical History History ICD Code sleep apnea spinal stenosis Surgical History Surgery Date(Month/Year) None
[2025-11-21 08:28] LABS: MANUAL DIFF FLAG NO
[2025-11-21 08:58] LABS: Appearance Urine Clear; Glucose Urine UA Negative (Negative); PH 5.5 (5.0-9.0); Specific Gravity - Urine 1.025 (1.005-1.025)
[2025-11-21 09:02] LABS: Hematocrit 44.5 % (42.0-52.0); Hemoglobin 14.8 g/dl (14.0-18.0); Imm Gran Abs Auto 0.06 X10*3/uL (0.00-0.03); Imm Gran Pct Auto 0.8 % (0.0-0.4); Lymphocytes Absolute Auto 2.1 X10*3/uL (1.2-4.9); Mean Corpuscular HGB Conc 33.3 g/dl (31.0-36.0); Mean Corpuscular Hemoglobin 29.8 pg (27.0-33.0); Mean Corpuscular Volume 89.5 fL (80.0-98.0); NRBC Abs Auto 0.000 X10*3/uL (0.0-0.012); NRBC Pct Auto 0.0 /100WBC (0.0-0.2); Platelet Count 181 X10*3/uL (160-400); Red Blood Count 4.97 X10*6/uL (4.60-5.80); White Blood Count 7.3 X10*3/uL (4.8-10.8)
[2025-11-21 09:57] LABS: Alanine Aminotransferase 50 U/L (0-40); Albumin Level 4.8 g/dL (3.5-5.0); Alkaline Phosphatase 102 U/L (39-117); Anion Gap 12 (12-20); Aspartate Amino Transferase 41 U/L (5-37); Blood Urea Nitrogen 22 mg/dL (9-16); Calcium 9.4 mg/dL (8.4-10.2); Carbon Dioxide 24 mmol/L (22-29); Chloride 109 mmol/L (96-108); Cholesterol 184 mg/dL (<200); Estimated Glomerular Filt Rate > 60; HDL Cholesterol 42 mg/dL (>40); Iron 104 mcg/dL (45-160); Magnesium 2.1 mg/dL (1.6-2.6); Percent Iron Saturation 40 % (15-50); Potassium 4.0 mmol/L (3.3-5.1); Sodium 141 mmol/L (135-145); Total Iron Binding Capacity 259 mcg/dL (228-428); Total Protein 7.3 g/dL (6.5-8.0); Triglycerides 268 mg/dL (<150); Unsaturated Iron Binding 155 ug/dL
[2025-11-21 10:15] LABS: Free T4 (Free Thyroxine) 0.81 ng/dL (0.71-1.85); Thyroid Stimulating Hormone 2.68 uIU/mL (0.32-4.0)
[2025-11-21 10:21] LABS: Folate 6.6 ng/mL (> or = 4.0); Vitamin B12 374 pg/mL (200-900)
== END ==
LOC: HO.CARD 08:07
PROVIDERS: Visit Provider Psychiatry & Neurology Psychiatry
DX: F20.9 Schizophrenia, unspecified (principal); F39 Unspecified mood [affective] disorder; Z13.0 Encounter for screening for diseases of the blood and blood-forming organs and certain disorders involving the immune mechanism; Z13.6 Encounter for screening for cardiovascular disorders; Z13.1 Encounter for screening for diabetes mellitus; Z13.29 Encounter for screening for other suspected endocrine disorder
CPT/HCPCS: 36415; 80053; 80061; 81001; 82306; 82607; 82746; 83036; 83090; 83540; 83735; 84146; 84402; 84403; 84425; 84439; 84443; 85025; 85652; 93005

== ENCOUNTER → 2025-11-21 08:14 | Outpatient (BNV) | payer BC, SELFPAY | PROVIDERS: Visit Provider Internal Medicine Cardiovascular Disease | DX: Z13.6 Encounter for screening for cardiovascular disorders (principal) | CPT/HCPCS: 93010 ==

== ENCOUNTER 2025-11-21 12:45 | Outpatient (RCR) | payer BC, OTHER, SELFPAY ==
[2025-11-04 09:36] VITALS: BP 110/72; PULSE 76; TEMP 37.3; BMI 32.2
--- NOTE | 2025-11-04 10:15 | PC.ADMIT ---
Patient is a 45 year old partnered male who was referred to [facility] by [facility] inpatient behavioral health unit from 10/24-11/01/25 secondary to increased depression with SI along with struggling with substance use. Patient reports he was using cocaine prior to hospitalization and was struggling with paranoia, irritability, AH, and decreased appetite. His goal is to stay sober. Patient reports last use of cocaine was 09/07/25. Patient also has a history of using opiates, alcohol, and marijuana. He reports he is sober for all substances at this time. He stated he self presented to [facility] prior to going inpatient and while at [facility] they signed him up with a coach. Patient is alert and oriented x4. He is calm and cooperative. His thoughts are clear and logical. He presented with anxious mood and affect. He denied SI, no HI. He was given a copy of his safety plan if needed. Medications updated with patient and patient's discharge paperwork from inpatient LOC. Patient reports he is taking medications as prescribed. Denied any AH, paranoid thoughts, no irritability.
[2025-11-04 21:46] LABS: Cannabinoid Screen Urine Not Detected (Not Detect)
--- NOTE | 2025-11-07 15:14 | HO.PHP ---
[facility] staff member received a phone call from Angel Salas's partner, who noted that she was having difficulties with getting through to [employer] and was unable to speak to a commercial sales representative regarding their insurance. Maritza stated that she was able to speak to someone through [employer] and they informed her that some providers are willing to cover for case to case situations. Maritza was exploring if we would be willing to cover the cost. [facility] staff member informed Maritza that she does not make that decision and encouraged her to reach out to the billing department for any further questions. Maritza was receptive.
--- NOTE | 2025-11-09 12:24 | HO.PHP ---
[facility] staff member placed a referral for OP therapy and Med Management via telehealth through [facility] for Angel. [facility] staff member is waiting on a phone call with appointments dates and times.
--- NOTE | 2025-11-09 13:04 | PC.NURSE ---
I met with Angel today as he does not have a PCP. I asked him if he would like my help finding him a PCP and he stated his is going to take care of this for him and is currently looking into this for him now. He thanked me for trying to help him however he declined my help at this time.
--- NOTE | 2025-11-09 19:01 | PM.EVENT ---
Event Note Date of Service: 11/08/25 Event Note: 11/08/25 Time Spent With Patient Time: Total time managing care of this patient today ____ minutes.
--- NOTE | 2025-11-10 10:37 | HO.PHP ---
PHP staff member spoke to Suzie through [facility] and was provided with appointment dates and times for med management and OP therapy. Angel's OP therapy appointment is scheduled for November 17, 2025 at 2 PM with George Erwin via telehealth. and . Angel has a med provider appointment scheduled for December 08, 2024 at 10 AM with Isrrael Bullock. and .
--- NOTE | 2025-11-10 15:07 | HO.PHP ---
The clients case has been open and reviewed in teams.
--- NOTE | 2025-11-10 23:03 | HO.PS.ADMBH ---
HPI Date of Service: 11/10/25 Chief Complaint: schizoaffective d/o,AUD,DEDE Sources of Information: patient interviewed, chart reviewed and crisis/core team assessment reviewed HPI Narrative: Patient is 45 year old male who carries diagnoses for Schizoaffective Disorder and Cocaine use disorder who is being stepped down from [facility] at [facility] after an 8 day admission for worsening AH, paranoia and SI in the context of cocaine use, untreated psychosis and medication non-compliance. He reports being discharged on November 01 combination Risperdal 5 mg Lexapro 10 mg and clonidine 0.1 mg. I am doing lot better now... Feeling more level. Probably the best I felt in a long while . States he is able to focus on tasks around the house and spend time with his kids had not been able to do for a number of months. He reports that he used to only experienced hallucinations and paranoia when he was using drugs but this has evolved over time. Reports SI comes from the voices he hears and when he is feeling more depressed. Substances of choice are cocaine, followed by Percocets, THC. Hes been sober since01/2023. He denies any history of IVDA. He reports that he stopped using all substances on September 07, then his paranoia at got really out of all. He denies experiencing any urges or cravings because he keeps himself occupied and busy with his family. His main complaint at this time is issues with nightmares and sleep disturbance. Denies any SI last occurred before hospitalization. Last AH was during hospitalization, denies any history of VH. Denies any SI, HI or any thoughts of harming self or others. Past Psychiatric History: [facility] x1: to [facility] in 10/2025 No previous PHP, repite or detox admissions. DEnies any SA SIB as abusing substances, denies any other [facility] Medical History (Updated 11/22/25 @ 04:33 by Julia Senior MD) Percocet use disorder, moderate, in early remission Cocaine use disorder Pre-diabetes Spinal stenosis Stomach ulcer Schizophrenia BRIT (obstructive sleep apnea) Narrative: Denies any seizures Multiple concussions in the past in childhood and 20s - sports-related (football, boxing), fighting Ht: 5'8 Wt: 210 lbs ALL: NKDA Family History: Maternal uncle schizophrenia Patient's son has significant mental health issues Social History: Lives with , son and daughter Trauma History: Positive trauma history Diagnostics Vital Signs (24Hr): BMI result Body Mass Index 32.2 Meds/Allergies Meds Home Medications ?Medication ?Instructions ?Recorded ?Confirmed ?Type pantoprazole 40 mg tablet,delayed 40 mg PO DAILY 10/24/25 11/04/25 History release Allergies Allergies Allergy/AdvReac Type Severity Reaction Status Date / Time No Known Allergies Allergy Verified 11/04/25 09:35 Mental Status Exam Mental Status Exam Narrative: Alert, oriented, in no acute distress. Calm, cooperative, guarded. No psychomotor agitation or neurovegetative retardation. Eye contact intermittent, intense. Mood depressed, affect constricted. Speech normal, at times terse. Thought process linear, coherent. Thought content related to stressors, denies SI or HI. Denies AH, VH, mildly suspicious and guarded, but no gross paranoia or delusional content elicited. No current evidence of psychosis. Insight and judgment - fair but adequate. Assessment & Plan Assessment & Plan (1) Schizophrenia: Status: Acute Code(s): F20.9 - Schizophrenia, unspecified (2) Cocaine use disorder: Status: Acute Code(s): F14.90 - Cocaine use, unspecified, uncomplicated (3) Percocet use disorder, moderate, in early remission: Status: Acute Code(s): F11.21 - Opioid dependence, in remission (4) Psychotic disorder with hallucinations: Status: Acute Code(s): F29 - Unspecified psychosis not due to a substance or known physiological condition Plan Admit to [facility] VS reviewed on admission: afebrile, BP 110/72;?76 bpm start prazosin 1 mg qhs continue regular medications for now Routine lab work as indicated EKG, routine for baseline QTc for medication considerations as indicated UDS as indicated [facility] reviewed Continue to monitor as per protocol Patient educated on: diagnosis, medication risk/benefits and substance abuse Informed Consent: understands Reason for continued partial hosp. stay Substantial Risk for: rapid decompensation and med/psych decompensation Certification I certify that partial hospital treatment is medically necessary due to the symptoms and problems resulting from the patient's mental illness and the failure to treat the patient at the partial hospital level of care would likely result in the patient requiring inpatient psychiatric care which could not be prevented at a less intensive level of care. Time Spent With Patient Time: Total time managing care of this patient today __90__ minutes.
--- NOTE | 2025-11-14 11:11 | HO.PHP ---
PHP staff member reached out to Maritza as a recommendation per the consulting sales manager Natalie. PHP staff member reached out to Maritza and stated that she would like to be mindful around discussing insurance topics with Angel since it appears to create stress for Angel. Maritza thanked the clinician for reaching out to her. PHP staff member informed Maritza that when she met with Angel to review his treatment plan, he expressed that he did not have a therapist or med provider. PHP staff stated that she placed a referral for Angel for therapy and med management and received appointment dates and times. PHP staff member disclosed that she received a voicemail the following day noting that they won't be able to have Angel in there practice because his insurance is out of network and we would have to look elsewhere. Maritza voiced that they have out of network benefits where they should be able to receive that support but come December they will be getting [facility] to cover OP services. PHP staff member was receptive and explored how Maritza would like for her to proceed with this and if she would like for her to reach out to the insurance company to gather in network therapist/med providers. Maritza voiced that she would reach out to the insurance company along with having PHP staff reach out to try to obtain that information. PHP staff member was receptive and voiced if she receives that information she will provide that to Angel by the end of the day. Maritza appeared receptive. Maritza also reported that a medication wasn't sent through that Angel shared that he would be starting and she is hoping we could make the med provider aware because he has been waking up with nightmares. PHP staff informed her that a clinician had just let the med provider know prior to her calling but she will remind the med provider as well. Maritza thanked the clinician.
--- NOTE | 2025-11-14 11:16 | HO.PHP ---
This entry writer met with Angel during group 2 to review a relapse prevention plan due to his primary substance use and the lack of co-occurring substance use patients in the program currently. Warning signs he might use are that he is isolated, he won't talk to anyone, and if he is around substances such as during outings or if family bring over alcohol. He shared that he asked his family not to bring alcohol over this weekend, and they did accommodate this for him. He relayed that people who can get him through a craving are his , family not using substances, medication supports, and having a dance constitution party with his kids. Things he can do to get his mind off using if he was stressed he would use music/headphones, read, housework, watch football, and have family time. This entry writer and pt discussed available options for recovery meetings for supports such as the QR codes and available websites in the packet in his folder. Angel was not previously aware of these supports. This appeared receptive.
--- NOTE | 2025-11-14 15:25 | HO.PHP ---
PHP staff member contacted Leatha through [employer]. PHP staff member left a VM requesting a list of in network providers in the [facility] area. PHP staff member is awaiting on a call back.
--- NOTE | 2025-11-15 15:26 | HO.PHP ---
PHP staff member left a VM for Bailey through [place] requesting a list of OP providers who are in network. PHP staff member is awaiting on a returned phone call.
--- NOTE | 2025-11-16 12:26 | HO.PHP ---
At roughly 11 am bond writer met with Angel to discuss relapse prevention in place of the [facility] group. Pt processed some of his guilt around past use, identified current supports and coping mechanisms which include his ana/spirituality, projects at home and boundaries with select individuals. Pt was provided with a WRAP (Wellness Recovery Action Plan) and provided instructions and examples to complete independently or with his with . Pt agreed and recognized the benefits of having a WRAP plan in place to prevent relapse and/or decline in mental health. Angel expressed gratitude for [facility], for his supportive and children, and for his decision to commit to sobriety. Expressed insight, reports continued abstinence from substances and future-oriented. Denies SI.
--- NOTE | 2025-11-17 09:59 | HO.PHP ---
PHP staff member reached out to Maritza to see if she was able to get further insight around in network providers. Allysonlouie disclosed that she contacted the agency where PHP staff member placed the referral initially and they told her that they still have those appointments and that he needs to be seen still before they can bill out of network. PHP staff was receptive and voiced that she will follow up with [facility] because she was informed that because it was out of network, we would have to look else where for the appointments and that they were cancelling. Maritza was in agreement. PHP staff also noted that Angel provided her with a new insurance card that will be effective December 01, 2024 and will provide that card information to the referral agency to try to schedule those appointments after December 01, 2024. Maritza was in agreement. PHP staff member reached out to [facility] due to Angel having a scheduled appointment for 2 PM. PHP staff member spoke to Hudson, who disclosed that there are no appointments scheduled for Angel. PHP staff was receptive and asked to be directed to the referral department. PHP staff member explored what was occurring with the appointments that were scheduled. Dennys shared that they cancelled those appointments due to not being contracted with [facility]. PHP staff shared that his insurance is changing on December 01, 2024 to [place] and explored if they accept that insurance. Dennys voiced that they do take [facility]. PHP staff member attempted to schedule new appointments for Angel but Dennys disclosed that they won't be able to take that insurance information until after December 01, 2024 when the card is active. They encouraged me to inform the pt. to call once that insurance is active and they will provide him with appointments. PHP staff member was receptive. Dennys did share that they can do self-pay if they would like, in which it is $225 for a therapy session and $250 for med management. PHP staff member was receptive and noted she would relay that information to Angel and his . PHP staff member followed up with Maritza and provided her with the information noted above. Maritza said why does this have to be so difficult. PHP staff member apologized and noted that she also reached out to [facility] requesting a list of in network providers in the [facility] area and received an email from them today stating they submitted a request for referrals for in network providers and explored with Maritza if she would like that reference number. Elainetomas disclosed that she would like that information. [facility] staff member provided her with that reference number of [id number]. Elainetomas was receptive and said it looks like we can't do anything until his insurance is active and she will call then. PHP staff member was receptive.
--- NOTE | 2025-11-17 14:46 | HO.PHP ---
[facility] staff member received a phone call from Maritza, Angel's partner, stating that she was thinking that it would be helpful to schedule appointments for Angel and she will enroll in self-pay until the insurance takes over. [facility] staff member was receptive and suggested that we contact [facility] together and schedule that appointment so there is no confusion around aftercare planing. Maritza was in agreement. [facility] staff member and Maritza spoke to Irma who provided a therapy appointment for December 06, 2025 at 6 PM with Bernardo Cowan / . [facility] staff member had to run a group so she was unable to complete the phone call to gather the med provider appointment but Maritza stayed on that line to obtain the med provider appointment. [facility] staff followed up with Maritza and left a VM. Maritza provided a VM with the med provider appointment which is December 05, 2025 at 11 AM with Deana.
--- NOTE | 2025-11-21 12:50 | HO.PHP ---
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 Discussion took place about Coping with Triggering Events: Setback and Relapse Prevention Planning. Angel shared that potential factors that may influence setback is substance availability and people who enable or trigger use. He described that he has been able to set boundaries and communicate that he is not interested. Sometimes this works, and other times people test those limits. He expressed telling his family not to bring alcohol around was helpful, he utilizes his supports of his and mom, and he verbalized leaving the room if needed on occasion. A handout on effective coping skills for addiction was provided to the pt as a resource.
--- NOTE | 2025-11-21 23:41 | P.PNPSP_ITS ---
Subjective Subjective Date of Service: 11/18/25 Reason For Visit: schizoaffective d/o,AUD,DEDE Interim History: Patient seen for follow-up, Patient initially reticent about discharge next week. Says he is feeling apprehensive, some things have improved, other things less so. Mood is more level MS at 8 or 9/10, less swinging, although is still feeling on the low side (3-4/10 severity depression. Lexapro is 10 mg, he has noticed significant sexual dysfunction (both prolonged climax and specifically experiencing retrograde ejaculation, pain less) which is likely from Lexparo and second issue since addition risperidone. Apprehensive about lowering Lexapro, but willing to do so if some will be relplaced by another antidepressant. Will start WB SR 50 mg qm and lower Lexapro to 7.5 mg. He does not recall having issues under 10 mg, although believes he was skipped over 7.5. He contiues to have nightmares on 1 mg prazosin, denies any lightheadedness, and is willing to increase the dose of prazosin to 2. If no issues and still not optimal (no AE) may try 3 mg qhs. Pt continue to struggle with cravings for both cocaine but especially alcohol. He will consider starting naltrexone next week. Will likely be advocating for more time/extension. Medication Compliance: Yes Side effects from medications: Yes Attending Groups: Yes Review of Systems Acute medical concerns: No Mental Status Exam Mental Status Exam Narrative: Alert, oriented, in no acute distress. Calm, cooperative, engaged. No psychomotor agitation or neurovegetative retardation. Eye contact maintained. Mood depressed, affect constricted. Speech normal. Thought process linear, coherent. Thought content related to stressors, transient hopelessness, denies SI or HI. No paranoia or delusional content elicited. No evidence of psychosis. Insight and judgment - fair but adequate. Diagnostics Vital Signs (24Hr): BMI result Body Mass Index 32.2 Assessment & Plan Assessment & Plan (1) Schizophrenia: Status: Acute Code(s): F20.9 - Schizophrenia, unspecified (2) Cocaine use disorder: Status: Acute Code(s): F14.90 - Cocaine use, unspecified, uncomplicated (3) Percocet use disorder, moderate, in early remission: Status: Acute Code(s): F11.21 - Opioid dependence, in remission Plan Discharge from [facility] We recommend step-down to IOP level of care Continue regular medications? Refills sent to pharmacy Will defer further medication management until patient return to IOP *Safety plan reviewed *Discharge diagnoses, treatment course, discharge plan have been reviewed with patient (including medication regime, medication management, potential side effects) as well as treatment rationale were also revisited *Discharge paperwork signed and given to patient, copy sent for scanning to chart Patient educated on: diagnosis, medication risk/benefits and substance abuse Reason for contiued partial hosp. stay Substantial Risk for: rapid decompensation and med/psych decompensation Certification I certify that partial hospital treatment is medically necessary due to the symptoms and problems resulting from the patient's mental illness and the failure to treat the patient at the partial hospital level of care would likely result in the patient requiring inpatient psychiatric care which could not be prevented at a less intensive level of care. Total time managing care of this patient today __30__ minutes. Discharge Plan Discharge Attending provider: Julia Senior Additional Instructions: Angel's OP therapy appointment is scheduled for November 17, 2025 at 2 PM with George Erwin via [employer]. and . Angel has a med provider appointment scheduled for December 08, 2024 at 10 AM with Isrrael Bullock. and . Medications: New prazosin 1 mg capsule 1 - 2 mg PO BEDTIME PRN (Reason: sleep, nightmares) Qty: 20 0RF bupropion HCl 100 mg tablet sustained-release 12 hr 100 mg PO QAM Qty: 20 0RF prazosin 2 mg capsule 2 mg PO BEDTIME Qty: 30 0RF prazosin 1 mg capsule 1 mg PO BEDTIME Qty: 30 0RF naltrexone 50 mg tablet 50 mg PO DAILY Qty: 30 0RF ergocalciferol (vitamin D2) [Vitamin D2] 1,250 mcg (50,000 unit) capsule 1,250 mcg PO QWEEK Qty: 10 0RF cyanocobalamin (vitamin B-12) 1,000 mcg tablet 1,000 mcg PO DAILY Qty: 30 1RF Continued pantoprazole 40 mg tablet,delayed release (DR/EC) 40 mg PO DAILY escitalopram oxalate 10 mg Tablet 10 mg PO DAILY 30 Days Qty: 30 0RF risperidone 4 mg tablet 4 mg PO BEDTIME 30 Days Qty: 30 0RF Rx Instructions: take with 1mg tab risperidone 1 mg tablet 1 mg PO BEDTIME 30 Days Qty: 30 1RF Rx Instructions: take with 4mg tab Changed clonidine HCl 0.1 mg Tablet 0.1 mg PO BID PRN (Reason: anxiety) Qty: 60 0RF Protocol: Hold for SBP< HOLD for SBP < : 90 Rx Instructions: before 5 pm escitalopram oxalate 5 mg tablet 5 mg PO DAILY Qty: 30 0RF Stand Alone Forms: Patient Portal Discharge page Patient Education: Cocaine Use Disorder (ED), Bipolar Disorder (ED), Bipolar Disorder (DC), Alcohol Use Disorder (ED) Print Language: Niuean
--- NOTE | 2025-11-21 23:42 | P.PNPSP_ITS ---
Subjective Subjective Date of Service: 11/21/25 Reason For Visit: schizoaffective d/o,AUD,DEDE Interim History: Patient seen for follow-up, anticipating discharge at the end of program today.? Reports no acute issues or concerns. Medication compliant, medications well- tolerated. Denies any adverse effects.? Mood is stable.? Denies any hopelessness or SI. Denies thoughts of harming self or others at this time. Denies any aggressive ideation or HI. Denies any paranoia or AH or VH. Sleep, appetite, energy stable. Medication Compliance: Yes Side effects from medications: No Attending Groups: Yes Review of Systems Acute medical concerns: No Mental Status Exam Mental Status Exam Narrative: Alert, oriented, in no acute distress. Calm, cooperative. Mood stable, affect appropriate. Speech normal. Thought process linear, coherent, more goal- directed. Thought content related to stressors, future-oriented, denies any helplessness, hopelessness or SI.? No aggressive ideation or HI. No paranoia or delusional content elicited. No evidence of psychosis. Insight and judgment fair-good. Diagnostics Vital Signs (24Hr): BMI result Body Mass Index 32.2 Assessment & Plan Assessment & Plan (1) Mood disorder: Status: Acute Code(s): F39 - Unspecified mood [affective] disorder (2) Psychotic disorder with hallucinations: Status: Acute Code(s): F29 - Unspecified psychosis not due to a substance or known physiological condition Assessment and Plan: Schizophrenic spectrum disorder vs SIPD (3) Cocaine use disorder: Status: Acute Code(s): F14.90 - Cocaine use, unspecified, uncomplicated (4) Percocet use disorder, moderate, in early remission: Status: Acute Code(s): F11.21 - Opioid dependence, in remission Plan Discharge from [facility] We recommend step-down to IOP level of care Agreeable to starting naltrexone 50 mg qhs continue Wellbutrin SR 50 mg qam continue Lexapro 7.5 mg qd (insurance will not approve 1.5 tabs/d without PA, will order bottle of 10s and 5s and pt to take 1/2 tablet of each to = 7.5 mg) Continue other regular medications? Refills sent to pharmacy Will planning to check in with OP provider, and will further medication management when he returns to IOP *Safety plan reviewed *Discharge diagnoses, treatment course, discharge plan have been reviewed with patient (including medication regime, medication management, potential side effects) as well as treatment rationale were also revisited *Discharge paperwork signed and given to patient, copy sent for scanning to chart Patient educated on: diagnosis, medication risk/benefits and substance abuse Informed Consent: understands Reason for contiued partial hosp. stay Substantial Risk for: stable for discharge and med/psych decompensation Certification I certify that partial hospital treatment is medically necessary due to the symptoms and problems resulting from the patient's mental illness and the failure to treat the patient at the partial hospital level of care would likely result in the patient requiring inpatient psychiatric care which could not be prevented at a less intensive level of care. Total time managing care of this patient today __40__ minutes. Discharge Plan Discharge Attending provider: Julia Senior Additional Instructions: Angel's OP therapy appointment is scheduled for November 17, 2025 at 2 PM with George Erwin via telehealth. and . Angel has a med provider appointment scheduled for December 08, 2024 at 10 AM with Isrrael Bullock. and . Medications: New prazosin 1 mg capsule 1 - 2 mg PO BEDTIME PRN (Reason: sleep, nightmares) Qty: 20 0RF bupropion HCl 100 mg tablet sustained-release 12 hr 100 mg PO QAM Qty: 20 0RF prazosin 2 mg capsule 2 mg PO BEDTIME Qty: 30 0RF prazosin 1 mg capsule 1 mg PO BEDTIME Qty: 30 0RF naltrexone 50 mg tablet 50 mg PO DAILY Qty: 30 0RF ergocalciferol (vitamin D2) [Vitamin D2] 1,250 mcg (50,000 unit) capsule 1,250 mcg PO QWEEK Qty: 10 0RF cyanocobalamin (vitamin B-12) 1,000 mcg tablet 1,000 mcg PO DAILY Qty: 30 1RF Continued pantoprazole 40 mg tablet,delayed release (DR/EC) 40 mg PO DAILY escitalopram oxalate 10 mg Tablet 10 mg PO DAILY 30 Days Qty: 30 0RF risperidone 4 mg tablet 4 mg PO BEDTIME 30 Days Qty: 30 0RF Rx Instructions: take with 1mg tab risperidone 1 mg tablet 1 mg PO BEDTIME 30 Days Qty: 30 1RF Rx Instructions: take with 4mg tab Changed clonidine HCl 0.1 mg Tablet 0.1 mg PO BID PRN (Reason: anxiety) Qty: 60 0RF Protocol: Hold for SBP< HOLD for SBP < : 90 Rx Instructions: before 5 pm escitalopram oxalate 5 mg tablet 5 mg PO DAILY Qty: 30 0RF Stand Alone Forms: Patient Portal Discharge page Patient Education: Cocaine Use Disorder (ED), Bipolar Disorder (ED), Bipolar Disorder (DC), Alcohol Use Disorder (ED) Print Language: [place]
== END 2025-11-21 23:59 | disposition home or self-care (01) ==
LOC: HO.PHPA 12:45
PROVIDERS: Visit Provider Psychiatry & Neurology Psychiatry
DX: F39 Unspecified mood [affective] disorder (principal); F29 Unspecified psychosis not due to a substance or known physiological condition; F14.90 Cocaine use, unspecified, uncomplicated; F11.21 Opioid dependence, in remission; Z79.899 Other long term (current) drug therapy
CPT/HCPCS: 80307; 90791; 90853

== ENCOUNTER → 2025-11-21 12:45 | Outpatient (BNV) | payer BC, OTHER, SELFPAY | PROVIDERS: Visit Provider Psychiatry & Neurology Psychiatry | DX: F20.9 Schizophrenia, unspecified (principal); F14.90 Cocaine use, unspecified, uncomplicated; F11.21 Opioid dependence, in remission | CPT/HCPCS: 99214 ==